=== PATIENT | female | born 1940 | race Caucasian/White ===

== ENCOUNTER 2017-04-24 15:45 | Observation (INO) | payer MEDICARE, OTHER ==
[2017-04-24 16:45] LABS: ABSOLUTE BASOPHILS # (AUTO) 0.1 10^3/uL (0.0-0.2); ABSOLUTE EOSINOPHILS # (AUTO) 0.2 10^3/uL (0.0-0.6); ABSOLUTE LYMPHOCYTES (AUTO) 2.8 10^3/uL (0.5-4.7); ABSOLUTE MONOCYTES (AUTO) 0.7 10^3/uL (0.1-1.4); HEMATOCRIT 41.6 % (36.0-47.0); HEMOGLOBIN 13.9 g/dL (12.0-15.5); HGB HCT DIFFERENCE 0.1; LYMPHOCYTES % (AUTO) 35.8 % (13-45); MEAN CORPUSCULAR HEMOGLOBIN 26.2 pg (27.0-33.4); MEAN CORPUSCULAR HGB CONC 33.4 g/dL (32.0-36.0); MEAN CORPUSCULAR VOLUME 78 fl (80-97); MONOCYTES % (AUTO) 9.5 % (3-13); RED BLOOD COUNT 5.31 10^6/uL (3.72-5.28); RED CELL DISTRIBUTION WIDTH 16.3 % (11.5-14.0); SEGMENTED NEUTROPHILS % (AUTO) 51.7 % (42-78); WHITE BLOOD COUNT 7.8 10^3/uL (4.0-10.5)
[2017-04-24 17:00] LABS: APPEARANCE,URINE CLEAR; BILIRUBIN,URINE NEGATIVE (NEGATIVE); GLUCOSE, URINE NEGATIVE (NEGATIVE); KETONES,URINE NEGATIVE (NEGATIVE); LEUKOCYTE ESTERASE,URINE NEGATIVE (NEGATIVE); NITRITE,URINE NEGATIVE (NEGATIVE); PROTEIN,URINE 100 mg/dL (NEGATIVE); URINE SPECIFIC GRAVITY 1.004; UROBILINOGEN,URINE NEGATIVE mg/dL (<2.0)
[2017-04-24 17:01] LABS: ALANINE AMINOTRANSFERASE 35 U/L (9-52); ALBUMIN 4.3 g/dL (3.5-5.0); ALKALINE PHOSPHATASE 117 U/L (38-126); ANION GAP 12 (5-19); ASPARTATE AMINO TRANSFERASE 31 U/L (14-36); BILIRUBIN,DIRECT 0.4 mg/dL (0.0-0.4); BILIRUBIN,TOTAL 0.4 mg/dL (0.2-1.3); BLOOD UREA NITROGEN 19 mg/dL (7-20); CALCIUM 10.1 mg/dL (8.4-10.2); CARBON DIOXIDE 24 mmol/L (22-30); CHLORIDE 104 mmol/L (98-107); CREATINE KINASE 69 U/L (30-135); CREATININE RESULT 1.13 mg/dL (0.52-1.25); GLUCOSE 104 mg/dL (75-110); LIPASE 240.5 U/L (23-300); POTASSIUM 4.4 mmol/L (3.6-5.0); SODIUM 140.2 mmol/L (137-145); TOTAL PROTEIN 7.6 g/dL (6.3-8.2)
--- NOTE | 2017-04-24 17:04 | ER Document Report ---
ED Medical Screen (RME) - General Chief Complaint: Weakness Stated Complaint: POSSIBLE STROKE Time Seen by Provider: 04/24/17 16:07 TRAVEL OUTSIDE OF THE [place] IN LAST 30 DAYS: No - HPI Notes: 04/24/17 17:03 Intermittent right-sided weakness slurred speech does not resolve initially started around 130 2:00 patient states has a history of irregular heartbeat. - Related Data Allergies/Adverse Reactions: levofloxacin [From Levaquin] Allergy (Verified 08/13/11 11:43) rash morphine [Morphine] Allergy (Verified 08/13/11 11:43) Hallucinations nitrofurantoin [From Macrobid] Allergy (Verified 08/13/11 11:43) rash nitrofurantoin macrocrystalline [From Macrobid] Allergy (Verified 08/13/11 11:43 ) rash sulfamethoxazole [From Septra] Allergy (Verified 08/13/11 11:43) kidney pain trimethoprim [From Septra] Allergy (Verified 08/13/11 11:43) kidney pain Past Medical History - Social History Chew tobacco use (# tins/day): No - 1 ppd Frequency of alcohol use: None Drug Abuse: None - Past Medical History Cardiac Medical History: Reports: Hx Hypercholesterolemia, Hx Hypertension Endocrine Medical History: Reports: Hx Diabetes Mellitus Type 2 Renal/ Medical History: Denies: Hx Peritoneal Dialysis Past Surgical History: Reports: Hx Section, Hx Tonsillectomy - Immunizations Hx Diphtheria, Pertussis, Tetanus Vaccination: Yes - 2011 Review of Systems - Review of Systems Constitutional: Other - Unilateral weakness and slurred speech Physical Exam - Vital signs Vitals: Temp Pulse Resp BP Pulse Ox 97.5 F 54 L 16 187/50 H 97 04/24/17 15:53 04/24/17 15:53 04/24/17 15:53 04/24/17 15:53 04/24/17 15:53 - Respiratory Respiratory status: No respiratory distress Chest status: Nontender Breath sounds: Normal Chest palpation: Normal Course - Vital Signs Vital signs: Temp Pulse Resp BP Pulse Ox 97.5 F 54 L 16 187/50 H 97 04/24/17 15:53 04/24/17 15:53 04/24/17 15:53 04/24/17 15:53 04/24/17 15:53 - Laboratory Result Diagrams: 04/24/17 16:30 04/24/17 16:30 Laboratory results interpreted by me: 04/24/17 16:30 RBC 5.31 H MCV 78 L MCH 26.2 L RDW 16.3 H
--- NOTE | 2017-04-24 17:04 | RADIOLOGY REPORT (SQ) ---
EXAM DESCRIPTION: CT HEAD WITHOUT COMPLETED DATE/TIME: 04/24/2017 4:56 pm REASON FOR STUDY: weakness COMPARISON: None. TECHNIQUE: Axial images acquired through the brain without intravenous contrast. Images reviewed wi th bone, brain and subdural windows. Images stored on PACS. All CT scanners at this facility use dose modulation, iterative reconstruction, and/or weight based d osing when appropriate to reduce radiation dose to as low as reasonably achievable (ALARA). [facility]: Dose Right [facility]: CareDose [facility]: Dose Right [facility]: Teradose 4D [facility]: Conjecta RADIATION DOSE: Up-to-date CT equipment and radiation dose reduction techniques were employed. CTDIv ol: 64.6 mGy. DLP: 1034 mGy-cm. mGy. LIMITATIONS: None. FINDINGS: VENTRICLES: Prominent. CEREBRUM: No masses. No hemorrhage. No midline shift. Areas of low density in the white matter mos t likely due to chronic micro-vascular ischemic change. No evidence for acute infarction. CEREBELLUM: No masses. No hemorrhage. No alteration of density. No evidence for acute infarction. EXTRAAXIAL SPACES: Mild age-related involutional change. No fluid collections. No masses. ORBITS AND GLOBE: No intra- or extraconal masses. Normal contour of globe without masses. CALVARIUM: No fracture. PARANASAL SINUSES: No fluid or mucosal thickening. SOFT TISSUES: No mass or hematoma. OTHER: No other significant finding. IMPRESSION: MILD CHRONIC CHANGES OF ATROPHY AND MICROVASCULAR ISCHEMIA. NO ACUTE PROCESS. TECHNICAL DOCUMENTATION: JOB ID: [id number] Quality ID # [id number]: Final reports with documentation of one or more dose reduction techniques (e.g., Au tomated exposure control, adjustment of the mA and/or kV according to patient size, use of iterative reconstruction technique) 2010 [employer]- All Rights Reserved
--- NOTE | 2017-04-24 17:05 | RADIOLOGY REPORT (SQ) ---
EXAM DESCRIPTION: CHEST SINGLE VIEW COMPLETED DATE/TIME: 04/24/2017 4:57 pm REASON FOR STUDY: tia symtpoms COMPARISON: None. EXAM PARAMETERS: NUMBER OF VIEWS: One view. TECHNIQUE: Single frontal radiographic view of the chest acquired. RADIATION DOSE: NA LIMITATIONS: None. FINDINGS: LUNGS AND PLEURA: No opacities, masses or pneumothorax. No pleural effusion. MEDIASTINUM AND HILAR STRUCTURES: No masses. Contour normal. HEART AND VASCULAR STRUCTURES: Heart normal in size. Normal vasculature. BONES: No acute findings. HARDWARE: None in the chest. OTHER: No other significant finding. IMPRESSION: NO ACUTE RADIOGRAPHIC FINDING IN THE CHEST. TECHNICAL DOCUMENTATION: JOB ID: [id number]
[2017-04-24 17:13] LABS: CREATINE KINASE MB 0.64 ng/mL (<4.55)
[2017-04-24 17:25] LABS: TROPONIN I < 0.012 ng/mL
--- NOTE | 2017-04-24 18:09 | ER Document Report ---
ED Neuro Symptoms/Deficit <SUSANNAHMAURO - Last Filed: 04/24/17 19:35> - General Mode of Arrival: Ambulatory Information source: Patient Notes: Patient is a 77 year old female presenting to the emergency department for stroke like symptoms. Patient's symptoms were onset around 13:30-13:45 while she was at the store. Patient states she started having some right upper extremity weakness and was having difficulty raising her arm to grab the steering wheel. Patient states she was able to get home however she continued to have some weakness in her right side as well as some difficulty moving her right lower extremity. Patient states she took half a 325 mg Aspirin when she got home from the store. Patient contacted her son at 14:30 and she continued to have symptoms when he arrived including right upper and lower extremities, right facial weakness, and some slurred speech. Patient had to be lifted into the vehicle by her son because she wasn't able to ambulate or brain picker her right lower extremity. Patient was dragging her foot earlier when walking. Patient states that once she arrived at the emergency department she started getting a little better and after being brought to her room she states she has full strength and mobility in her upper and lower extremities. Patient's son states that her speech is back to normal and she is doing much better than she was when he arrived to her house. Patient states she has a history of diabetes mellitus, hypertension, hypercholesterolemia, anemia, and a heart murmur. Patient states she takes iron supplements and started taking 325 mg Aspirin daily. Patient also states she had a carotid Doppler completed 6 months ago and her PCP also found her heart murmur about 3 months ago. Patient's PCP is Dr. Vu. TRAVEL OUTSIDE OF THE [place] IN LAST 30 DAYS: No - HPI Altered sensation: RUE, R facial Associated symptoms: Other - slurred speech Similar symptoms previously: No Recently seen / treated by doctor: No <ALINE GENTILE - Last Filed: 04/24/17 22:37> - General Chief Complaint: Weakness Stated Complaint: POSSIBLE STROKE Time Seen by Provider: 04/24/17 16:07 - Related Data Allergies/Adverse Reactions: levofloxacin [From Levaquin] Allergy (Verified 08/13/11 11:43) rash morphine [Morphine] Allergy (Verified 08/13/11 11:43) Hallucinations nitrofurantoin [From Macrobid] Allergy (Verified 08/13/11 11:43) rash nitrofurantoin macrocrystalline [From Macrobid] Allergy (Verified 08/13/11 11:43 ) rash sulfamethoxazole [From Septra] Allergy (Verified 08/13/11 11:43) kidney pain trimethoprim [From Septra] Allergy (Verified 08/13/11 11:43) kidney pain Past Medical History - General Information source: Patient - Social History Smoking Status: Current Every Day Smoker Cigarette use (# per day): Yes - 1 ppd Frequency of alcohol use: None Drug Abuse: None Family History: None Patient has suicidal ideation: No Patient has homicidal ideation: No - Medical History Medical History: Other - anemia - Past Medical History Cardiac Medical History: Reports: Hx Hypercholesterolemia, Hx Hypertension Endocrine Medical History: Reports: Hx Diabetes Mellitus Type 2 Past Surgical History: Reports: Hx Section, Hx Tonsillectomy - Immunizations Hx Diphtheria, Pertussis, Tetanus Vaccination: Yes - 2011 Hx Pneumococcal Vaccination: 08/09/11 <ALINE GENTILE - Last Filed: 04/24/17 22:37> Review of Systems - Review of Systems Constitutional: No symptoms reported EENT: No symptoms reported Cardiovascular: No symptoms reported Respiratory: No symptoms reported Gastrointestinal: No symptoms reported Genitourinary: No symptoms reported Female Genitourinary: No symptoms reported Musculoskeletal: See HPI Skin: No symptoms reported Hematologic/Lymphatic: No symptoms reported Neurological/Psychological: See HPI, Weakness, Gait changes, Speech impairment -: Yes All other systems reviewed and negative <ALINE GENTILE - Last Filed: 04/24/17 22:37> Physical Exam - Vital signs Vitals: Temp Pulse Resp BP Pulse Ox 97.5 F 54 L 16 187/50 H 97 04/24/17 15:53 04/24/17 15:53 04/24/17 15:53 04/24/17 15:53 04/24/17 15:53 <MAURO DAVALOS - Last Filed: 04/24/17 19:35> - Vital signs Vitals: Temp Pulse Resp BP Pulse Ox 97.5 F 54 L 16 187/50 H 97 04/24/17 15:53 04/24/17 15:53 04/24/17 15:53 04/24/17 15:53 04/24/17 15:53 Interpretation: Hypertensive - Notes Notes: GENERAL: Alert, interacts well. No acute distress. HEAD: Normocephalic, atraumatic. EYES: Appear normal. Pupils equal, round, and reactive to light. ENT: Moist mucus membranes, tongue midline. NECK: Full range of motion. Supple. Trachea midline. Systolic murmur heard in the carotids bilaterally. LUNGS: Clear to auscultation bilaterally, no wheezes, rales, or rhonchi. No respiratory distress. HEART: Regular rate and rhythm. Systolic murmur that transmits into her carotids bilaterally. ABDOMEN: Soft, non-tender. Non-distended. Normal bowel sounds. EXTREMITIES: Moves all 4 extremities spontaneously. Normal strength. No edema. Equal microbiological laboratory technician strength. Able to touch each index finger to nose with eyes closed. Able to lift lower extremities off the bed and hold position. NEUROLOGICAL: Alert and oriented x3. Normal speech. No focal neurological deficits. GCS 15. PSYCH: Normal affect, normal mood. SKIN: Warm, dry, normal turgor. No rashes or lesions noted. <ALINE GENTILE - Last Filed: 04/24/17 22:37> Course - Re-evaluation Re-evalutation: 04/24/17 19:27 The patient is symptom-free at this time with a normal neurological exam. She is not a TPA candidate at this time. - Vital Signs Vital signs: Temp Pulse Resp BP Pulse Ox 97.5 F 50 L 17 184/61 H 96 04/24/17 15:53 04/24/17 18:00 04/24/17 19:02 04/24/17 19:02 04/24/17 19:02 - Laboratory Result Diagrams: 04/24/17 16:30 04/24/17 16:30 Laboratory results interpreted by me: 04/24/17 04/24/17 04/24/17 16:30 16:30 16:40 RBC 5.31 H MCV 78 L MCH 26.2 L RDW 16.3 H Est GFR ( Amer) 56 L Est GFR (Non-Af Amer) 47 L Urine Protein 100 H - Diagnostic Test Radiology reviewed: Image reviewed, Reports reviewed - Chest x-ray is unremarkable, CT scan shows mild chronic atrophy and microvascular ischemic white matter changes - EKG Interpretation by [place] EKG shows normal: Sinus rhythm, [place], Intervals, QRS Complexes. abnormal: ST-T Waves - Abnormal lateral T's Rate: Bradycardia - 47 When compared to previous EKG there are: Previous EKG unavailable - Consults Dr. Soliz Time consulted: 19:25 Consulted provider: will come to ER - IMCU admission, add on ESR <MAURO DAVALOS - Last Filed: 04/24/17 19:35> - Vital Signs Vital signs: Temp Pulse Resp BP Pulse Ox 97.5 F 54 L 16 187/50 H 97 04/24/17 15:53 04/24/17 15:53 04/24/17 15:53 04/24/17 15:53 04/24/17 15:53 - Laboratory Result Diagrams: 04/24/17 16:30 04/24/17 16:30 Laboratory results interpreted by me: 04/24/17 04/24/17 04/24/17 16:30 16:30 16:40 RBC 5.31 H MCV 78 L MCH 26.2 L RDW 16.3 H Est GFR ( Amer) 56 L Est GFR (Non-Af Amer) 47 L Urine Protein 100 H <ALINE GENTILE - Last Filed: 04/24/17 22:37> ED [employer]/Exc Criteria ED NIH Stroke Scale Discharge - Discharge Admitting Provider: Hospitalist Unit Admitted: [facility] Scribe Attestation: 04/24/17 19:35 I personally performed the services described in the documentation, reviewed and edited the documentation which was dictated to the scribe in my presence, and it accurately records my words and actions. <MAURO DAVALOS - Last Filed: 04/24/17 19:35> <ALINE GENTILE - Last Filed: 04/24/17 22:37> - Discharge Clinical Impression: Transient ischemic attack (TIA) Qualifiers: Transient cerebral ischemia type: unspecified Qualified Code(s): G45.9 - Transient cerebral ischemic attack, unspecified High blood pressure Qualifiers: Hypertension type: essential hypertension Qualified Code(s): I10 - Essential ( primary) hypertension Condition: Stable Disposition: ADMITTED INPATIENT Scribe Documentation - Scribe Written by Scribe:: Cisco Velez 04/24/2017 18:20 acting as scribe for :: Susannah <ALINE GENTILE - Last Filed: 04/24/17 22:37>
[2017-04-24 19:29] LABS: ADD ON TESTING BLD IN LAB ACKNOWLEDGE
[2017-04-24] MEDS ORDERED: INSULIN LISPRO 100 UNIT/ML 3 ML VIAL SUBCUT PRN (19:30)
[2017-04-24] MEDS ORDERED: MAGNESIUM HYDROXIDE SUSP 30 ML UDCUP PO PRN (19:30)
[2017-04-24] MEDS ORDERED: DEXTROSE 40% GEL 15 GM TUBE PO PRN ×2 (19:30)
[2017-04-24] MEDS ORDERED: ACETAMINOPHEN 325 MG TABLET PO PRN (19:30)
[2017-04-24] MEDS ORDERED: GLUCAGON,HUMAN RECOMB 1 MG INJ IM PRN (19:30)
[2017-04-24] MEDS ORDERED: DEXTROSE 50%-WATER 25 GM/50 ML DISP.SYRIN IV PRN ×2 (19:30)
[2017-04-24] MEDS ORDERED: ATORVASTATIN CALCIUM 80 MG TABLET PO ONE (19:32)
[2017-04-24 19:48] LABS: C-REACTIVE PROTEIN < 5.0 mg/L (<10.0)
[2017-04-24] MEDS ORDERED: ASPIRIN/DIPYRIDAMOLE 25-200 MG 1 CAP.SR CPMP.12HR PO ONE (20:00)
[2017-04-24] MEDS: HEPARIN SOD (PORCINE) 5,000 UNIT/ML 1 ML SYRINGE SUBCUT SCH (21:07)
[2017-04-24] MEDS: ENALAPRILAT DIHYDRATE INJ/PF 1.25 MG/1 ML SDV IV PRN (22:34)
--- NOTE | 2017-04-24 23:35 | EKG REPORT ---
SEVERITY:- ABNORMAL ECG - SINUS BRADYCARDIA ABNORMAL T, CONSIDER ISCHEMIA, LATERAL LEADS : Confirmed by: Patricia Caballero 24-Apr-2017 23:34:31
--- NOTE | 2017-04-25 05:38 | PDOC H&P ---
History of Present Illness Admission Date/PCP: 04/24/17 19:30 MARGIE GARNETT MD Patient complains of: Right arm weakness and slurred speech History of Present Illness: ALYSON GARCIA is a 77 year old female with a past medical history of hypertension , diabetes, dyslipidemia, systolic murmur and tobacco who would been her usual state of health until approximately 6 hours prior to presentation. While attempting to start her car she was unable to raise her right arm to the steering wheel. The weakness resolved spontaneously and and she took 325 mg of aspirin followed by right facial weakness and some slurred speech. These symptoms prompted her evaluation emergency room where she is found to have a blood pressure of 187/50 and sinus bradycardia but symptoms of weakness and slurred speech have resolved completely. Patient denies hypoglycemia, previous episode, any recent change in medications, she is referred to the hospitalist for admission. Past Medical History Cardiac Medical History: Reports: Hyperlipidema, Hypertension Endocrine Medical History: Reports: Diabetes Mellitus Type 2 Psychiatric Medical History: Reports: Depression Past Surgical History Past Surgical History: Reports: Section, Tonsillectomy Social History Smoking Status: Current Every Day Smoker Cigarettes Packs Per Day: 1 Number of Years Smokin Last Time Smoked: 04/24/2017 Frequency of Alcohol Use: None Hx Recreational Drug Use: No Drugs: None - Advance Directive Resuscitation Status: Full Code Family History Family History: None, CVA Parental Family History Reviewed: Yes Children Family History Reviewed: Yes Sibling(s) Family History Reviewed.: Yes Medication/Allergy Home Medications: Amlodipine Besylate [Norvasc 10 mg Tablet] 10 mg PO DAILY 08/13/11 Ascorbic Acid [Vitamin C 500 Mg Tablet] 500 mg PO DAILY 08/13/11 Aspirin [Aspirin 81 mg Chewable Tablet] 81 mg PO DAILY 08/13/11 Atorvastatin Calcium [Lipitor 80 Mg Tablet] 80 mg PO QHS 08/13/11 Calcium/Magnesium/Vit D3 [Calcium 500 Mg Tablet] 1 each PO DAILY 08/13/11 Ezetimibe [Zetia 10 Mg Tablet] 10 mg PO DAILY 08/13/11 Hydrochlorothiazide [Hydrodiuril 25 mg Tablet] 25 mg PO QAM 08/13/11 Lisinopril [Prinivil 40 mg Tablet] 40 mg PO DAILY 08/13/11 Metformin HCl [Glucophage Xr] 500 mg PO QPM 08/13/11 [place]-3 Fatty Acids/Fish Oil [Fish Oil 1,000 Mg Capsule] 1 each PO DAILY Allergies/Adverse Reactions: levofloxacin [From Levaquin] Allergy (Verified 08/13/11 11:43) rash morphine [Morphine] Allergy (Verified 08/13/11 11:43) Hallucinations nitrofurantoin [From Macrobid] Allergy (Verified 08/13/11 11:43) rash nitrofurantoin macrocrystalline [From Macrobid] Allergy (Verified 08/13/11 11:43 ) rash sulfamethoxazole [From Septra] Allergy (Verified 08/13/11 11:43) kidney pain trimethoprim [From Septra] Allergy (Verified 08/13/11 11:43) kidney pain Review of Systems Constitutional: ABSENT: chills, fever(s), headache(s), weight gain, weight loss Eyes: ABSENT: visual disturbances Ears: ABSENT: hearing changes Cardiovascular: ABSENT: chest pain, dyspnea on exertion, edema, orthropnea, palpitations Respiratory: ABSENT: cough, hemoptysis Gastrointestinal: ABSENT: abdominal pain, constipation, diarrhea, hematemesis, hematochezia, nausea, vomiting Genitourinary: ABSENT: dysuria, hematuria Musculoskeletal: ABSENT: joint swelling Integumentary: ABSENT: rash, wounds Neurological: ABSENT: abnormal gait, abnormal speech, confusion, dizziness, focal weakness, syncope Psychiatric: ABSENT: anxiety, depression, homidical ideation, suicidal ideation Endocrine: ABSENT: cold intolerance, heat intolerance, polydipsia, polyuria Hematologic/Lymphatic: ABSENT: easy bleeding, easy bruising Physical Exam Vital Signs: Temp Pulse Resp BP Pulse Ox 98.0 F 46 L 20 161/47 H 95 04/25/17 03:42 04/25/17 03:42 04/25/17 03:42 04/25/17 03:42 04/25/17 03:42 Intake & Output 04/23/17 04/24/17 04/25/17 11:59 11:59 11:59 Weight 74.6 kg General appearance: PRESENT: no acute distress, well-developed, well-nourished Head exam: PRESENT: atraumatic, normocephalic Eye exam: PRESENT: conjunctiva pink, EOMI, PERRLA. ABSENT: scleral icterus Ear exam: PRESENT: normal external ear exam Mouth exam: PRESENT: moist, tongue midline Neck exam: PRESENT: other - Systolic murmur radiating to the carotid artery bilaterally. ABSENT: carotid bruit, JVD, lymphadenopathy, thyromegaly Respiratory exam: PRESENT: clear to auscultation tenisha. ABSENT: rales, rhonchi, wheezes Cardiovascular exam: PRESENT: bradycardia, RRR, +S1, +S2, systolic murmur. ABSENT: diastolic murmur, gallop, rubs Pulses: PRESENT: normal dorsalis pedis pul Vascular exam: PRESENT: normal capillary refill GI/Abdominal exam: PRESENT: normal bowel sounds, soft. ABSENT: distended, guarding, mass, organolmegaly, rebound, tenderness Rectal exam: PRESENT: deferred Extremities exam: PRESENT: full ROM. ABSENT: calf tenderness, clubbing, pedal edema Neurological exam: PRESENT: alert, awake, oriented to person, oriented to place , oriented to time, oriented to situation, CN II-XII grossly intact. ABSENT: motor sensory deficit Psychiatric exam: PRESENT: appropriate affect, normal mood. ABSENT: homicidal ideation, suicidal ideation Skin exam: PRESENT: dry, intact, warm. ABSENT: cyanosis, rash Results Laboratory Results: 04/24/17 19:50 Troponin I < 0.012 Impressions: Chest X-Ray 04/24/17 16:07 IMPRESSION: NO ACUTE RADIOGRAPHIC FINDING IN THE CHEST. Head CT 04/24/17 16:07 IMPRESSION: MILD CHRONIC CHANGES OF ATROPHY AND MICROVASCULAR ISCHEMIA. NO ACUTE PROCESS. Assessment & Plan - Diagnosis (1) Transient ischemic attack (TIA) Qualifiers: Transient cerebral ischemia type: unspecified Qualified Code(s): G45.9 - Transient cerebral ischemic attack, unspecified Is this a current diagnosis for this admission?: Yes Plan: CVA care set, aspirin, Lipitor, permissive hypertension, follow-up carotid Doppler, MRI and echocardiogram. (2) Systolic murmur Is this a current diagnosis for this admission?: Yes Plan: Suspected aortic stenosis, follow-up 2D echo (3) High blood pressure Qualifiers: Hypertension type: essential hypertension Qualified Code(s): I10 - Essential (primary) hypertension Is this a current diagnosis for this admission?: Yes Plan: Permissive hypertension as needed Vasotec (4) Dyslipidemia Is this a current diagnosis for this admission?: Yes Plan: Lipid profile (5) Diabetes Is this a current diagnosis for this admission?: Yes Plan: Metformin held, sliding scale insulin and A1c ordered - Time Time Spent: 50 to 70 Minutes
[2017-04-25 05:41] LABS: ABSOLUTE BASOPHILS # (AUTO) 0.1 10^3/uL (0.0-0.2); ABSOLUTE EOSINOPHILS # (AUTO) 0.1 10^3/uL (0.0-0.6); ABSOLUTE LYMPHOCYTES (AUTO) 2.6 10^3/uL (0.5-4.7); ABSOLUTE MONOCYTES (AUTO) 0.9 10^3/uL (0.1-1.4); ABSOLUTE NEUT (AUTO) 4.2 10^3/uL (1.7-8.2); BASOPHILS % (AUTO) 1.3 % (0-2); EOSINOPHILS % (AUTO) 1.5 % (0-6); HEMATOCRIT 36.7 % (36.0-47.0); HEMOGLOBIN 12.5 g/dL (12.0-15.5); HGB HCT DIFFERENCE 0.8; LYMPHOCYTES % (AUTO) 33.3 % (13-45); MEAN CORPUSCULAR HEMOGLOBIN 26.3 pg (27.0-33.4); MEAN CORPUSCULAR VOLUME 77 fl (80-97); MONOCYTES % (AUTO) 10.9 % (3-13); RED BLOOD COUNT 4.75 10^6/uL (3.72-5.28); RED CELL DISTRIBUTION WIDTH 16.2 % (11.5-14.0); WHITE BLOOD COUNT 7.9 10^3/uL (4.0-10.5)
[2017-04-25] MEDS: HEPARIN SOD (PORCINE) 5,000 UNIT/ML 1 ML SYRINGE SUBCUT SCH ×3 (05:47→21:26)
[2017-04-25 05:58] LABS: ANION GAP 8 (5-19); BLOOD UREA NITROGEN 19 mg/dL (7-20); CALCIUM 9.7 mg/dL (8.4-10.2); CARBON DIOXIDE 26 mmol/L (22-30); CHLORIDE 108 mmol/L (98-107); CHOLESTEROL 147.95 mg/dL (0-200); CREATININE RESULT 1.05 mg/dL (0.52-1.25); Direct HDL 25 mg/dL (>40); GLUCOSE 114 mg/dL (75-110); POTASSIUM 3.8 mmol/L (3.6-5.0); SODIUM 141.5 mmol/L (137-145); TRIGLYCERIDES 174 mg/dL (<150)
[2017-04-25 06:08] LABS: DIRECT LDL 99 mg/dL (<100)
[2017-04-25 06:15] LABS: VLDL CHOLESTEROL 34.8 mg/dL (10-31)
[2017-04-25] MEDS: ENALAPRILAT DIHYDRATE INJ/PF 1.25 MG/1 ML SDV IV PRN ×2 (08:23→23:45)
[2017-04-25] MEDS ORDERED: ASPIRIN/DIPYRIDAMOLE 25-200 MG 1 CAP.SR CPMP.12HR PO SCH (10:00)
--- NOTE | 2017-04-25 15:42 | RADIOLOGY REPORT (SQ) ---
EXAM DESCRIPTION: MRI HEAD WITHOUT COMPLETED DATE/TIME: 04/25/2017 3:25 pm REASON FOR STUDY: tia COMPARISON: CT dated 04/24/2017. TECHNIQUE: Multiplanar imaging includes non-contrasted T1, T2, FLAIR, and Diffusion with ADC map seq uences. Images stored on PACS. LIMITATIONS: None. FINDINGS: ANATOMY: No anomalies. Normal vascular flow voids. Pituitary fossa normal. CSF SPACES: Normal in size and contour. No hemorrhage. CEREBRUM: A few high-signal intensity lesions scattered throughout the white matter on FLAIR imaging with distribution suggesting chronic micro-vascular ischemic change. Sulci and gyri normal in size a nd contour. No evidence of hemorrhage, mass or extraaxial fluid collection. POSTERIOR FOSSA: No signal alteration. No hemorrhage. No edema, masses or mass effect. Internal bill tory canals, cerebello-pontine angles, mastoids normal. DIFFUSION: Small 2 mm focal area of mild restricted diffusion in the posterior left lentiform nucleus . ORBITS: No masses. Globes normal. PARANASAL SINUSES: No fluid levels. Mucosa normal. OTHER: No other significant finding. IMPRESSION: MINIMAL MICROVASCULAR ISCHEMIC CHANGE. POSSIBLE TINY ACUTE LACUNAR INFARCT IN THE LEFT BASAL GANGLIA. OTHERWISE NORMAL STUDY. EVIDENCE OF ACUTE STROKE: POSSIBLE TINY ACUTE LACUNAR INFARCT IN THE LEFT BASAL GANGLIA. LEFT MCA TECHNICAL DOCUMENTATION: JOB ID: [id number] [employer]- All Rights Reserved
[2017-04-25] MEDS ORDERED: METFORMIN HCL 500 MG TABLET PO SCH ×2 (16:00)
[2017-04-25] MEDS ORDERED: SITAGLIPTIN PHOSPHATE 50 MG TABLET PO SCH (17:00)
[2017-04-25] MEDS ORDERED: METFORMIN HCL 500 MG TABLET PO ONE (17:00)
--- NOTE | 2017-04-25 17:20 | PDOC PROGRESS REPORT ---
Subjective Progress Note for:: 04/25/17 Subjective:: Patient seen on morning rounds. She is resting comfortably in bed. She is awake alert and oriented 3. Right arm weakness and slurred speech have resolved. She denies any chest pain, shortness of breath or dyspnea. Denies any nausea, vomiting or abdominal pain. She denies any significant arthralgias or myalgias. Her son is at bedside. Patient does live independently alone. Her is at primary after having CVA in November. Remaining review of systems is negative. Physical Exam Vital Signs: Temp Pulse Resp BP Pulse Ox 98.0 F 57 L 16 193/55 H 97 04/25/17 11:45 04/25/17 14:00 04/25/17 11:45 04/25/17 11:45 04/25/17 11:45 Intake & Output 04/24/17 04/25/17 04/26/17 06:59 06:59 06:59 Intake Total 3 Balance 3 Weight 74.6 kg General appearance: PRESENT: no acute distress, well-developed, well-nourished Head exam: PRESENT: atraumatic, normocephalic Eye exam: PRESENT: conjunctiva pink, EOMI, PERRLA. ABSENT: scleral icterus Ear exam: PRESENT: normal external ear exam Mouth exam: PRESENT: moist, tongue midline Neck exam: ABSENT: carotid bruit, JVD, lymphadenopathy, thyromegaly Respiratory exam: PRESENT: clear to auscultation tenisha. ABSENT: rales, rhonchi, wheezes Cardiovascular exam: PRESENT: RRR. ABSENT: diastolic murmur, rubs, systolic murmur Pulses: PRESENT: normal dorsalis pedis pul Vascular exam: PRESENT: normal capillary refill GI/Abdominal exam: PRESENT: normal bowel sounds, soft. ABSENT: distended, guarding, mass, organolmegaly, rebound, tenderness Rectal exam: PRESENT: deferred Extremities exam: PRESENT: full ROM. ABSENT: calf tenderness, clubbing, pedal edema Musculoskeletal exam: PRESENT: ambulatory, full ROM, normal inspection, tenderness Neurological exam: PRESENT: alert, awake, oriented to person, oriented to place , oriented to time, oriented to situation, CN II-XII grossly intact. ABSENT: motor sensory deficit Psychiatric exam: PRESENT: appropriate affect, normal mood. ABSENT: homicidal ideation, suicidal ideation Skin exam: PRESENT: dry, intact, warm. ABSENT: cyanosis, rash Results Laboratory Results: 04/25/17 04:43 04/25/17 04:43 04/25/17 04/25/17 04:43 04:43 WBC 7.9 RBC 4.75 Hgb 12.5 Hct 36.7 MCV 77 L MCH 26.3 L MCHC 34.0 RDW 16.2 H Plt Count 224 Seg Neutrophils % 53.0 Lymphocytes % 33.3 Monocytes % 10.9 Eosinophils % 1.5 Basophils % 1.3 Absolute Neutrophils 4.2 Absolute Lymphocytes 2.6 Absolute Monocytes 0.9 Absolute Eosinophils 0.1 Absolute Basophils 0.1 Sodium 141.5 Potassium 3.8 Chloride 108 H Carbon Dioxide 26 Anion Gap 8 BUN 19 Creatinine 1.05 Est GFR ( Amer) > 60 Est GFR (Non-Af Amer) 51 L Glucose 114 H Calcium 9.7 Triglycerides 174 H Cholesterol 147.95 LDL Cholesterol Direct 99 VLDL Cholesterol 34.8 H HDL Cholesterol 25 L 04/24/17 19:50 Troponin I < 0.012 Impressions: Chest X-Ray 04/24/17 16:07 IMPRESSION: NO ACUTE RADIOGRAPHIC FINDING IN THE CHEST. Head CT 04/24/17 16:07 IMPRESSION: MILD CHRONIC CHANGES OF ATROPHY AND MICROVASCULAR ISCHEMIA. NO ACUTE PROCESS. Head MRI 04/25/17 05:28 IMPRESSION: MINIMAL MICROVASCULAR ISCHEMIC CHANGE. POSSIBLE TINY ACUTE LACUNAR INFARCT IN THE LEFT BASAL GANGLIA. OTHERWISE NORMAL STUDY. EVIDENCE OF ACUTE STROKE: POSSIBLE TINY ACUTE LACUNAR INFARCT IN THE LEFT BASAL GANGLIA. LEFT MCA Assessment & Plan - Diagnosis (1) CVA (cerebral vascular accident) Qualifiers: CVA mechanism: embolism Laterality of affected vessel: left Is this a current diagnosis for this admission?: Yes Plan: MRIs demonstrates an acute small left lacunar infarct. Her symptoms of right arm weakness and slurred speech have resolved she was on full aspirin and lipitor. Aggrenox twice daily. Improved blood pressure management. PT, OT and speech to evaluate patient she needs no further follow-up per (2) Diabetes Qualifiers: Diabetes mellitus type: type 2 Is this a current diagnosis for this admission?: Yes Plan: Continue patient's home medication with sliding scale coverage. (3) Dyslipidemia Is this a current diagnosis for this admission?: Yes Plan: Continue statin at full dose. (4) High blood pressure Qualifiers: Hypertension type: essential hypertension Qualified Code(s): I10 - Essential (primary) hypertension Is this a current diagnosis for this admission?: Yes Plan: Continues to be extremely hypertensive. She is on max dose of Norvasc and lisinopril. Will DC lisinopril start losartan 50 mg twice daily continue metoprolol 100 mg daily she has HR in the high 40s to low 50s therefore will not increase this at the present (5) Systolic murmur Is this a current diagnosis for this admission?: Yes - Time Time Spent with patient: 25-34 minutes Critical Time spent with patient: 15-24 minutes Medications reviewed and adjusted accordingly: Yes
[2017-04-25] MEDS: FERROUS SULFATE 325 MG TABLET PO SCH (18:19)
--- NOTE | 2017-04-25 20:30 | XCELERA REPORT ---
[address] [address] Transthoracic Echocardiogram Report Name: ALYSON GARCIA Age: 77 yrs Gender: Female : 1940 Patient Status: Inpatient Patient Location: [address] [place], [place] [address] Study Date: 04/25/2017 08:23 AM Height: 67 in Weight: 164 lb BSA: 1.9 m2 Reason For Study: tia Ordering Physician: DASH BROWN Performed By: Emilia Mae Interpretation Summary AV sclerosis kai with Non cor cusps., no vegetations. no no AR. No LA clot/myxoma, no LV apical thrombus, no MV vegetations. no ASD Normal LVEF, some LVH concentric, LV diastolic dysfunction, no LV dilation. MMode/2D Measurements & Calculations RVDd: 3.7 cm LVIDd: 4.8 cm FS: 34.1 % Ao root diam: IVSd: 0.85 cm LVIDs: 3.2 cm EDV(Teich): 2.5 cm LVPWd: 0.80 cm 106.5 ml Ao root area: ESV(Teich): 39.4 ml 5.1 cm2 EF(Teich): 63.0 % LVOT diam: EDV(MOD-sp4): SV(MOD-sp4): 2.0 cm 93.4 ml 52.3 ml LVOT area: ESV(MOD-sp4): 3.1 cm2 41.1 ml EF(MOD-sp4): 56.0 % Doppler Measurements & Calculations MV E max jose: MV dec slope: Ao V2 max: LV V1 max P.7 cm/sec 138.0 cm/sec 3.9 mmHg MV A max jose: 287.2 cm/sec2 Ao max PG: LV V1 max: 101.0 cm/sec MV dec time: 7.6 mmHg 98.5 cm/sec MV E/A: 0.73 0.26 sec GIOVANNA(V,D): 2.2 cm2 PA V2 max: PI end-d jose: 84.8 cm/sec 87.1 cm/sec PA max P.9 mmHg Left Ventricle The left ventricle is grossly normal size. The left ventricular ejection fraction is normal. LV EF is 60-65%. Doppler measurements suggest impaired left ventricular relaxation, which is associated with grade I/IV or mild diastolic dysfunction. There is anterior wall mild hypokinesis. There is no thrombus. Right Ventricle The right ventricle is normal in size, thickness and function. Atria The right atrium is normal. The left atrium is mildly dilated. No left atrial mass or thrombus visualized. The interatrial septum is intact with no evidence for an atrial septal defect. Mitral Valve The mitral valve is normal in structure and function. There is no evidence of mitral valve prolapse. There is no mitral valve stenosis. There is a trace amount of mitral regurgitation. Aortic Valve The aortic valve is trileaflet. The aortic valve opens well. There is no aortic valvular vegetation. There is no aortic valve stenosis. No aortic regurgitation is present. Tricuspid Valve The tricuspid is normal in structure and function. There is no tricuspid valve prolapse. There is no tricuspid stenosis. No tricuspid regurgitation. Pulmonic Valve There is a mild amount of pulmonic regurgitation. Great Vessels There is aortic root sclerosis/calcification. Effusions Minimal pericardial effusion. I WMSI = 1.19 % Normal = 81 Segments Size X - Cannot 2 - 4 - 1-2 small Interpret 1 - Normal Hypokinetic 3 - AkineticDyskinetic 3-5 moderate 5 - 6-14 large Aneurysmal 15-16 diffuse : DASH BROWN > Abiel Bond
[2017-04-25] MEDS: ASPIRIN/DIPYRIDAMOLE 25-200 MG 1 CAP.SR CPMP.12HR PO SCH (21:26)
[2017-04-25] MEDS: LOSARTAN POTASSIUM 50 MG TABLET PO SCH (21:26)
[2017-04-25] MEDS ORDERED: ATORVASTATIN CALCIUM 80 MG TABLET PO SCH (22:00)
[2017-04-26] MEDS: HEPARIN SOD (PORCINE) 5,000 UNIT/ML 1 ML SYRINGE SUBCUT SCH (05:55)
[2017-04-26] MEDS ORDERED: LANSOPRAZOLE 30 MG TAB.RAP.DR PO SCH (06:00)
[2017-04-26] MEDS ORDERED: AMLODIPINE BESYLATE 10 MG TABLET PO SCH (08:00)
[2017-04-26] MEDS ORDERED: FUROSEMIDE 40 MG TABLET PO SCH (08:00)
[2017-04-26] MEDS ORDERED: ASPIRIN 325 MG TABLET, ENT COATED PO SCH (08:00)
[2017-04-26] MEDS ORDERED: METFORMIN HCL 500 MG TABLET PO SCH (08:00)
--- NOTE | 2017-04-26 09:17 | Physician Advisory Note ---
Physician Advisor ProgressNote .: Pursuant to the plan for [facility], I have reviewed the medical record for this patient. Physician Advisor Statement: Please consider documenting, if you agree: 1. "Acute Lt-sided thrombotic [or embolic, ...] MCA stroke with cerebral infarction, with Rt dominant arm weakness & aphasia, resolved [or improved ]" 2. Status - see below STatus: 77yo Medicare pt found to have acute infarction by MRI. Still w/BPs extremely elevated on 04/25, concerning attending who felt they needed to be improved before she could safely be d/c'd home, and acutely changed her meds, therefore needing 2nd night of hospital care/monitoring. Appropriate for change to Inpatient status. (Even if she can then go home today.) Thanks! CK
[2017-04-26] MEDS: LOSARTAN POTASSIUM 50 MG TABLET PO SCH (09:39)
[2017-04-26] MEDS: ASPIRIN/DIPYRIDAMOLE 25-200 MG 1 CAP.SR CPMP.12HR PO SCH (09:39)
[2017-04-26] MEDS: FERROUS SULFATE 325 MG TABLET PO SCH (09:40)
[2017-04-26] MEDS ORDERED: METOPROLOL SUCCINATE 50 MG TAB.SR.24H PO SCH ×2 (10:00)
[2017-04-26] MEDS ORDERED: LISINOPRIL 10 MG TABLET PO SCH (10:00)
[2017-04-26] MEDS ORDERED: (PENDING PHARMACY ID) (Cholecalciferol (Vitamin D3) [Vitamin D3] 1,000 UNIT) PO SCH (10:00)
[2017-04-26] MEDS ORDERED: EZETIMIBE 10 MG TABLET PO SCH (10:00)
[2017-04-26 11:16] VITALS: BP 153/51
--- NOTE | 2017-04-26 15:27 | PDOC DISCHARGE SUMMARY ---
General - Admit/Disc Date/PCP Admission Date/Primary Care Provider: 04/24/17 19:30 MARGIE GARNETT MD Discharge Date: 04/26/17 - Discharge Diagnosis (1) CVA (cerebral vascular accident) Is this a current diagnosis for this admission?: Yes Summary: Patient initially presented for sudden onset right sided weakness with slurred speech. MRI of the head demonstrated a possible tiny acute lenicular infarction of the left basal ganglia. She was on full dose aspirin and Lipitor. Her right arm weakness and slurred speech resolved completely. She was started on Aggrenox twice daily. Blood pressure medications were adjusted. PT, OT, ST evaluated the patient and determined that she required no additional follow-up. (2) Diabetes Is this a current diagnosis for this admission?: Yes Summary: Patient was continued on her home medications. She had no hypoglycemic events. (3) Dyslipidemia Is this a current diagnosis for this admission?: Yes Summary: Continues on full dose statin (4) High blood pressure Is this a current diagnosis for this admission?: Yes Summary: Patient was admitted on max dose Norvasc and lisinopril and remained extremely hypertensive. The lisinopril was discontinued and she was started on losartan 50 mg twice daily with improvement in her BP. She was continued on metoprolol 100 mg daily; this medication was not adjusted related to her heart rate trending in the 40s and 50s. (5) Systolic murmur Is this a current diagnosis for this admission?: Yes - Additional Information Resuscitation Status: Full Code Discharge Diet: Cardiac, Diabetic Discharge Activity: Activity As Tolerated, Balance Activity w/Rest Home Medications: Amlodipine Besylate [Norvasc 10 mg Tablet] 10 mg PO QAM 04/25/17 Aspirin [Ecotrin 325 mg EC Tablet] 325 mg PO [id number] 04/25/17 Atorvastatin Calcium [Lipitor 80 mg Tablet] 80 mg PO QHS 04/25/17 Cholecalciferol (Vitamin D3) [Vitamin D3] 1,000 unit PO DAILY 04/25/17 Ezetimibe [Zetia] 10 mg PO DAILY 04/25/17 Ferrous Sulfate [Feosol 325 mg Tablet] 325 mg PO BID 04/25/17 Furosemide [Lasix 40 mg Tablet] 40 mg PO QAM 04/25/17 Metformin HCl [Glucophage 500 mg Tablet] 500 mg PO BIDACBS 04/25/17 Metoprolol Succinate [Toprol XL 100 mg Tablet] 100 mg PO DAILY 04/25/17 Pantoprazole Sodium [Protonix] 40 mg PO ACBRKFST 04/25/17 Sitagliptin Phosphate [Januvia] 100 mg PO WSUPPER 04/25/17 Losartan Potassium [Cozaar 50 mg Tablet] 50 mg PO BID #60 tablet 04/26/17 History of Present Illness Patient complains of: Right-sided arm weakness and slurred speech now resolved. History of Present Illness: ALYSON GARCIA is a 77 year old female presented with right-sided arm weakness and slurred speech. She states that she took 325 ASA and after approximately 6 hours reported to the ED for evaluation. Physical Exam Vital Signs: Temp Pulse Resp BP Pulse Ox 97.4 F 53 L 16 153/51 H 99 04/26/17 11:14 04/26/17 11:14 04/26/17 11:14 04/26/17 11:14 04/26/17 11:14 Intake & Output 04/25/17 04/26/17 04/27/17 06:59 06:59 06:59 Intake Total 3 2164 355 Balance 3 2164 355 Weight 74.6 kg 74.5 kg General appearance: PRESENT: no acute distress, cooperative, well-developed, well-nourished Head exam: PRESENT: atraumatic, normocephalic Eye exam: PRESENT: EOMI, PERRLA. ABSENT: nystagmus, scleral icterus Ear exam: PRESENT: normal external ear exam Mouth exam: PRESENT: moist, tongue midline Neck exam: PRESENT: full ROM. ABSENT: carotid bruit, JVD, lymphadenopathy, thyromegaly Respiratory exam: PRESENT: clear to auscultation tenisha, symmetrical, unlabored. ABSENT: crackles, rales, rhonchi, wheezes Cardiovascular exam: PRESENT: bradycardia, RRR, systolic murmur - II/IV Pulses: PRESENT: normal radial pulses, +2 pedal pulses bilateral Vascular exam: PRESENT: normal capillary refill GI/Abdominal exam: PRESENT: normal bowel sounds, soft. ABSENT: guarding, hernia , mass, organolmegaly, tenderness Rectal exam: PRESENT: deferred Extremities exam: PRESENT: full ROM. ABSENT: calf tenderness, pedal edema Musculoskeletal exam: PRESENT: ambulatory, full ROM, normal inspection. ABSENT : tenderness Neurological exam: PRESENT: alert, awake, oriented to person, oriented to place , oriented to time, oriented to situation, CN II-XII grossly intact, normal gait. ABSENT: motor sensory deficit, aphasic Psychiatric exam: PRESENT: normal mood Skin exam: PRESENT: dry, intact, warm. ABSENT: cyanosis, jaundice, rash Results Laboratory Results: 04/25/17 04:43 04/25/17 04:43 04/24/17 19:50 Troponin I < 0.012 Impressions: Chest X-Ray 04/24/17 16:07 IMPRESSION: NO ACUTE RADIOGRAPHIC FINDING IN THE CHEST. Head CT 04/24/17 16:07 IMPRESSION: MILD CHRONIC CHANGES OF ATROPHY AND MICROVASCULAR ISCHEMIA. NO ACUTE PROCESS. Head MRI 04/25/17 05:28 IMPRESSION: MINIMAL MICROVASCULAR ISCHEMIC CHANGE. POSSIBLE TINY ACUTE LACUNAR INFARCT IN THE LEFT BASAL GANGLIA. OTHERWISE NORMAL STUDY. EVIDENCE OF ACUTE STROKE: POSSIBLE TINY ACUTE LACUNAR INFARCT IN THE LEFT BASAL GANGLIA. LEFT MCA Qualifiers PATEINT BEING DISCHARGED WITH ANY OF THE FOLLOWING DIAGNOSIS?: Stroke Stroke Pt being discharged on Anti-thrombolytic therapy?: Yes Stroke Pt being discharged on Anti-coagulation therapy?: Yes Stroke Pt being discharged on Statins?: Yes
== END 2017-04-26 13:55 | disposition home or self-care (01) ==
LOC: ER 15:45 → EH 19:30 → INTOOBSV 20:47 → UNDOADMOB 20:47 → EH 20:47 → 3W 22:00
PROVIDERS: ADMIT Internal Medicine; ATTEND Internal Medicine
DX: I63.19 Cerebral infarction due to embolism of other precerebral artery (principal); E11.9 Type 2 diabetes mellitus without complications; E78.5 Hyperlipidemia, unspecified; I10 Essential (primary) hypertension; R01.1 Cardiac murmur, unspecified; R00.1 Bradycardia, unspecified; F17.210 Nicotine dependence, cigarettes, uncomplicated; Z79.899 Other long term (current) drug therapy; Z79.84 Long term (current) use of oral hypoglycemic drugs; Z82.3 Family history of stroke; Z79.82 Long term (current) use of aspirin
CPT/HCPCS: 93005; 99285; 36415 ×2; 82553; 82962 ×2; 82550; 83690; 85025 ×2; 85652; 85610; 86140; 80048; 80053; 81001; 84484; 83036; 80061; 93306; 70551; 71010; 70450; 93010; 97163; 97167; G0378 ×4; A9270 ×15; J1644 ×3; J3490 ×5; G8978; G8979; G8980; G8987; G8988; G8989

== ENCOUNTER 2017-04-29 09:17 | Emergency (ER) | payer MEDICARE, OTHER ==
[2017-04-29] MEDS ORDERED: CLONIDINE HCL 0.1 MG TABLET PO ONE (09:32)
--- NOTE | 2017-04-29 09:35 | ER Document Report ---
ED Medical Screen (RME) - General Chief Complaint: Blood Pressure Problem Stated Complaint: BLOOD PRESSURE PROBLEM Time Seen by Provider: 04/29/17 09:25 Notes: This 77-year-old female patient was seen here on 04/24/2017 with TIA type symptoms and elevated blood pressure. Eventually was found to have a possible new left basal ganglia infarct. She returns today due to blood pressure being quite high at home this morning despite taking her medication. She also reports she has had a creamy white sputum with congested cough for the past 2 days. I have greeted and performed a rapid initial assessment of this patient. A comprehensive ED assessment and evaluation of the patient, analysis of test results and completion of the medical decision making process will be conducted by additional ED providers. TRAVEL OUTSIDE OF THE [place] IN LAST 30 DAYS: No - Related Data Allergies/Adverse Reactions: levofloxacin [From Levaquin] Allergy (Verified 04/29/17 09:23) rash morphine [Morphine] Allergy (Verified 04/29/17 09:23) Hallucinations nitrofurantoin [From Macrobid] Allergy (Verified 04/29/17 09:23) rash sulfamethoxazole [From Septra] Allergy (Verified 04/29/17 09:23) kidney pain trimethoprim [From Septra] Allergy (Verified 04/29/17 09:23) kidney pain Past Medical History - Social History Chew tobacco use (# tins/day): No Frequency of alcohol use: None Drug Abuse: None - Past Medical History Cardiac Medical History: Reports: Hx Hypercholesterolemia, Hx Hypertension Endocrine Medical History: Reports: Hx Diabetes Mellitus Type 2 Renal/ Medical History: Denies: Hx Peritoneal Dialysis Psychiatric Medical History: Reports: Hx Depression Past Surgical History: Reports: Hx Section, Hx Tonsillectomy - Immunizations Hx Diphtheria, Pertussis, Tetanus Vaccination: Yes - 2011 Physical Exam - Vital signs Vitals: Temp Pulse Resp BP Pulse Ox 97.7 F 51 L 18 188/52 H 96 04/29/17 09:19 04/29/17 09:19 04/29/17 09:19 04/29/17 09:04/29/17 09:19 Course - Vital Signs Vital signs: Temp Pulse Resp BP Pulse Ox 97.7 F 51 L 18 188/52 H 96 04/29/17 09:19 04/29/17 09:19 04/29/17 09:19 04/29/17 09:19 04/29/17 09:19
[2017-04-29 10:22] LABS: ABSOLUTE BASOPHILS # (AUTO) 0.1 10^3/uL (0.0-0.2); ABSOLUTE EOSINOPHILS # (AUTO) 0.2 10^3/uL (0.0-0.6); ABSOLUTE LYMPHOCYTES (AUTO) 1.9 10^3/uL (0.5-4.7); ABSOLUTE MONOCYTES (AUTO) 0.7 10^3/uL (0.1-1.4); ABSOLUTE NEUT (AUTO) 4.9 10^3/uL (1.7-8.2); BASOPHILS % (AUTO) 1.3 % (0-2); EOSINOPHILS % (AUTO) 2.7 % (0-6); HEMATOCRIT 39.3 % (36.0-47.0); HEMOGLOBIN 13.2 g/dL (12.0-15.5); HGB HCT DIFFERENCE 0.3; MEAN CORPUSCULAR HGB CONC 33.5 g/dL (32.0-36.0); MEAN CORPUSCULAR VOLUME 78 fl (80-97); MONOCYTES % (AUTO) 8.7 % (3-13); RED BLOOD COUNT 5.07 10^6/uL (3.72-5.28); RED CELL DISTRIBUTION WIDTH 15.6 % (11.5-14.0); SEGMENTED NEUTROPHILS % (AUTO) 63.3 % (42-78); WHITE BLOOD COUNT 7.8 10^3/uL (4.0-10.5)
--- NOTE | 2017-04-29 10:34 | RADIOLOGY REPORT (SQ) ---
EXAM DESCRIPTION: CHEST PA/LAT COMPLETED DATE/TIME: 04/29/2017 10:14 am REASON FOR STUDY: productive cough COMPARISON: AP chest 04/24/2017 EXAM PARAMETERS: NUMBER OF VIEWS: two views TECHNIQUE: Digital Frontal and Lateral radiographic views of the chest acquired. RADIATION DOSE: NA LIMITATIONS: none FINDINGS: LUNGS AND PLEURA: No opacities, masses or pneumothorax. No pleural effusion. MEDIASTINUM AND HILAR STRUCTURES: No masses or contour abnormalities. HEART AND VASCULAR STRUCTURES: Heart normal size. No evidence for failure. BONES: No acute findings. HARDWARE: None in the chest. OTHER: No other significant finding. IMPRESSION: NO SIGNIFICANT RADIOGRAPHIC FINDING IN THE CHEST. TECHNICAL DOCUMENTATION: JOB ID: [id number] [employer]- All Rights Reserved
[2017-04-29 10:44] LABS: APPEARANCE,URINE CLEAR; BILIRUBIN,URINE NEGATIVE (NEGATIVE); GLUCOSE, URINE NEGATIVE (NEGATIVE); KETONES,URINE NEGATIVE (NEGATIVE); LEUKOCYTE ESTERASE,URINE NEGATIVE (NEGATIVE); NITRITE,URINE NEGATIVE (NEGATIVE); PROTEIN,URINE 30 mg/dL (NEGATIVE); URINE SPECIFIC GRAVITY 1.005; UROBILINOGEN,URINE NEGATIVE mg/dL (<2.0)
[2017-04-29 10:45] LABS: ALANINE AMINOTRANSFERASE 39 U/L (9-52); ALBUMIN 4.3 g/dL (3.5-5.0); ALKALINE PHOSPHATASE 113 U/L (38-126); ANION GAP 13 (5-19); ASPARTATE AMINO TRANSFERASE 33 U/L (14-36); BILIRUBIN,DIRECT 0.3 mg/dL (0.0-0.4); BILIRUBIN,TOTAL 0.5 mg/dL (0.2-1.3); BLOOD UREA NITROGEN 24 mg/dL (7-20); CALCIUM 10.5 mg/dL (8.4-10.2); CARBON DIOXIDE 27 mmol/L (22-30); CHLORIDE 101 mmol/L (98-107); CREATINE KINASE 50 U/L (30-135); CREATININE RESULT 1.33 mg/dL (0.52-1.25); GLUCOSE 139 mg/dL (75-110); SODIUM 141.4 mmol/L (137-145); TOTAL PROTEIN 7.7 g/dL (6.3-8.2)
--- NOTE | 2017-04-29 11:41 | ER Document Report ---
ED General - General Chief Complaint: Blood Pressure Problem Stated Complaint: BLOOD PRESSURE PROBLEM Time Seen by Provider: 04/29/17 09:25 TRAVEL OUTSIDE OF THE [place] IN LAST 30 DAYS: No - HPI Patient complains to provider of: Elevated blood pressure Notes: Patient is coming in for evaluation of elevated blood pressure. Patient was recently admitted to the hospital after having TIA symptoms and found to actually have a linear infarcts acute on chronic. Patient was discharged home on new blood pressure medication after obtaining adequate blood pressure control. Patient states took her blood pressure medication this morning and took her blood pressure states that her systolic was greater than 200 was concerned the patient came in for further evaluation. Patient denies any fevers chills nausea vomiting chest pain abdominal pain. Patient denies any nausea or vomiting. Patient was given a dose of clonidine in triage. Upon my evaluation patient is resting comfortably. Patient states continues to have some right leg pain since she has been diagnosed with a stroke otherwise patient moving all 4 extremities no other complaints other than the blood pressure. - Related Data Allergies/Adverse Reactions: levofloxacin [From Levaquin] Allergy (Verified 04/29/17 09:23) rash morphine [Morphine] Allergy (Verified 04/29/17 09:23) Hallucinations nitrofurantoin [From Macrobid] Allergy (Verified 04/29/17 09:23) rash sulfamethoxazole [From Septra] Allergy (Verified 04/29/17 09:23) kidney pain trimethoprim [From Septra] Allergy (Verified 04/29/17 09:23) kidney pain Past Medical History - Social History Smoking Status: Former Smoker Chew tobacco use (# tins/day): No Frequency of alcohol use: None Drug Abuse: None Family History: None, CVA - Past Medical History Cardiac Medical History: Reports: Hx Hypercholesterolemia, Hx Hypertension Endocrine Medical History: Reports: Hx Diabetes Mellitus Type 2 Renal/ Medical History: Denies: Hx Peritoneal Dialysis Psychiatric Medical History: Reports: Hx Depression Past Surgical History: Reports: Hx Section, Hx Tonsillectomy - Immunizations Hx Diphtheria, Pertussis, Tetanus Vaccination: Yes - 2011 Hx Pneumococcal Vaccination: 08/09/11 Review of Systems - Review of Systems Constitutional: Other - Hypertension EENT: No symptoms reported Cardiovascular: No symptoms reported Respiratory: No symptoms reported Gastrointestinal: No symptoms reported Genitourinary: No symptoms reported Female Genitourinary: No symptoms reported Musculoskeletal: No symptoms reported Skin: No symptoms reported Hematologic/Lymphatic: No symptoms reported Neurological/Psychological: No symptoms reported -: Yes All other systems reviewed and negative Physical Exam - Vital signs Vitals: Temp Pulse Resp BP Pulse Ox 97.7 F 51 L 18 188/52 H 96 04/29/17 09:19 04/29/17 09:19 04/29/17 09:19 04/29/17 09:19 04/29/17 09:19 Interpretation: Normal - General General appearance: Appears well, Alert - HEENT Head: Normocephalic, Atraumatic Eyes: Normal Pupils: PERRL - Respiratory Respiratory status: No respiratory distress Chest status: Nontender Breath sounds: Normal Chest palpation: Normal - Cardiovascular Rhythm: Regular, Bradycardia Heart sounds: Normal auscultation Murmur: No - Abdominal Inspection: Normal Distension: No distension Bowel sounds: Normal Tenderness: Nontender Organomegaly: No organomegaly - Back Back: Normal, Nontender - Extremities General upper extremity: Normal inspection, Nontender, Normal color, Normal ROM , Normal temperature General lower extremity: Normal inspection, Nontender, Normal color, Normal ROM , Normal temperature, Normal weight bearing. No: Mar's sign - Neurological Neuro grossly intact: Yes Cognition: Normal Orientation: AAOx4 [place] Coma Scale Eye Opening: Spontaneous [place] Coma Scale Verbal: Oriented Baljit Coma Scale Motor: Obeys Commands [place] Coma Scale Total: 15 Speech: Normal Motor strength normal: LUE, RUE, LLE, RLE Sensory: Normal - Psychological Associated symptoms: Normal affect, Normal mood - Skin Skin Temperature: Warm Skin Moisture: Dry Skin Color: Normal Course - Re-evaluation Re-evalutation: 04/29/17 14:40 Patient lab work does show a slight increase in the patient's creatinine patient does states she has not drink enough water since she been discharged from the hospital. Upon my last evaluation patient is eating sonic without difficulty. Patient does complain of some right upper extremity pain reexamination still shows good inspector welded parts strength equal equal push and pull. Unclear if this new complaint at time of discharge. Reviewed patient's blood pressure medication shows she takes most of her medications in the a.m. I instructed the patient to change her amlodipine to nighttime to continue the other medications as prescribed patient stated understanding patient also stated understanding that her blood pressure will be elevated tomorrow morning until she actually changes to medications for approximately 48 hours - Vital Signs Vital signs: Temp Pulse Resp BP Pulse Ox 97.7 F 51 L 14 149/49 H 97 04/29/17 09:19 04/29/17 09:19 04/29/17 11:44 04/29/17 11:44 04/29/17 11:44 - Laboratory Result Diagrams: 04/29/17 09:40 04/29/17 09:40 Laboratory results interpreted by me: 04/29/17 04/29/17 04/29/17 09:40 09:40 10:18 MCV 78 L MCH 26.0 L RDW 15.6 H BUN 24 H Creatinine 1.33 H Est GFR ( Amer) 47 L Est GFR (Non-Af Amer) 39 L Glucose 139 H Calcium 10.5 H Urine Protein 30 H Discharge - Discharge Clinical Impression: High blood pressure Qualifiers: Hypertension type: unspecified Qualified Code(s): I10 - Essential (primary) hypertension Condition: Good Disposition: HOME, SELF-CARE Instructions: High Blood Pressure ([facility]) Additional Instructions: Tomorrow morning take all your medications as prescribed except for your Norvasc Start taking your Norvasc at night. This will hopefully give you better control of your blood pressure throughout the entire day. Please continue to record your blood pressures at the same time each morning and take your medications at the same time each morning and at night. Return to the ER symptoms worsen Referrals: MARGIE GARNETT MD [Primary Care Provider] - Follow up as needed
[2017-04-29 11:54] VITALS: BP 149/49
--- NOTE | 2017-04-29 19:37 | EKG REPORT ---
SEVERITY:- ABNORMAL ECG - SINUS RHYTHM PROBABLE LEFT ATRIAL ABNORMALITY NONSPECIFIC ANTEROLAT ST-T CHANGES : Confirmed by: Abiel Bond MD 29-Apr-2017 19:36:27
== END 2017-04-29 11:54 | disposition home or self-care (01) ==
LOC: ER 09:17
DX: I10 Essential (primary) hypertension (principal); M79.603 Pain in arm, unspecified; R00.1 Bradycardia, unspecified; M79.604 Pain in right leg; E11.9 Type 2 diabetes mellitus without complications; Z86.73 Personal history of transient ischemic attack (TIA), and cerebral infarction without residual deficits; Z88.1 Allergy status to other antibiotic agents; Z88.5 Allergy status to narcotic agent; Z87.891 Personal history of nicotine dependence
CPT/HCPCS: 93005; 99284; 36415; 87040; 82550; 85025; 80053; 81001; 84484; 71020; 93010; A9270

== ENCOUNTER 2017-05-01 21:45 | Emergency (ER) | payer MEDICARE, OTHER ==
[2017-05-01] MEDS ORDERED: HYDRALAZINE HCL 25 MG TABLET PO ONE (22:47)
--- NOTE | 2017-05-01 22:50 | ER Document Report ---
ED Medical Screen (RME) - General Chief Complaint: Blood Pressure Problem Stated Complaint: BLOOD PRESSURE ISSUE Time Seen by Provider: 05/01/17 22:46 Mode of Arrival: Wheelchair Information source: Patient Notes: Patient has been admitted recently for blood pressure issues. Patient cannot seem to get her blood pressure under control with losartan, Norvasc and metoprolol. Patient denies any headache, blurred vision, chest pain or other symptoms. Patient took all of her blood pressure medication today and still had a blood pressure of 200/100 at home before coming in today. She states that her blood pressure just keeps rising instead of falling. TRAVEL OUTSIDE OF THE [place] IN LAST 30 DAYS: No - Related Data Allergies/Adverse Reactions: levofloxacin [From Levaquin] Allergy (Verified 05/01/17 22:39) rash morphine [Morphine] Allergy (Verified 05/01/17 22:39) Hallucinations nitrofurantoin [From Macrobid] Allergy (Verified 05/01/17 22:39) rash sulfamethoxazole [From Septra] Allergy (Verified 05/01/17 22:39) kidney pain trimethoprim [From Septra] Allergy (Verified 05/01/17 22:39) kidney pain Past Medical History - General Information source: Patient - Past Medical History Cardiac Medical History: Reports: Hx Hypercholesterolemia, Hx Hypertension Endocrine Medical History: Reports: Hx Diabetes Mellitus Type 2 Renal/ Medical History: Denies: Hx Peritoneal Dialysis Psychiatric Medical History: Reports: Hx Depression Past Surgical History: Reports: Hx Section, Hx Tonsillectomy - Immunizations Hx Diphtheria, Pertussis, Tetanus Vaccination: Yes - 2011 Review of Systems - Review of Systems Cardiovascular: See HPI Physical Exam - Vital signs Vitals: Pulse Resp BP Pulse Ox 49 L 20 206/102 H 95 05/01/17 22:22 05/01/17 22:22 05/01/17 22:22 05/01/17 22:22 - Notes Notes: PHYSICAL EXAMINATION: GENERAL: Well-appearing and in no acute distress. HEART: Regular rate and rhythm without murmurs Course - Vital Signs Vital signs: Temp Pulse Resp BP Pulse Ox 49 L 20 206/102 H 95 05/01/17 22:22 05/01/17 22:22 05/01/17 22:22 05/01/17 22:22
--- NOTE | 2017-05-01 23:23 | ER Document Report ---
ED Blood Pressure Problem - General Mode of Arrival: Wheelchair Information source: Patient, Relative - son TRAVEL OUTSIDE OF THE [place] IN LAST 30 DAYS: No - HPI Patient complains to provider of: High blood pressure Similar symptoms previously: Yes Recently seen / treated by doctor: Yes - 04/29/2017 [facility] ED, 04/24/2017 Admit [facility] <ALINE GENTILE - Last Filed: 05/01/17 23:55> <MAURO DAVALOS - Last Filed: 05/02/17 06:30> <GUTIERREZ ALAS - Last Filed: 05/02/17 07:42> - General Chief Complaint: Blood Pressure Problem Stated Complaint: BLOOD PRESSURE ISSUE Time Seen by Provider: 05/01/17 22:46 Notes: Patient is a 77 year old female presenting to the emergency department for hypertension. Patient states that when she took her blood pressure tonight it was 173/69 at 19:45 and she took Losartan 50 mg and Norvasc 10 mg at 19:45. At 20:45 the patient's blood pressure was 207/75 and it kept rising so she came to the ED. Patient was seen on 04/29/2017 for the same and was told to take her Norvasc 10 mg at night instead of in the morning to possibly help control her hypertension. 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 During this admission the patient was taken off her Lisinopril and was started on Losartan 50 x2 per day. Patient daily takes Lasix 40 mg, Toprol XL 100 mg, and Losartan 50 mg in the morning around 08:00. Patient takes Losartan 50 mg and Norvasc 10 mg around 20:00 at night daily. PCP is Dr. Vu in [place]. Patient states she did have an ultrasound of her kidneys about 6 months ago because she was having frequent UTIs; patient does not know if Dr. Vu was looking at her blood vessels to search for a possible reason for her hypertension. Patient has not seen Dr. Vu since being admitted for her TIA or since she has started having difficulty controlling her blood pressure. ( ALINE GENTILE) - Related Data Allergies/Adverse Reactions: levofloxacin [From Levaquin] Allergy (Verified 05/01/17 22:39) rash morphine [Morphine] Allergy (Verified 05/01/17 22:39) Hallucinations nitrofurantoin [From Macrobid] Allergy (Verified 05/01/17 22:39) rash sulfamethoxazole [From Septra] Allergy (Verified 05/01/17 22:39) kidney pain trimethoprim [From Septra] Allergy (Verified 05/01/17 22:39) kidney pain Past Medical History - General Information source: Patient - Social History Smoking Status: Current Every Day Smoker Cigarette use (# per day): Yes - 1 ppd Chew tobacco use (# tins/day): No Smoking Education Provided: No Frequency of alcohol use: None Drug Abuse: None Family History: None, CVA Patient has suicidal ideation: No Patient has homicidal ideation: No - Past Medical History Cardiac Medical History: Reports: Hx Hypercholesterolemia, Hx Hypertension Neurological Medical History: Reports: Other - small ganglial infarct found after admission for TIA Endocrine Medical History: Reports: Hx Diabetes Mellitus Type 2 Psychiatric Medical History: Reports: Hx Depression Past Surgical History: Reports: Hx Section, Hx Tonsillectomy - Immunizations Hx Diphtheria, Pertussis, Tetanus Vaccination: Yes - 2011 Hx Pneumococcal Vaccination: 08/09/11 <ALINE GENTILE - Last Filed: 05/01/17 23:55> Review of Systems - Review of Systems Constitutional: See HPI, Other - hypertension EENT: No symptoms reported. denies: Blurred vision Cardiovascular: No symptoms reported. denies: Dizziness Respiratory: No symptoms reported Gastrointestinal: No symptoms reported. denies: Nausea Genitourinary: No symptoms reported Female Genitourinary: No symptoms reported Musculoskeletal: No symptoms reported Skin: No symptoms reported Hematologic/Lymphatic: No symptoms reported Neurological/Psychological: No symptoms reported. denies: Headaches -: Yes All other systems reviewed and negative <ALINE GENTILE - Last Filed: 05/01/17 23:55> Physical Exam - Vital signs Interpretation: Hypertensive <ALINE GENTILE - Last Filed: 05/01/17 23:55> <MAURO DAVALOS - Last Filed: 05/02/17 06:30> <GUTIERREZ ALAS - Last Filed: 05/02/17 07:42> - Vital signs Vitals: Pulse Resp BP Pulse Ox 49 L 20 206/102 H 95 05/01/17 22:22 05/01/17 22:22 05/01/17 22:22 05/01/17 22:22 Notes: During exam blood pressure was 248/79 (05/01/2017 23:35) (ALINE GENTILE) - Notes Notes: GENERAL: Alert, friendly, pleasant, interacts well. Mild distress. HEAD: Normocephalic, atraumatic. EYES: Appear normal. Pupils equal, round, and reactive to light. ENT: Moist mucus membranes, tongue midline. NECK: Full range of motion. Supple. Trachea midline. LUNGS: Clear to auscultation bilaterally, no wheezes, rales, or rhonchi. No respiratory distress. HEART: Regular rate and rhythm. No murmurs, gallops, or rubs. ABDOMEN: Soft, non-tender. Non-distended. Normal bowel sounds. EXTREMITIES: Moves all 4 extremities spontaneously. Normal strength. No edema. NEUROLOGICAL: Alert and oriented x3. Normal speech. No focal neurological deficits. GCS 15. PSYCH: Normal affect, normal mood. SKIN: Warm, dry, normal turgor. No rashes or lesions noted. (ALINE GENTILE) Course <ALINE GENTILE - Last Filed: 05/01/17 23:55> - Transfer of Care Care transferred to following provider: Dr. Alas <MAURO DAVALOS - Last Filed: 05/02/17 06:30> <GUTIERREZ ALAS - Last Filed: 05/02/17 07:42> - Re-evaluation Re-evalutation: 05/02/17 04:47 The patient's blood pressure has fluctuated between about 185 and 205 all night long despite receiving medications. At this time her pressure is now down to 130/50 with a heart rate of 47. I am concerned about overshooting and we will watch her for some time and possibly not take the morning blood pressure medication dose. Heart rate of 47 is the range she has been in all night, including prior to giving her any medication. The patient is sound asleep and snoring at this time, she is usually quite awake and hyper-animated. Having finally fallen asleep is probably contributing to the drop in the pressure also. 05/02/17 05:18 Patient is patent pressure dropped to 118 systolic, so I woke her up to speak with her a while, and then recheck the pressure and it came up to 141/51. I confirmed this pressure by palpating her pulse while the cuff was reading the pressure. We will watch her for another 30 minutes, and if the pressure continues to stay at that level her trend up and she will be discharged home to follow-up with her primary care provider today. 05/02/17 05:49 The patient's blood pressure has begun to trend back down again, it was recently 117 systolic, now it is down to 89 systolic. She does feel fine. Due to the pressure trending downward again, I will have the nurse give her a liter of normal saline and reevaluate. (MAURO DAVALOS) 05/02/17 07:39 Patient's blood pressure continues to be quite labile, at present is 162/53, over the past hour and a half it has been as high as 175 and as low as 143 SBP. She is asymptomatic, she is not having any only any ill effects from this labile hypertension. Recommend the patient follow-up with her plant tech today. Patient states she lives 18 miles from his office so she will drive to his office today. As the patient is asymptomatic despite a wide range of blood pressures patient will be discharged home without any further intervention. ( GUTIERREZ ALAS) - Vital Signs Vital signs: Temp Pulse Resp BP Pulse Ox 49 L 11 L 148/47 H 95 05/01/17 22:22 05/02/17 06:31 05/02/17 06:31 05/02/17 06:31 - Transfer of Care Notes: 05/02/17 06:31 The patient will be observed for the next hour or so to ensure that the blood pressure stays in the 140 range where it is presently. If there are no further issues, she can be discharged home to follow-up with her primary care provider today. (MAURO DAVALOS) Discharge <ALINE GENTILE - Last Filed: 05/01/17 23:55> <MAURO DAVALOS - Last Filed: 05/02/17 06:30> <GUTIERREZ ALAS - Last Filed: 05/02/17 07:42> - Discharge Clinical Impression: Poorly-controlled hypertension Condition: Stable Additional Instructions: I would like you to see your primary care physician today or tomorrow. Please take your regular morning blood pressure medications as prescribed. Your blood pressure is quite labile, this means that it goes rather high and rather low with minimal intervention. It is very important that your primary care physician be the one who adjusts your medication and adjust it slowly. Referrals: MARGIE GARNETT MD [Primary Care Provider] - Follow up tomorrow Scribe Attestation: 05/02/17 00:21 I personally performed the services described in the documentation, reviewed and edited the documentation which was dictated to the scribe in my presence, and it accurately records my words and actions. (MAURO DAVALOS) Scribe Documentation - Scribe Written by Cisco:: Cisco Velez 05/02/2017 12:15 acting as scribe for :: Moises <ALINE GENTILE - Last Filed: 05/01/17 23:55>
[2017-05-02] MEDS ORDERED: CLONIDINE HCL 0.2 MG TABLET PO ONE (00:54)
[2017-05-02] MEDS ORDERED: CLONIDINE HCL 0.1 MG TABLET PO ONE ×2 (01:13→03:06)
[2017-05-02] MEDS ORDERED: HYDRALAZINE HCL 25 MG TABLET PO ONE (03:06)
[2017-05-02] MEDS ORDERED: NORMAL SALINE 1000 ML 1,000 ML IV ONE ×2 (05:49→06:16)
[2017-05-02 07:55] VITALS: BP 147/47
== END 2017-05-02 08:04 | disposition home or self-care (01) ==
LOC: ER 21:45
DX: I10 Essential (primary) hypertension (principal); F17.210 Nicotine dependence, cigarettes, uncomplicated; E78.00 Pure hypercholesterolemia, unspecified; E11.9 Type 2 diabetes mellitus without complications; Z86.73 Personal history of transient ischemic attack (TIA), and cerebral infarction without residual deficits; Z88.6 Allergy status to analgesic agent
CPT/HCPCS: 99283; 96360; A9270 ×3; J7030

== ENCOUNTER 2017-07-03 18:59 | Emergency (ER) | payer MEDICARE, OTHER ==
--- NOTE | 2017-07-03 19:28 | ER Document Report ---
ED Medical Screen (RME) - General Chief Complaint: Neck Problem Stated Complaint: NECK PAIN Time Seen by Provider: 07/03/17 19:26 Notes: Right carotid artery endarterectomy done on the , 5 days ago. She noticed in the past day that the surgery site seems to be swollen and large and there is a lump in the suture site. Family says there has been no bleeding from the site and no drainage of any fluid or pus. The surgical site appears to be clean and there is no erythema. I cannot actually palpate a pulse but I can hear a bruit both above and below the incision site. Her surgery was performed at [facility] in [place]. Patient says that she did not call her surgeon for advice because she knew he was not in the office at this time. TRAVEL OUTSIDE OF THE [place] IN LAST 30 DAYS: No - Related Data Allergies/Adverse Reactions: levofloxacin [From Levaquin] Allergy (Verified 07/03/17 19:05) rash morphine [Morphine] Allergy (Verified 07/03/17 19:05) Hallucinations nitrofurantoin [From Macrobid] Allergy (Verified 07/03/17 19:05) rash sulfamethoxazole [From Septra] Allergy (Verified 07/03/17 19:05) kidney pain trimethoprim [From Septra] Allergy (Verified 07/03/17 19:05) kidney pain Past Medical History - Social History Frequency of alcohol use: None Drug Abuse: None - Past Medical History Cardiac Medical History: Reports: Hx Hypercholesterolemia, Hx Hypertension Endocrine Medical History: Reports: Hx Diabetes Mellitus Type 2 Renal/ Medical History: Denies: Hx Peritoneal Dialysis Psychiatric Medical History: Reports: Hx Depression Past Surgical History: Reports: Hx Section, Hx Tonsillectomy - Immunizations Hx Diphtheria, Pertussis, Tetanus Vaccination: Yes - 2011 Physical Exam - Vital signs Vitals: Temp Pulse Resp BP Pulse Ox 98.8 F 61 16 169/69 H 97 07/03/17 19:05 07/03/17 19:05 07/03/17 19:05 07/03/17 19:05 07/03/17 19:05 Course - Vital Signs Vital signs: Temp Pulse Resp BP Pulse Ox 98.8 F 61 16 169/69 H 97 07/03/17 19:05 07/03/17 19:05 07/03/17 19:05 07/03/17 19:05 07/03/17 19:05
--- NOTE | 2017-07-03 21:03 | ER Document Report ---
ED General - General Chief Complaint: Neck Problem Stated Complaint: NECK PAIN Time Seen by Provider: 07/03/17 19:26 Mode of Arrival: Ambulatory Information source: Patient, Relative Notes: 77 yr old female with recent R side endarterectomy on 06/29 presents with complaints of swelling on the right side. pt denies any pain unless she turns her neck TRAVEL OUTSIDE OF THE [place] IN LAST 30 DAYS: No - HPI Onset: Last week Onset/Duration: Persistent, Worse Quality of pain: Achy Severity: Mild Pain Level: 1 Associated symptoms: None Exacerbated by: Denies Relieved by: Denies Similar symptoms previously: No Recently seen / treated by doctor: No - Related Data Allergies/Adverse Reactions: levofloxacin [From Levaquin] Allergy (Verified 07/03/17 19:05) rash morphine [Morphine] Allergy (Verified 07/03/17 19:05) Hallucinations nitrofurantoin [From Macrobid] Allergy (Verified 07/03/17 19:05) rash sulfamethoxazole [From Septra] Allergy (Verified 07/03/17 19:05) kidney pain trimethoprim [From Septra] Allergy (Verified 07/03/17 19:05) kidney pain Past Medical History - Social History Smoking Status: Current Some Day Smoker Cigarette use (# per day): Yes Chew tobacco use (# tins/day): No Smoking Education Provided: No Frequency of alcohol use: None Drug Abuse: None Family History: None, CVA Patient has suicidal ideation: No Patient has homicidal ideation: No - Past Medical History Cardiac Medical History: Reports: Hx Hypercholesterolemia, Hx Hypertension Endocrine Medical History: Reports: Hx Diabetes Mellitus Type 2 Renal/ Medical History: Denies: Hx Peritoneal Dialysis Psychiatric Medical History: Reports: Hx Depression Past Surgical History: Reports: Hx Section, Hx Tonsillectomy - Immunizations Hx Diphtheria, Pertussis, Tetanus Vaccination: Yes - 2011 Hx Pneumococcal Vaccination: 08/09/11 Review of Systems - Review of Systems Notes: REVIEW OF SYSTEMS: CONSTITUTIONAL : Denies fever, chills, or sweats. Denies recent illness. EENT: right sided neck swelling CARDIOVASCULAR: Denies chest pain. Denies palpitations or racing or irregular heart beat. Denies ankle edema. RESPIRATORY: Denies cough, cold, or chest congestion. Denies shortness of breath, difficulty breathing, or wheezing. GASTROINTESTINAL: Denies abdominal pain or distention. Denies nausea, vomiting , or diarrhea. Denies blood in vomitus, stools, or per rectum. Denies black, tarry stools. Denies constipation. GENITOURINARY: Denies difficulty urinating, painful urination, burning, frequency, blood in urine, or discharge. FEMALE GENITOURINARY: Denies vaginal bleeding, heavy or abnormal periods, irregular periods. Denies vaginal discharge or odor. MUSCULOSKELETAL: Denies back or neck pain or stiffness. Denies joint pain or swelling. SKIN: Denies rash, lesions or sores. HEMATOLOGIC : Denies easy bruising or bleeding. LYMPHATIC: Denies swollen, enlarged glands. NEUROLOGICAL: Denies confusion or altered mental status. Denies passing out or loss of consciousness. Denies dizziness or lightheadedness. Denies headache. Denies weakness or paralysis or loss of use of either side. Denies problems with gait or speech. Denies sensory loss, numbness, or tingling. Denies seizures. PSYCHIATRIC: Denies anxiety or stress. Denies depression, suicidal ideation, or homicidal ideation. ALL OTHER SYSTEMS REVIEWED AND NEGATIVE. PHYSICAL EXAMINATION: GENERAL: Well-appearing, well-nourished and in no acute distress. HEAD: Atraumatic, normocephalic. EYES: Pupils equal round and reactive to light, extraocular movements intact, conjunctiva are normal. ENT: Nares patent, oropharynx clear without exudates. Moist mucous membranes. NECK:swelling of the right neck concerning for pseudoaneurysm LUNGS: Breath sounds clear to auscultation bilaterally and equal. No wheezes rales or rhonchi. HEART: Regular rate and rhythm without murmurs ABDOMEN: Soft, nontender, nondistended abdomen. No guarding, no rebound. No masses appreciated. Female : deferred Musculoskeletal: Normal range of motion, no pitting or edema. No cyanosis. NEUROLOGICAL: Cranial nerves grossly intact. Normal speech, normal gait. Normal sensory, motor exams PSYCH: Normal mood, normal affect. SKIN: Warm, Dry, normal turgor, no rashes or lesions noted. Dictation was performed using [employer] recognition software Physical Exam - Vital signs Vitals: Temp Pulse Resp BP Pulse Ox 98.8 F 61 16 169/69 H 97 07/03/17 19:05 07/03/17 19:05 07/03/17 19:05 07/03/17 19:05 07/03/17 19:05 Course - Re-evaluation Re-evalutation: 07/03/17 21:03 Ultrasound called in to evaluate this for possible pseudoaneurysm 07/03/17 22:44 Dr Rangel was contacted regarding results which note a hematoma otherwise no pseudoaneurysm is noted. Patient is stable for discharge. Very strict return precautions have been provided to the family and they are very happy with this plan 07/04/17 01:39 After performing a Medical Screening Examination, I estimate there is LOW risk for CENTRAL CORD SYNDROME, EPIDURAL MASS LESION, PSEUDOANEURYSM, SEVERE SPINAL STENOSIS, ARTERIAL DISSECTION, MENINGITIS, or ACUTE CORONARY SYNDROME, thus I consider the discharge disposition reasonable. I have reevaluated this patient multiple times and no significant life threatening changes are noted. The patient and I have discussed the diagnosis and risks, and we agree with discharging home to follow-up on an outpatient basis with the understanding that symptoms and presentations can change. We also discussed returning to the Emergency Department immediately if new or worsening symptoms occur. We have discussed the symptoms which are most concerning (e.g., saddle anesthesia, urinary or bowel incontinence or retention, changing or worsening pain) that necessitate immediate return. - Vital Signs Vital signs: Temp Pulse Resp BP Pulse Ox 98.9 F 61 17 175/75 H 98 07/03/17 23:09 07/03/17 19:05 07/03/17 23:09 07/03/17 23:09 07/03/17 23:09 - Laboratory Result Diagrams: 07/03/17 21:34 07/03/17 21:34 Laboratory results interpreted by me: 07/03/17 07/03/17 21:34 21:34 Hgb 11.4 L Hct 33.8 L RDW 20.3 H Est GFR (Non-Af Amer) 53 L Glucose 167 H - Diagnostic Test Radiology reviewed: Image reviewed, Reports reviewed Discharge - Discharge Clinical Impression: Hematoma of neck Qualifiers: Encounter type: initial encounter Qualified Code(s): S10.93XA - Contusion of unspecified part of neck, initial encounter Condition: Stable Disposition: HOME, SELF-CARE Additional Instructions: Please follow-up with your surgeon for further evaluation care or return immediately if there are any other concerns
[2017-07-03 21:45] LABS: ABSOLUTE BASOPHILS # (AUTO) 0.1 10^3/uL (0.0-0.2); ABSOLUTE EOSINOPHILS # (AUTO) 0.1 10^3/uL (0.0-0.6); ABSOLUTE LYMPHOCYTES (AUTO) 1.6 10^3/uL (0.5-4.7); ABSOLUTE MONOCYTES (AUTO) 0.7 10^3/uL (0.1-1.4); ABSOLUTE NEUT (AUTO) 4.5 10^3/uL (1.7-8.2); BASOPHILS % (AUTO) 1.3 % (0-2); EOSINOPHILS % (AUTO) 1.4 % (0-6); HEMATOCRIT 33.8 % (36.0-47.0); HEMOGLOBIN 11.4 g/dL (12.0-15.5); HGB HCT DIFFERENCE 0.4; LYMPHOCYTES % (AUTO) 22.8 % (13-45); MEAN CORPUSCULAR HEMOGLOBIN 29.7 pg (27.0-33.4); MEAN CORPUSCULAR HGB CONC 33.6 g/dL (32.0-36.0); MEAN CORPUSCULAR VOLUME 89 fl (80-97); MONOCYTES % (AUTO) 9.7 % (3-13); RED BLOOD COUNT 3.82 10^6/uL (3.72-5.28); RED CELL DISTRIBUTION WIDTH 20.3 % (11.5-14.0); SEGMENTED NEUTROPHILS % (AUTO) 64.8 % (42-78)
--- NOTE | 2017-07-03 22:05 | RADIOLOGY REPORT (SQ) ---
EXAM DESCRIPTION: CAROTID DOPPLER COMPLETED DATE/TIME: 07/03/2017 9:48 pm REASON FOR STUDY: right sided post carotid endarterectomy COMPARISON: None. TECHNIQUE: Grayscale ultrasound, Doppler velocity and spectra, and color Doppler images acquired of the extra-cranial carotid and vertebral arteries. Images stored on PACS. LIMITATIONS: None. FINDINGS: RIGHT CAROTID CCA Velocities: Within normal limits. ICA Velocities Peak systolic 1.2 m/s. End diastolic 0.2 6 m/s. Proximal ICA/CCA peak systolic ratio 1.9. Hypoechoic tissue along the distal common carotid, partially circumferential. This measures up to 2. 5 cm maximally. No luminal compromise. Nonvascular appearance. Probable hematoma. No evidence of overt pseudoaneurysm. LEFT CAROTID CCA Velocities: Within normal limits. ICA Velocities Peak systolic 2.5 m/s. End diastolic 0.2 2 m/s. Proximal ICA/CCA peak systolic ratio 2.5. Mild heterogeneous bulb and proximal ICA plaque. 50- 69% stenosis. VERTEBRAL ARTERIES: Antegrade flow. Normal waveforms. SUBCLAVIAN ARTERIES: No finding. OTHER: No other significant finding. IMPRESSION: 1. Recently status post right endarterectomy. There is hypoechoic nonvascular tissue al alirio the common carotid which appears to be postoperative hematoma. No evidence of pseudoaneurysm or right stenosis. 2. 50- 69% left internal carotid stenosis. COMMENT: Quality ID #[id number]: Velocity criteria are extrapolated from the diameter data as defined by t he Society of Radiologists in Ultrasound Consensus Conference. Radiology 2003: 229; 340-346. TECHNICAL DOCUMENTATION: JOB ID: [id number] [employer]- All Rights Reserved
[2017-07-03 22:07] LABS: ALANINE AMINOTRANSFERASE 32 U/L (9-52); ALBUMIN 3.8 g/dL (3.5-5.0); ALKALINE PHOSPHATASE 114 U/L (38-126); ANION GAP 11 (5-19); ASPARTATE AMINO TRANSFERASE 21 U/L (14-36); BILIRUBIN,DIRECT 0.4 mg/dL (0.0-0.4); BILIRUBIN,TOTAL 0.4 mg/dL (0.2-1.3); BLOOD UREA NITROGEN 12 mg/dL (7-20); CALCIUM 9.4 mg/dL (8.4-10.2); CARBON DIOXIDE 26 mmol/L (22-30); CHLORIDE 102 mmol/L (98-107); CREATININE RESULT 1.01 mg/dL (0.52-1.25); GLUCOSE 167 mg/dL (75-110); TOTAL PROTEIN 6.7 g/dL (6.3-8.2)
[2017-07-03 23:13] VITALS: BP 175/75
== END 2017-07-03 23:13 | disposition home or self-care (01) ==
LOC: ER 18:59
DX: S10.93XA Contusion of unspecified part of neck, initial encounter (principal); X58.XXXA Exposure to other specified factors, initial encounter; F17.210 Nicotine dependence, cigarettes, uncomplicated; E78.00 Pure hypercholesterolemia, unspecified; I10 Essential (primary) hypertension; E11.9 Type 2 diabetes mellitus without complications; Z88.6 Allergy status to analgesic agent; Z98.890 Other specified postprocedural states
CPT/HCPCS: 36415; 80053; 85025; 93880; 99284

== ENCOUNTER 2018-08-10 07:48 | Day surgery (SDC) | payer MEDICARE, OTHER ==
[~2018-08-10 07:48] MED LIST: KETOROLAC TROMETHAMINE 0.45% 4 DROP/0.4 ML DROPERETTE OD PRN; LIDOCAINE 1% INJ-PF (10 MG/ML) 30 ML SDV ONE
[2018-08-10] MEDS: TROPICAMIDE 1% OPH SOLN 3 ML OD PRN ×3 (08:30→08:50)
[2018-08-10] MEDS: TETRACAINE HCL 0.5% OPH SOLN 4 ML OD PRN ×3 (08:30→08:54)
[2018-08-10] MEDS: CYCLOPENTOLATE 0.2%/PHENYLEPHRINE 1% OPH SOLN 2 ML OD PRN ×3 (08:30→08:50)
[2018-08-10] MEDS: BESIFLOXACIN HCL 0.6% OPH SUSP 5 ML BOTTLE OD PRN ×4 (08:33→09:17)
[2018-08-10] MEDS ORDERED: MIDAZOLAM 2 MG/2 ML INJ ONE (08:41)
[2018-08-10] MEDS: CHONDR SU A NA/HYALUR INTRAOC KIT (SURGICARE) ONE ×2 (09:06)
[2018-08-10] MEDS: EPINEPHRINE INJ/PF 1 MG/1 ML AMPULE ONE ×2 (09:06)
[2018-08-10] MEDS: LIDOCAINE 1%/PHENYLEPHRINE 1.5% 1 ML VIAL ONE ×2 (09:06)
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
--- NOTE | 2018-08-11 12:17 | [facility] OPERATIVE REPORT E ---
[facility] Operative Report NAME: ALYSON GARCIA AGE: 78Y DATE OF SURGERY: 08/10/2018 ROOM: PREOPERATIVE DIAGNOSIS: CATARACT, RIGHT EYE. POSTOPERATIVE DIAGNOSIS: CATARACT, RIGHT EYE. OPERATION: Cataract extraction with insertion of an IOL of the right eye. SURGEON: PETEY GAO M.D. ANESTHESIA: Topical. PROCEDURE: After obtaining appropriate consent, the patient's right eye was prepped and draped in sterile fashion as well as the surgeon in a sterile manner and cataract surgery was started. First a paracentesis blade was used to make a side-port incision. Viscoelastic was used to inflate the anterior chamber. Next a 2.4 mm incision was made with a 2.4 mm blade, clear corneal temporally. A continuous capsulorrhexis was made using a cystotome and Utrata forceps. Following this hydrodissection was carried out to make the lens fully loose and mobile and it was rotated 90 degrees. Following this, a [id number] technique was used to phacoemulsify the lens with a CDE of 17.39. The remaining cortex was removed with irrigation/aspiration. Provisc was instilled into the capsular bag to inflate the bag. A SN60WF, 21.5 diopter lens was placed. The remaining viscoelastic material was removed with irrigation/aspiration. Following this, the incision was found to be watertight. Besivance was instilled into the eye and a protective shield was placed over the eye. The patient returned to the postoperative recovery in stable condition. DICTATING PHYSICIAN: PETEY GAO M.D. [id number] PHY#: [id number] 2014 ID: [id number] JOB#: [id number] ACCT: [id number] cc:PETEY GAO M.D. >
== END 2018-08-10 10:00 | disposition home or self-care (01) ==
LOC: SC 07:48
PROVIDERS: ATTEND Internal Medicine
DX: H25.813 Combined forms of age-related cataract, bilateral (principal); H40.013 Open angle with borderline findings, low risk, bilateral; H04.123 Dry eye syndrome of bilateral lacrimal glands; E11.3293 Type 2 diabetes mellitus with mild nonproliferative diabetic retinopathy without macular edema, bilateral; H57.03 Miosis; I10 Essential (primary) hypertension; E78.00 Pure hypercholesterolemia, unspecified; J44.9 Chronic obstructive pulmonary disease, unspecified; M19.90 Unspecified osteoarthritis, unspecified site; E64.9 Sequelae of unspecified nutritional deficiency; F17.210 Nicotine dependence, cigarettes, uncomplicated; Z86.73 Personal history of transient ischemic attack (TIA), and cerebral infarction without residual deficits; M81.0 Age-related osteoporosis without current pathological fracture; Z88.1 Allergy status to other antibiotic agents; Z88.5 Allergy status to narcotic agent; Z79.899 Other long term (current) drug therapy; Z79.84 Long term (current) use of oral hypoglycemic drugs
CPT/HCPCS: 66984; 82962; V2632; J2250; J3490 ×2; A9270; J0171; J2370; 142

== ENCOUNTER 2018-09-07 07:12 | Day surgery (SDC) | payer MEDICARE, OTHER ==
[~2018-09-07 07:12] MED LIST changes: -KETOROLAC TROMETHAMINE 0.45% 4 DROP/0.4 ML DROPERETTE OD PRN; +KETOROLAC TROMETHAMINE 0.45% 4 DROP/0.4 ML DROPERETTE OS PRN; -LIDOCAINE 1% INJ-PF (10 MG/ML) 30 ML SDV ONE
[2018-09-07] MEDS ORDERED: EPINEPHRINE INJ/PF 1 MG/1 ML AMPULE ONE (07:20)
[2018-09-07] MEDS ORDERED: CHONDR SU A NA/HYALUR INTRAOC KIT (SURGICARE) ONE (07:20)
[2018-09-07] MEDS ORDERED: LIDOCAINE 1% INJ-PF (10 MG/ML) 30 ML SDV ONE (07:20)
[2018-09-07] MEDS: TROPICAMIDE 1% OPH SOLN 3 ML OS PRN ×3 (07:46→08:06)
[2018-09-07] MEDS: CYCLOPENTOLATE 0.2%/PHENYLEPHRINE 1% OPH SOLN 2 ML OS PRN ×3 (07:46→08:06)
[2018-09-07] MEDS: BESIFLOXACIN HCL 0.6% OPH SUSP 5 ML BOTTLE OS PRN ×4 (07:47→08:42)
[2018-09-07] MEDS: TETRACAINE HCL 0.5% OPH SOLN 4 ML OS PRN ×3 (07:48→08:14)
[2018-09-07] MEDS ORDERED: LIDOCAINE 1%/PHENYLEPHRINE 1.5% 1 ML VIAL ONE (07:51)
[2018-09-07] MEDS ORDERED: MIDAZOLAM 2 MG/2 ML INJ ONE (08:00)
--- NOTE | 2018-09-07 21:37 | [facility] DISCHARGE SUMMARY E ---
[facility] Discharge Summary NAME: ALYSON GARCIA AGE: 78Y ADMITTED: 09/07/2018 DISCHARGED: FINAL DIAGNOSIS: Cataract, left eye. HOSPITAL COURSE: This is a 78-year-old patient who underwent cataract extraction of the left eye. Patient underwent surgery because she was having difficulty reading small print and driving at night. DISCHARGE INSTRUCTIONS: She should be on a regular diet. No bending at her waist, no heavy lifting. She should use Besivance, Prolensa and Durezol at 3:00 p.m. and 8:00 p.m. Sleep with a rigid shield. I will see her for a 1-day postoperative tomorrow. DICTATING PHYSICIAN: PETEY GAO M.D. [id number] PHY#: [id number] ID: [id number] JOB#: [id number] ACCT: [id number] cc:PETEY GAO M.D. >
--- NOTE | 2018-09-07 21:38 | [facility] OPERATIVE REPORT E ---
[facility] Operative Report NAME: ALYSON GARCIA AGE: 78Y DATE OF SURGERY: 09/07/2018 ROOM: PREOPERATIVE DIAGNOSIS: CATARACT, LEFT EYE. POSTOPERATIVE DIAGNOSIS: CATARACT, LEFT EYE. OPERATION: Cataract extraction with insertion of an IOL of the left eye. SURGEON: PETEY GAO M.D. ANESTHESIA: Topical. PROCEDURE: After obtaining appropriate consent, the patient's left eye was prepped and draped in sterile fashion as well as the surgeon in a sterile manner and cataract surgery was started. First a paracentesis blade was used to make a side-port incision. Viscoelastic was used to inflate the anterior chamber. Next a 2.4 mm incision was made with a 2.4 mm blade, clear corneal temporally. A continuous capsulorrhexis was made using a cystotome and Utrata forceps. Following this hydrodissection was carried out to make the lens fully loose and mobile and it was rotated 90 degrees. Following this, a mclfpl-fic-eypvuwn technique was used to phacoemulsify the lens with a CDE of 13.02. The remaining cortex was removed with irrigation/aspiration. Provisc was instilled into the capsular bag to inflate the bag. A SN60WF, 20.5 diopter lens was placed. The remaining viscoelastic material was removed with irrigation/aspiration. Following this, the incision was found to be watertight. Besivance was instilled into the eye and a protective shield was placed over the eye. The patient returned to the postoperative recovery in stable condition. DICTATING PHYSICIAN: PETEY GAO M.D. 1953M [id number] PHY#: [id number] ID: [id number] JOB#: [id number] ACCT: [id number] cc:PETEY GAO M.D. >
== END 2018-09-07 09:21 | disposition home or self-care (01) ==
LOC: SC 07:12
PROVIDERS: ATTEND Internal Medicine
DX: H25.812 Combined forms of age-related cataract, left eye (principal); H57.03 Miosis; Z96.1 Presence of intraocular lens; I10 Essential (primary) hypertension; K21.9 Gastro-esophageal reflux disease without esophagitis; E11.9 Type 2 diabetes mellitus without complications; D64.9 Anemia, unspecified; Z86.73 Personal history of transient ischemic attack (TIA), and cerebral infarction without residual deficits; Z79.899 Other long term (current) drug therapy; Z79.84 Long term (current) use of oral hypoglycemic drugs; Z79.82 Long term (current) use of aspirin; Z87.891 Personal history of nicotine dependence
CPT/HCPCS: 66984; 82962; V2632; J2250; J3490 ×2; A9270; J0171; J2370; 142

== ENCOUNTER 2019-12-22 22:43 | Inpatient (IN) | payer MEDICARE, OTHER ==
--- NOTE | 2019-12-22 23:11 | ER Document Report ---
ED Cardiac - General Chief Complaint: Chest Pain Stated Complaint: CHEST PAIN Time Seen by Provider: 12/22/19 22:58 Notes: Patient is a an 79-year-old female that comes to the emergency department for chief complaint of sharp pains across her chest. She states this is been going on and off for the past 2 weeks. She states that when it happens she has to breathe through it and then it resolves. She states this happens almost every day, sometimes multiple times a day, each time it lasts for short duration. She states she also has some generalized weakness. She denies fever, chills, cough, shortness of breath, nausea, vomiting, abdominal pain. She states it did happen once after eating fried food but other times happens randomly. She denies history of [place] or cardiac cath, however she has a history of TIA and is on Brilinta, she just stopped Plavix. She also has a history of hypertension, type 2 diabetes, hyperlipidemia. She denies any current symptoms. She comes by EMS and was given 324 mg of aspirin. TRAVEL OUTSIDE OF THE [place] IN LAST 30 DAYS: No - Related Data Allergies/Adverse Reactions: levofloxacin [From Levaquin] Allergy (Verified 12/22/19 22:49) rash morphine [Morphine] Allergy (Verified 12/22/19 22:49) Hallucinations nitrofurantoin [From Macrobid] Allergy (Verified 12/22/19 22:49) rash sulfamethoxazole [From Septra] Allergy (Verified 12/22/19 22:49) kidney pain trimethoprim [From Septra] Allergy (Verified 12/22/19 22:49) kidney pain Past Medical History - General Information source: Patient - Social History Smoking Status: Never Smoker Frequency of alcohol use: None Drug Abuse: None Lives with: Family Family History: None, CVA - Past Medical History Cardiac Medical History: Reports: Hx Hypercholesterolemia, Hx Hypertension Denies: Hx Heart Attack Pulmonary Medical History: Denies: Hx Asthma Neurological Medical History: Denies: Hx Cerebrovascular Accident, Hx Seizures Endocrine Medical History: Reports: Hx Diabetes Mellitus Type 2 Renal/ Medical History: Denies: Hx Peritoneal Dialysis GI Medical History: Reports: Hx Hiatal Hernia. Denies: Hx Hepatitis, Hx Ulcer Psychiatric Medical History: Reports: Hx Depression Infectious Medical History: Denies: Hx Hepatitis Past Surgical History: Reports: Hx Section, Hx Tonsillectomy. Denies: Hx Hysterectomy, Hx Mastectomy, Hx Open Heart Surgery, Hx Pacemaker - Immunizations Hx Diphtheria, Pertussis, Tetanus Vaccination: Yes - 2011 Hx Pneumococcal Vaccination: 08/09/11 Review of Systems - Review of Systems Constitutional: See HPI EENT: No symptoms reported Cardiovascular: See HPI Respiratory: No symptoms reported Gastrointestinal: No symptoms reported Genitourinary: No symptoms reported Female Genitourinary: No symptoms reported Musculoskeletal: No symptoms reported Skin: No symptoms reported Hematologic/Lymphatic: No symptoms reported Neurological/Psychological: No symptoms reported Physical Exam - Vital signs Vitals: Pulse Ox 100 12/22/19 22:43 - Notes Notes: GENERAL: Alert, interacts well. No acute distress. HEAD: Normocephalic, atraumatic. EYES: Pupils equal, round, and reactive to light. Extraocular movements intact. ENT: Oral mucosa moist, tongue midline. Oropharynx unremarkable. Airway patent. NECK: Full range of motion. Supple. Trachea midline. No lymphadenopathy. LUNGS: Clear to auscultation bilaterally, no wheezes, rales, or rhonchi. No respiratory distress. Non-tender chest wall. HEART: Regular rate and rhythm. 2/6 murmur heard throughout ABDOMEN: Soft, non-tender. Non-distended. EXTREMITIES: Moves all 4 extremities spontaneously. No edema, normal radial and dorsalis pedis pulses bilaterally. No cyanosis. BACK: no cervical, thoracic, lumbar midline tenderness. No saddle anesthesia, normal distal neurovascular exam. Moves all extremities in full range of motion. NEUROLOGICAL: Alert and oriented x3. Normal speech. Cranial nerves II through XII grossly intact. Strength 5/5 in all extremities. PSYCH: Normal affect, normal mood. SKIN: Warm, dry, normal turgor. No rashes or lesions noted. Course - Re-evaluation Re-evalutation: Patient is well-appearing on my exam. Vital signs unremarkable. Clear lungs, soft abdomen, unremarkable exam generally. EKG with no acute findings, chest x-ray unremarkable, CBC significantly lower at 8.4 hemoglobin compared to prior in 2017. Normocytic. Patient does report having intermittent blood in the stools although she has had endoscopy/colonoscopy over a year ago and they never found anything. She did stop taking Plavix within 5 days and is on Brilinta. I did perform a rectal exam and this was positive for blood in the stool although there was no black or obvious bloody stool on my exam, patient has not had any bloody bowel movements. Chemistry does show acute renal insufficiency which is also new from previous records here. Patient is unsure if this is new for her. Troponin is negative. Patient with multiple risk factors for cardiac disease with her chest pain, has not had a stress test in several years. In addition to this patient has symptom atic anemia, blood in the stool, and is on a blood thinner. Patient was discussed with Dr. Segura. Discussed with patient at length, we will discuss with hospitalist for admission. Patient states appreciation and agreement. Discussed with Dr. Malagon, patient admitted to medical floor full admission. - Vital Signs Vital signs: Temp Pulse Resp BP Pulse Ox 98.0 F 66 18 181/45 H 100 12/23/19 04:35 12/23/19 04:35 12/23/19 04:35 12/23/19 04:35 12/23/19 04:35 - Laboratory Result Diagrams: 12/22/19 22:54 12/22/19 22:54 Laboratory results interpreted by me: 12/22/19 12/22/19 22:54 22:54 RBC 2.53 L Hgb 8.4 L Hct 23.6 L RDW 18.3 H Chloride 109 H Carbon Dioxide 21 L BUN 45 H Creatinine 2.28 H Est GFR ( Amer) 25 L Est GFR (MDRD) Non-Af 21 L Glucose 270 H Lipase 382.8 H - EKG Interpretation by Me Additional EKG results interpreted by me: EKG shows sinus rhythm at a rate of 72, QTc 447, no T wave inversions or ST segment changes in consecutive leads, normal axis Discharge - Discharge Clinical Impression: Symptomatic anemia, Acute renal insufficiency Chest pain Qualifiers: Chest pain type: other chest pain Qualified Code(s): R07.89 - Other chest pain Condition: Stable Disposition: ADMITTED INPATIENT Admitting Provider: Manas (Hospitalist) Unit Admitted: Medical Floor
[2019-12-22 23:16] LABS: ABSOLUTE BASOPHILS # (AUTO) 0.1 10^3/uL (0.0-0.2); ABSOLUTE EOSINOPHILS # (AUTO) 0.1 10^3/uL (0.0-0.6); ABSOLUTE LYMPHOCYTES (AUTO) 1.3 10^3/uL (0.5-4.7); ABSOLUTE MONOCYTES (AUTO) 0.5 10^3/uL (0.1-1.4); ABSOLUTE NEUT (AUTO) 3.4 10^3/uL (1.7-8.2); BASOPHILS % (AUTO) 1.9 % (0-2); EOSINOPHILS % (AUTO) 1.5 % (0-6); HEMATOCRIT 23.6 % (36.0-47.0); HEMOGLOBIN 8.4 g/dL (12.0-15.5); LYMPHOCYTES % (AUTO) 24.7 % (13-45); MEAN CORPUSCULAR HEMOGLOBIN 33.1 pg (27.0-33.4); MEAN CORPUSCULAR HGB CONC 35.5 g/dL (32.0-36.0); MEAN CORPUSCULAR VOLUME 93 fl (80-97); MONOCYTES % (AUTO) 8.9 % (3-13); PLATELET COUNT 225 10^3/uL (150-450); RED BLOOD COUNT 2.53 10^6/uL (3.72-5.28); RED CELL DISTRIBUTION WIDTH 18.3 % (11.5-14.0); TOTAL CELLS COUNTED % (AUTO) 100 %; WHITE BLOOD COUNT 5.4 10^3/uL (4.0-10.5)
[2019-12-22 23:38] LABS: ALKALINE PHOSPHATASE 115 U/L (38-126); ANION GAP 8 (5-19); ASPARTATE AMINO TRANSFERASE 26 U/L (14-36); BILIRUBIN,TOTAL 0.2 mg/dL (0.2-1.3); BLOOD UREA NITROGEN 45 mg/dL (7-20); CALCIUM 8.9 mg/dL (8.4-10.2); CARBON DIOXIDE 21 mmol/L (22-30); CHLORIDE 109 mmol/L (98-107); GLUCOSE 270 mg/dL (75-110); POTASSIUM 4.3 mmol/L (3.6-5.0)
[2019-12-23] MEDS ORDERED: NORMAL SALINE 500 ML IV ONE (00:31)
--- NOTE | 2019-12-23 00:41 | RADIOLOGY REPORT (SQ) ---
AP Portable chest: 12/22/2019 11:39 PM CDT History: 79-year old patient with chest pain. Comparison: Chest radiograph performed 04/29/2017. Findings: The cardiomediastinal silhouette is normal in size. No pneumothorax is seen. No acute airspace opacities are seen. No discrete pleural effusion is apparent. Atherosclerotic calcifications are seen at the aortic arch. Impression: No acute airspace opacities are seen.
[2019-12-23 01:13] LABS: INTERNATIONAL RATION (INR) 0.91; PROTHROMBIN TIME 12.2 SEC (11.4-15.4)
[2019-12-23 01:14] LABS: PARTIAL THROMBOPLASTIN TIME 27.9 SEC (23.5-35.8)
[2019-12-23] MEDS ORDERED: RINGERS SOLUTION,LACTATED 1,000 ML IV PRN (02:13)
[2019-12-23] MEDS ORDERED: MAGNESIUM HYDROXIDE SUSP 30 ML UDCUP PO PRN (02:13)
[2019-12-23] MEDS ORDERED: ONDANSETRON HCL INJ/PF 4 MG/2 ML SDV IV PRN (02:13)
[2019-12-23] MEDS ORDERED: LEVALBUTEROL HCL NEB 0.63 MG/3 ML AMPUL NEB PRN (02:13)
[2019-12-23] MEDS ORDERED: MAG HYDROX/AL HYDROX/SIMETH SUSP 30 ML UDCUP PO PRN (02:13)
[2019-12-23] MEDS ORDERED: LORAZEPAM INJ 2 MG/1 ML VIAL IV PRN (02:19)
[2019-12-23] MEDS ORDERED: MORPHINE SULFATE 10 MG/ML INJ IV PRN ×3 (02:19)
[2019-12-23] MEDS ORDERED: INSULIN REG, HUMAN 100 UNIT/ML 3 ML VIAL (PYX) SUBCUT PRN (02:19)
[2019-12-23] MEDS ORDERED: NICOTINE 21 MG/24 HR PATCH.TD24 TD PRN (02:19)
[2019-12-23] MEDS ORDERED: ACETAMINOPHEN 325 MG TABLET PO PRN ×2 (02:19→05:54)
[2019-12-23] MEDS ORDERED: DEXTROSE 50%-WATER 25 GM/50 ML DISP.SYRIN IV PRN ×2 (02:20)
[2019-12-23] MEDS ORDERED: GLUCAGON,HUMAN RECOMB 1 MG INJ IM PRN (02:20)
[2019-12-23] MEDS ORDERED: HYDRALAZINE HCL INJ/PF 20 MG/1 ML SDV IV PRN (02:20)
[2019-12-23] MEDS ORDERED: DEXTROSE 40% GEL 15 GM TUBE PO PRN ×2 (02:20)
[2019-12-23 03:13] LABS: CREATINE KINASE MB 0.87 ng/mL (<4.55)
[2019-12-23 03:17] LABS: TROPONIN I < 0.012 ng/mL
[2019-12-23 04:32] LABS: APPEARANCE,URINE CLEAR; BILIRUBIN,URINE NEGATIVE (NEGATIVE); COLOR,URINE STRAW; GLUCOSE, URINE 150 mg/dL (NEGATIVE); KETONES,URINE NEGATIVE (NEGATIVE); LEUKOCYTE ESTERASE,URINE TRACE (NEGATIVE); NITRITE,URINE NEGATIVE (NEGATIVE); PROTEIN,URINE 100 mg/dL (NEGATIVE); URINE SPECIFIC GRAVITY 1.011; UROBILINOGEN,URINE NEGATIVE mg/dL (<2.0)
[2019-12-23] MEDS: PANTOPRAZOLE SODIUM 20 MG TABLET.DR PO SCH (05:14)
[2019-12-23] MEDS: HEPARIN SOD (PORCINE) 5,000 UNIT/ML 1 ML VIAL SUBCUT SCH ×3 (05:15→23:12)
--- NOTE | 2019-12-23 05:53 | PDOC H&P ---
History of Present Illness Admission Date/PCP: 12/23/2019 01:50 No local PCP Patient complains of: Chest pain History of Present Illness: ALYSON GARCIA is a 79 year old female who presented to the emergency room with a two-week history of chest pain. She admits having frequent (several times per day) random intermittent episodes of sharp pains going across her anterior chest for the last 2 weeks. The pain occurs last for less than a minute before resolving spontaneously as long as she remains calm and takes deep breaths. The pain has been associated with recent generalized weakness. She denies other associated or accompanying signs and symptoms. She admits numerous similar episodes related to her chronic gastrointestinal blood loss anemia. She recently completed the second of 2 intravenous infusions to treat her chronic anemia with her internal control specialist in [place]. She has not identified any additional aggravating or ameliorating factors for her chest pain. In the emergency room she was found to have an EKG and cardiac enzymes which were negative for acute cardiac ischemia or injury. She was noted to have an elevation of her creatinine since her last visit at this hospital, and a drop in her hemoglobin since her recent treatment. A stool occult blood test was positive. Patient was subsequently admitted to the hospital for further evaluation and treatment. Past Medical History Cardiac Medical History: Reports: Coronary Artery Disease, Hyperlipidema, Hypertension Denies: Congestive Heart Failure, Myocardial Infarction Pulmonary Medical History: Denies: Asthma, Chronic Obstructive Pulmonary Disease (COPD) EENT Medical History: Reports: Cataracts, Eyes - Right retinal hemorrhage Denies: Ears - Hearing aids Neurological Medical History: Reports: Other - TIA Denies: Hemorrhagic CVA, Ischemic CVA, Seizures Endocrine Medical History: Reports: Diabetes Mellitus Type 2 Denies: Diabetes Mellitus Type 1, Hyperthyroidism, Hypothyroidism Renal/ Medical History: Denies: Chronic Kidney Disease, Nephrolithiasis Malignancy Medical History: Reports: None GI Medical History: Reports: Hiatal Hernia, Other - Chronic occult GI blood loss with chronic anemia Denies: Cirrhosis, Crohn's Disease, Gastroesophageal Reflux Disease, Hepatitis, Peptic Ulcer Disease, Ulcerative Colitis Musculoskeltal Medical History: Denies: Fibromyalgia, Gout Skin Medical History: Denies: Eczema, Psoriasis Psychiatric Medical History: Reports: Depression Denies: Alcohol Dependency, Substance Abuse, Tobacco Dependency Traumatic Medical History: Reports: None Hematology: Reports: Anemia - Chronic GI blood loss: Treated with iron infusions Denies: Bleeding Tendencies Infectious Medical History: Reports: None Past Surgical History Past Surgical History: Reports: Section, Orthopedic Surgery - Left elbow surgery, Tonsillectomy, Tubal Ligation, Other - Bilateral cataract surgery, right retinal surgery, breast biopsies Social History Information Source: Patient Lives with: Family Smoking Status: Former Smoker Electronic Cigarette use?: No Frequency of Alcohol Use: None Hx Recreational Drug Use: No Drugs: None Hx Prescription Drug Abuse: No - Advance Directive Resuscitation Status: Full Code Surrogate healthcare decision maker:: Jacob Garcia Family History Family History: CVA, Hypertension, Other - Alzheimer's disease. denies: CAD, Malignancy Parental Family History Reviewed: Yes Children Family History Reviewed: No Sibling(s) Family History Reviewed.: Yes Medication/Allergy Home Medications: Atorvastatin Calcium [Lipitor 80 mg Tablet] 80 mg PO QHS 12/23/19 Allergies/Adverse Reactions: levofloxacin [From Levaquin] Allergy (Verified 12/22/19 22:49) rash morphine [Morphine] Allergy (Verified 12/22/19 22:49) Hallucinations nitrofurantoin [From Macrobid] Allergy (Verified 12/22/19 22:49) rash sulfamethoxazole [From Septra] Allergy (Verified 12/22/19 22:49) kidney pain trimethoprim [From Septra] Allergy (Verified 12/22/19 22:49) kidney pain Review of Systems Constitutional: PRESENT: as per HPI, weakness. ABSENT: chills, fever(s) Eyes: ABSENT: visual disturbances, other - Eye pain Ears: ABSENT: hearing changes, other - Ear pain Nose, Mouth, and Throat: ABSENT: headache(s), sore throat Cardiovascular: PRESENT: as per HPI, chest pain. ABSENT: dyspnea on exertion, edema, orthropnea, palpitations Respiratory: ABSENT: cough, dyspnea Gastrointestinal: ABSENT: abdominal pain, constipation, diarrhea, nausea, vomiting Genitourinary: ABSENT: dysuria, hematuria Musculoskeletal: PRESENT: as per HPI, muscle weakness. ABSENT: back pain, joint swelling Integumentary: ABSENT: diaphoresis, pruritus, rash Neurological: ABSENT: confusion, convulsions, focal weakness, memory loss, syncope Psychiatric: ABSENT: anxiety, depression Endocrine: ABSENT: cold intolerance, heat intolerance, polydipsia, polyphagia, polyuria Hematologic/Lymphatic: ABSENT: easy bleeding, easy bruising Allergic/Immunologic: ABSENT: seasonal rhinorrhea Physical Exam Vital Signs: Temp Pulse Resp BP Pulse Ox 98.6 F 17 99 12/23/19 00:00 12/23/19 00:00 12/23/19 00:00 Intake & Output 12/21/19 12/22/19 12/23/19 23:59 23:59 23:59 Weight 76.204 kg General appearance: PRESENT: no acute distress, cooperative Head exam: PRESENT: atraumatic, normocephalic Eye exam: PRESENT: conjunctiva pink. ABSENT: conjunctival injection, scleral icterus Ear exam: PRESENT: normal external ear exam. ABSENT: bleeding, drainage Mouth exam: PRESENT: dry mucosa, neck supple Neck exam: ABSENT: JVD, thyromegaly, tracheal deviation Respiratory exam: PRESENT: clear to auscultation tenisha, symmetrical, unlabored Cardiovascular exam: PRESENT: RRR, systolic murmur - Grade 2/6 crescendo decrescendo murmur heard best at the aortic root with radiation to the neck. ABSENT: clicks, gallop, rubs Pulses: PRESENT: normal radial pulses, normal dorsalis pedis pul Vascular exam: PRESENT: normal capillary refill. ABSENT: pallor GI/Abdominal exam: PRESENT: normal bowel sounds, soft Rectal exam: PRESENT: deferred Extremities exam: ABSENT: joint swelling, pedal edema Musculoskeletal exam: ABSENT: deformity, dislocation Neurological exam: PRESENT: alert, oriented to person, oriented to place, oriented to time, oriented to situation, CN II-XII grossly intact. ABSENT: motor sensory deficit Psychiatric exam: PRESENT: appropriate affect, normal mood Skin exam: PRESENT: dry, intact, warm. ABSENT: jaundice, rash, urticaria Results Laboratory Results: 12/22/19 22:54 12/22/19 22:54 12/22/19 12/22/19 22:54 22:54 WBC 5.4 RBC 2.53 L Hgb 8.4 L Hct 23.6 L MCV 93 MCH 33.1 MCHC 35.5 RDW 18.3 H Plt Count 225 Seg Neutrophils % 63.0 Sodium 137.6 Potassium 4.3 Chloride 109 H Carbon Dioxide 21 L Anion Gap 8 BUN 45 H Creatinine 2.28 H Est GFR ( Amer) 25 L Glucose 270 H Calcium 8.9 Total Bilirubin 0.2 AST 26 Alkaline Phosphatase 115 Total Protein 7.0 Albumin 4.0 Lipase 382.8 H 12/22/19 22:54 Troponin I < 0.012 Assessment and Plan - Diagnosis (1) Symptomatic anemia Is this a current diagnosis for this admission?: Yes (2) Chest pain Qualifiers: Chest pain type: other chest pain Qualified Code(s): R07.89 - Other chest pain; R07.8 - Other chest pain Is this a current diagnosis for this admission?: Yes (3) Positive fecal occult blood test Is this a current diagnosis for this admission?: Yes (4) Elevated serum creatinine Is this a current diagnosis for this admission?: Yes (5) Diabetes mellitus type 2 in nonobese Is this a current diagnosis for this admission?: Yes (6) Hyperlipidemia Qualifiers: Hyperlipidemia type: unspecified Qualified Code(s): E78.5 - Hyperlipidemia, unspecified Is this a current diagnosis for this admission?: Yes (7) Hypertension Qualifiers: Hypertension type: essential hypertension Qualified Code(s): I10 - Essential (primary) hypertension Is this a current diagnosis for this admission?: Yes - Plan Summary Summary: Patient will be admitted to the telemetry floor where she will receive routine supportive and symptomatic cares. Serial cardiac enzymes will be obtained. Patient will receive 2 units of packed red blood cells as treatment of her sym ptomatic anemia despite her hemoglobin being greater than 8. A cardiology consultation with Dr. Orozco will be obtained. A nephrology consult will be obtained as soon as nephrology services are once again available. Patient will use morphine sulfate 2 to 4 mg IV every 2 hours as needed for pain. She will use Ativan 1 mg IV every 4 hours as needed for anxiety or restlessness. She will be continued on her usual home medications, as appropriate, once her medical list has been verified and reconciled. She will be on a cardiac and diabetic restricted diet. Before meals and at bedtime Accu-Cheks will be obtained with sliding scale insulin used to cover hyperglycemia and a hypoglycemic protocol in place. A surgical consultation with Dr. Valerio will be obtained for evaluation of her guaiac positive stool. - Time Time Spent with patient: 15-24 minutes Medications reviewed and adjusted accordingly: Yes Anticipated discharge: Home - Inpatient Certification Based on my medical assessment, after consideration of the patient's comorbidities, presenting symptoms, or acuity I expect that the services needed warrant INPATIENT care.: Yes I certify that my determination is in accordance with my understanding of Medicare's requirements for reasonable and necessary INPATIENT services [42 CFR 412.3e].: Yes Medical Necessity: Significant Comorbidiites Make Outpatient Treatment Too Risky, Need For IV Fluids, Need For Continuous Telemetry Monitoring, Risk of Complication if Not Cared For in Hospital, Risk of Diagnosis Which Will Require Inpatient Eval/Care/Monitoring
[2019-12-23] MEDS ORDERED: FUROSEMIDE INJ/PF 20 MG/2 ML SDV IV PRN (05:54)
[2019-12-23] MEDS ORDERED: NORMAL SALINE 250 ML IV PRN ×2 (05:54)
[2019-12-23] MEDS ORDERED: DIPHENHYDRAMINE HCL 25 MG CAPSULE PO PRN (05:54)
--- NOTE | 2019-12-23 08:05 | PDOC CONSULTATION ---
Consultation Consult Date: 12/23/19 Attending physician:: MOOSE MADRID Provider Consulted: CT PHAN Consult reason:: Chest pain History of Present Illness Admission Date/PCP: 12/23/19 02:36 History of Present Illness: ALYSON GARCIA is a 79 year old female with history of hypertension, type 2 diabetes, hyperlipidemia, melena in the past, anemia, stroke several years ago, peripheral vascular disease status post right CEA on 06/29/[address] Burch at [facility], prior history of anemia who is consulted to our service for further evaluation of chest pain. The patient began with chest pain approximately 1 month ago. She describes it as a pressure as well and is regular pain, across the front of her chest, lasting anywhere from 3 to 5 mi nutes, sometimes so severe that she feels her chest is going to blow open, resolves with rest and deep breathing, recurs mostly at random however it may also be brought on by the use of the upper extremities. She states that she gets this pain when she is anemic and that this has happened several times in the past. Once her hemoglobin goes up all of her chest pain resolves. Of note, her CT surgeon at [facility] started the patient on Plavix due to her peripheral arterial disease however the patient developed dizziness therefore the medication was changed to Brilinta 60 mg twice daily. Upon admission yesterday she was found to be quite hypertensive with an elevated creatinine at 2.8 which is actually close to her baseline which is between 2.1 and 2.2. Of note, her hemoglobin in October 2019 was 12.2 and her LDL was at goal at 67. She feels well from the cardiovascular standpoint this morning and specifically denies chest pain, shortness of breath, SANDY, PND, lower extremity edema, palpitations, syncope and presyncope. Her telemetry today demonstrates normal sinus rhythm. Physical exam on 12/23/2019: GENERAL: Pleasant and conversational. Oriented x3 with normal mood. Not in acute distress. Well groomed and well developed. HEENT: Normocephalic, atraumatic. Pupils equal. Sclerae anicteric. Oropharynx moist. NECK: No JVD. Bruit noted on the left carotid. LUNGS: Clear to auscultation bilaterally. Normal respiratory effort without the use of accessory muscles or intercostal retractions. CARDIOVASCULAR: Regular rate and rhythm, normal S1 and S2 without murmurs, rubs, or gallops. PMI not displaced. ABDOMEN: No masses or tenderness to palpation. No bruit. No splenomegaly or hepatomegaly. No abdominal aorta bruit noted. EXTREMITIES: No edema, no cyanosis, no clubbing. +2 pulses femoral and pedal pulses bilaterally. SKIN: No lesions or rashes. MUSCULOSKELETAL: No chest tenderness to palpation. NEUROLOGIC: Nonfocal. No gross sensory or motor deficits bilateral upper or lower extremities. Cardiac studies: Renal ultrasound on 11/20/2019: -Multiple small cysts in both kidneys. -4.7 cm exophytic cyst arises from the superior pole of the right kidney. -There is thinning of the renal parenchyma in the left kidney. -Increased echogenicity bilaterally which may be due to long history of diabetes and may indicate early findings of chronic renal failure. -Atherosclerotic changes within the abdominal aorta with a small aneurysm noted in the anterior margin of the distal abdominal aorta measuring 10 mm in length. -A few 2 mm gallstones in the dependent portion of the gallbladder. Echocardiogram on 10/09/2018: -LV systolic function is normal. -Mild concentric LVH. -Proximal septal thickening. -Grade 2 diastolic dysfunction. -Markedly elevated left ventricular filling pressures. -Mild MR, moderate PI, trace TR. Lexiscan MPS on 10/10/2019: -No evidence of ischemia or infarct. Past Medical History Cardiac Medical History: Reports: Coronary Artery Disease, Hyperlipidema, Hype rtension Denies: Congestive Heart Failure, Myocardial Infarction Pulmonary Medical History: Denies: Asthma, Chronic Obstructive Pulmonary Disease (COPD) EENT Medical History: Reports: Cataracts, Eyes - Right retinal hemorrhage Denies: Ears - Hearing aids Neurological Medical History: Reports: Other - TIA Denies: Hemorrhagic CVA, Ischemic CVA, Seizures Endocrine Medical History: Reports: Diabetes Mellitus Type 2 Denies: Diabetes Mellitus Type 1, Hyperthyroidism, Hypothyroidism Renal/ Medical History: Denies: Chronic Kidney Disease, Nephrolithiasis Malignancy Medical History: Reports: None GI Medical History: Reports: Hiatal Hernia, Other - Chronic occult GI blood loss with chronic anemia Denies: Cirrhosis, Crohn's Disease, Gastroesophageal Reflux Disease, Hepatitis, Peptic Ulcer Disease, Ulcerative Colitis Musculoskeltal Medical History: Denies: Fibromyalgia, Gout Skin Medical History: Denies: Eczema, Psoriasis Psychiatric Medical History: Reports: Depression Denies: Alcohol Dependency, Substance Abuse, Tobacco Dependency Traumatic Medical History: Reports: None Hematology: Reports: Anemia - Chronic GI blood loss: Treated with iron infusions Denies: Sickle Cell Disease, Bleeding Tendencies Infectious Medical History: Reports: None Past Surgical History Past Surgical History: Reports: Section, Orthopedic Surgery - Left elbow surgery, Tonsillectomy, Tubal Ligation, Other - Bilateral cataract surgery, right retinal surgery, breast biopsies Denies: Amputation, Hysterectomy, Mastectomy, Pacemaker Social History Lives with: Family Smoking Status: Former Smoker Cigarettes Packs Per Day: 0.2 Electronic Cigarette use?: No Number of Years Smokin Frequency of Alcohol Use: None Hx Recreational Drug Use: No Drugs: None Hx Prescription Drug Abuse: No - Advance Directive Resuscitation Status: Full Code Family History Family History: CVA, Hypertension, Other - Alzheimer's disease. denies: CAD, Malignancy Parental Family History Reviewed: Yes Children Family History Reviewed: Yes Sibling(s) Family History Reviewed.: Yes Medication/Allergy Home Medications: Amlodipine Besylate [Norvasc 10 mg Tablet] 10 mg PO DAILY 12/23/19 Aspirin [Aspirin 81 mg Chewable Tablet] 81 mg PO DAILY 12/23/19 Atorvastatin Calcium [Lipitor 80 mg Tablet] 80 mg PO QHS 12/23/19 Ezetimibe 10 mg PO 12/23/19 Furosemide [Lasix 20 mg Tablet] 20 mg PO DAILY 12/23/19 Glipizide [Glucotrol Xl 5 mg Tab.er] 10 mg PO BID 12/23/19 Hydralazine HCl 100 mg PO BID 12/23/19 Insulin Glargine,Hum.rec.anlog [Lantus Insulin 100 Unit/mL Insulin Pen] 10 units SUBCUT QHS 12/23/19 Losartan Potassium 50 mg PO BID 12/23/19 Metoprolol Succinate [Toprol Xl 25 mg Tab.sr] 25 mg PO DAILY 12/23/19 Minoxidil [Loniten 2.5 mg Tablet] 2.5 mg PO BID 12/23/19 Ticagrelor [Brilinta] 60 mg PO BID 12/23/19 Allergies/Adverse Reactions: levofloxacin [From Levaquin] Allergy (Verified 12/22/19 22:49) rash morphine [Morphine] Allergy (Verified 12/22/19 22:49) Hallucinations nitrofurantoin [From Macrobid] Allergy (Verified 12/22/19 22:49) rash sulfamethoxazole [From ] Allergy (Verified 12/22/19 22:49) kidney pain trimethoprim [From ] Allergy (Verified 12/22/19 22:49) kidney pain Physical Exam Vital Signs: Temp Pulse Resp BP Pulse Ox 98.0 F 66 18 181/45 H 100 12/23/19 04:35 12/23/19 04:35 12/23/19 04:35 12/23/19 04:35 12/23/19 04:35 Intake & Output 12/21/19 12/22/19 12/23/19 06:59 06:59 06:59 Intake Total 500 Balance 500 Weight 76.6 kg Results Laboratory Results: 12/22/19 22:54 12/22/19 22:54 12/22/19 12/22/19 12/23/19 22:54 22:54 01:17 WBC 5.4 RBC 2.53 L Hgb 8.4 L Hct 23.6 L MCV 93 MCH 33.1 MCHC 35.5 RDW 18.3 H Plt Count 225 Seg Neutrophils % 63.0 Sodium 137.6 Potassium 4.3 Chloride 109 H Carbon Dioxide 21 L Anion Gap 8 BUN 45 H Creatinine 2.28 H Est GFR ( Amer) 25 L Glucose 270 H Calcium 8.9 Total Bilirubin 0.2 AST 26 Alkaline Phosphatase 115 Total Protein 7.0 Albumin 4.0 Lipase 382.8 H Urine Color Urine Appearance Urine pH Ur Specific [place] Urine Protein Urine Glucose (UA) Urine Ketones Urine Blood Urine Nitrite Ur Leukocyte Esterase Urine WBC (Auto) Urine RBC (Auto) Blood Type O POSITIVE Antibody Screen NEGATIVE 12/23/19 03:28 WBC RBC Hgb Hct MCV MCH MCHC RDW Plt Count Seg Neutrophils % Sodium Potassium Chloride Carbon Dioxide Anion Gap BUN Creatinine Est GFR ( Amer) Glucose Calcium Total Bilirubin AST Alkaline Phosphatase Total Protein Albumin Lipase Urine Color STRAW Urine Appearance CLEAR Urine pH 6.0 Ur Specific [place] 1.011 Urine Protein 100 H Urine Glucose (UA) 150 H Urine Ketones NEGATIVE Urine Blood NEGATIVE Urine Nitrite NEGATIVE Ur Leukocyte Esterase TRACE H Urine WBC (Auto) 1 Urine RBC (Auto) 0 Blood Type Antibody Screen 12/22/19 12/23/19 12/23/19 22:54 01:59 01:59 Creatine Kinase 59 CK-MB (CK-2) Troponin I < 0.012 Cancelled 12/23/19 01:59 Creatine Kinase CK-MB (CK-2) 0.87 Troponin I < 0.012 Impressions: 12/22/19 22:54 12/22/19 22:54 MCV 93 fl (80-97) 12/22/19 22:54 MCH 33.1 pg (27.0-33.4) 12/22/19 22:54 MCHC 35.5 g/dL (32.0-36.0) 12/22/19 22:54 RDW 18.3 % (11.5-14.0) H 12/22/19 22:54 Seg Neutrophils % 63.0 % (42-78) 12/22/19 22:54 Chloride 109 mmol/L (98-107) H 12/22/19 22:54 Carbon Dioxide 21 mmol/L (22-30) L 12/22/19 22:54 Anion Gap 8 (5-19) 12/22/19 22:54 Est GFR ( Amer) 25 (>60) L 12/22/19 22:54 Glucose 270 mg/dL (75-110) H 12/22/19 22:54 Calcium 8.9 mg/dL (8.4-10.2) 12/22/19 22:54 Total Bilirubin 0.2 mg/dL (0.2-1.3) 12/22/19 22:54 AST 26 U/L (14-36) 12/22/19 22:54 Alkaline Phosphatase 115 U/L (38-126) 12/22/19 22:54 Total Protein 7.0 g/dL (6.3-8.2) 12/22/19 22:54 Albumin 4.0 g/dL (3.5-5.0) 12/22/19 22:54 Lipase 382.8 U/L (23-300) H 12/22/19 22:54 Urine Color STRAW 12/23/19 03:28 Urine Appearance CLEAR 12/23/19 03:28 Urine pH 6.0 (5.0-9.0) 12/23/19 03:28 Ur Specific [place] 1.011 12/23/19 03:28 Urine Protein 100 mg/dL (NEGATIVE) H 12/23/19 03:28 Urine Glucose (UA) 150 mg/dL (NEGATIVE) H 12/23/19 03:28 Urine Ketones NEGATIVE mg/dL (NEGATIVE) 12/23/19 03:28 Urine Blood NEGATIVE (NEGATIVE) 12/23/19 03:28 Urine Nitrite NEGATIVE (NEGATIVE) 12/23/19 03:28 Ur Leukocyte Esterase TRACE (NEGATIVE) H 12/23/19 03:28 Urine WBC (Auto) 1 /HPF 12/23/19 03:28 Urine RBC (Auto) 0 /HPF 12/23/19 03:28 Blood Type O POSITIVE 12/23/19 01:17 Antibody Screen NEGATIVE 12/23/19 01:17 12/22/19 12/23/19 12/23/19 22:54 01:59 01:59 Creatine Kinase 59 CK-MB (CK-2) Troponin I < 0.012 Cancelled 12/23/19 01:59 Creatine Kinase CK-MB (CK-2) 0.87 Troponin I < 0.012 Current Medication List Generic Name Dose Route Start Last Admin Trade Name Freq PRN Reason Stop Dose Admin Acetaminophen 650 mg 12/23/19 02:19 Tylenol 325 Mg Tablet PO 01/22/20 02:18 Q4HP PRN For headache, pain or fever Acetaminophen 650 mg 12/23/19 05:54 Tylenol 325 Mg Tablet PO 12/24/19 05:53 .BEFORE TRANSFUSION PRN THIS MED IS NOT "PRN" Al Hydrox/Mg Hydrox/Simethicone 30 ml 12/23/19 02:13 Maalox Plus Susp 30 Udcup PO 01/22/20 02:12 Q6HP PRN HEARTBURN Dextrose 12.5 gm 12/23/19 02:20 Dextrose Inj 50% Syringe (25 Gm/50 Ml) IV 01/22/20 02:19 PRN PRN FOR BG 50-69 IN ALERT PATIENT Protocol Dextrose 25 gm 12/23/19 02:20 Dextrose Inj 50% Syringe (25 Gm/50 Ml) IV 01/22/20 02:19 PRN PRN PER PROTOCOL Protocol Diphenhydramine HCl 25 mg 12/23/19 05:54 Benadryl 25 Mg Capsule PO 12/24/19 05:53 .BEFORE TRANSFUSION PRN THIS MED IS NOT "PRN" Docusate Sodium 100 mg 12/23/19 10:00 Colace 100 Mg Capsule PO 01/22/20 09:59 BID DOUGIE Furosemide 10 mg 12/23/19 05:54 Lasix Inj/Pf 20 Mg/2 Ml Sdv IV 12/24/19 05:53 .AFTER FIRST UNIT PRN THIS MED IS NOT "PRN" Glucagon 1 mg 12/23/19 02:20 Glucagen Inj 1 Mg Vial IM 01/22/20 02:19 PRN PRN Evaluate for BG < 70 Protocol Glucose 15 gm 12/23/19 02:20 Glutose 40% Gel 15 Gm Tube PO 01/22/20 02:19 PRN PRN FOR BG 50-69 IN ALERT PATIENT Protocol Glucose 30 gm 12/23/19 02:20 Glutose 40% Gel 15 Gm Tube PO 01/22/20 02:19 PRN PRN FOR BG < 50 IN ALERT PATIENT Protocol Heparin Sodium (Porcine) 5,000 unit 12/23/19 06:00 12/23/19 05:15 Heparin Inj 5,000 Units/Ml 1 Ml Vial SUBCUT 01/22/20 05:59 Not Given Q8 DOUGIE Hydralazine HCl 20 mg 12/23/19 02:20 Apresoline Inj/Pf 20 Mg/1 Ml Sdv IV 01/22/20 02:19 Q4HP PRN Give For Sbp > 160 / Dbp > 100 Lactated Ringer's 1,000 mls @ 167 mls/hr 12/23/19 02:13 Lactated Ringers 1000 Ml Iv Soln IV CONTINUOUS PRN THIS MED IS NOT "PRN" Sodium Chloride 250 mls @ 30 mls/hr 12/23/19 05:54 Nacl 0.9% 250 Ml Iv Soln IV 12/24/19 05:53 .DURING TRANSFUSION PRN THIS MED IS NOT "PRN" Sodium Chloride 250 mls @ 0 mls/hr 12/23/19 05:54 Nacl 0.9% 250 Ml Iv Soln IV 12/24/19 05:53 CONTINUOUS PRN AFTER EACH UNIT As Directed Insulin Human Regular 0 - 15 unit 12/23/19 02:19 Humulin R (Pyxis) Insulin 100 Unit/Ml 3ml SUBCUT 01/22/20 02:18 ACHSP PRN PER PROTOCOL Protocol Levalbuterol HCl 0.63 mg 12/23/19 02:13 Xopenex Neb 0.63 Mg/3 Ml Ampul NEB 01/22/20 02:12 RTQ2HP PRN SHORTNESS OF BREATH Lorazepam 1 mg 12/23/19 02:19 Ativan Inj 2 Mg/1 Ml Vial IV 12/30/19 02:18 Q4HP PRN ANXIETY/AGITATION Magnesium Hydroxide 30 ml 12/23/19 02:13 Milk Of Magnesia 30 Ml Udcup PO 01/22/20 02:12 HSP PRN FOR CONSTIPATION Morphine Sulfate 2 mg 12/23/19 02:19 Morphine 10 Mg/Ml Inj IV 12/30/19 02:18 Q2HP PRN FOR PAIN SCALE 1-2 Morphine Sulfate 3 mg 12/23/19 02:19 Morphine 10 Mg/Ml Inj IV 12/30/19 02:18 Q2HP PRN FOR PAIN SCALE 3-4 Morphine Sulfate 4 mg 12/23/19 02:19 Morphine 10 Mg/Ml Inj IV 12/30/19 02:18 Q2HP PRN PAIN SCALE OF 5 Nicotine 1 each 12/23/19 02:19 Nicoderm 21 Mg/24 Hr Transderm Patch TD 01/22/20 02:18 DAILYP PRN WITHDRAWAL SYMPTOMS Ondansetron HCl 4 mg 12/23/19 02:13 Zofran Inj/Pf 4 Mg/2 Ml Sdv IV 01/22/20 02:12 Q4HP PRN FOR NAUSEA/VOMITING Pantoprazole Sodium 20 mg 12/23/19 06:00 12/23/19 05:[address] Tablet PO 01/22/20 05:59 20 mg Q6AM DOUGIE Administration Sodium Chloride 2.5 ml 12/23/19 06:00 12/23/19 05:15 Saline Flush 2.5 Ml Monoject Prefil Syrin IV 01/22/20 05:59 2.5 ml Q8 DOUGIE Administration Discontinued Medications Generic Name Dose Route Start Last Admin Trade Name Freq PRN Reason Stop Dose Admin Sodium Chloride 500 mls @ 0 mls/hr 12/23/19 00:31 12/23/19 02:54 Nacl 0.9% 500 Ml Iv Soln IV 12/23/19 00:32 Infused NOW ONE Infusion Wide Open Assessment & Plan - Diagnosis (1) Chest pain Qualifiers: Chest pain type: other chest pain Qualified Code(s): R07.89 - Other chest pain; R07.8 - Other chest pain Plan: The patient remains asymptomatic since admission. She states that she has been getting this chest pain on a regular basis when she is anemic which currently she is after having melena. Her cardiac troponins are negative x2 and she had a normal Lexiscan nuclear stress test in October 2018. It is likely that her chest pain is secondary to demand related ischemia secondary to her low hemoglobin. She endorses melena recently. Her echocardiogram in October 2018 was most significant for a normal ejection fraction and grade 2 diastolic dysfunction. Recommendations: -Continue with cardiac telemetry. -Given her significant anemia and history of recent melena I would recommend temporarily stopping her aspirin and Brilinta until GI work-up is completed. -Sublingual nitroglycerin if chest pain recurs. -No further ischemic work-up yet. -Would consider left heart catheterization if the patient has exertional angina after her hemoglobin is back to her normal. (2) Acute renal insufficiency Plan: Her renal function is essentially at her baseline. Will defer further management to her primary team. (3) Symptomatic anemia Is this a current diagnosis for this admission?: Yes Plan: Appears to be secondary to a GI etiology. GI consult is in place and the patient is scheduled to be transfused. I will defer further management to primary team. (4) Hypertension Qualifiers: Hypertension type: essential hypertension Qualified Code(s): I10 - Essential (primary) hypertension Is this a current diagnosis for this admission?: Yes Plan: Her blood pressure is above goal. Recommendations: -Optimize outpatient medical regimen. -Further management per primary team. (5) Peripheral arterial disease Plan: The patient has a left carotid bruit and she is status post right CEA on 06/29/2017. She denies new neurological complaints. Her most recent carotid ultrasound in September 2019 demonstrated a 70 to 99% narrowing of the proximal left internal carotid artery which appears unchanged from a prior study on 07/20/2018. Recommendations: -Continue with current medical management. -Continue to follow-up with CT surgery at [facility].
[2019-12-23 08:57] LABS: TROPONIN I < 0.012 ng/mL
[2019-12-23] MEDS ORDERED: LOSARTAN POTASSIUM 50 MG TABLET PO SCH ×2 (10:00→18:00)
[2019-12-23] MEDS ORDERED: MINOXIDIL 2.5 MG TABLET PO SCH (10:00)
[2019-12-23] MEDS ORDERED: HYDRALAZINE HCL 50 MG TABLET PO SCH (10:00)
[2019-12-23] MEDS ORDERED: FUROSEMIDE 20 MG TABLET PO SCH (10:00)
[2019-12-23] MEDS ORDERED: METOPROLOL SUCCINATE 25 MG TAB.SR.24H PO SCH (10:00)
--- NOTE | 2019-12-23 10:50 | PDOC CONSULTATION ---
Consultation Consult Date: 12/23/19 Provider Consulted: SURGICAL SURGICALIST Consult reason:: anemia, melena History of Present Illness Admission Date/PCP: 12/23/19 02:36 Patient complains of: weakness, chest pain, melena, anemia History of Present Illness: ALYSON GARCIA is a 79 year old female seen in consultation at the request of the hospitalist service. The patient has a longstanding history of melena (1 year). She has required transfusion in the past. She reports that when her hemoglobin becomes low, she begins to have chest pain. Her last EGD and colonoscopy were approximately 3 years ago, and were normal. She has not had diagnostic endoscopy since her melena started. She reports that her melena is constant. Nothing makes it better or worse. Currently she takes aspirin and Brilinta. She denies shortness of breath, headache, dizziness, fevers, chills, nausea, vomiting, hematemesis, hematochezia. She does report orthostasis, melena, and fatigue. Past Medical History Cardiac Medical History: Reports: Coronary Artery Disease, Hyperlipidema, Hypertension Denies: Congestive Heart Failure, Myocardial Infarction Pulmonary Medical History: Denies: Asthma, Chronic Obstructive Pulmonary Disease (COPD) EENT Medical History: Reports: Cataracts, Eyes - Right retinal hemorrhage Denies: Ears - Hearing aids Neurological Medical History: Reports: Other - TIA Denies: Hemorrhagic CVA, Ischemic CVA, Seizures Endocrine Medical History: Reports: Diabetes Mellitus Type 2 Denies: Diabetes Mellitus Type 1, Hyperthyroidism, Hypothyroidism Renal/ Medical History: Denies: Chronic Kidney Disease, Nephrolithiasis Malignancy Medical History: Reports: None GI Medical History: Reports: Hiatal Hernia, Other - Chronic occult GI blood loss with chronic anemia Denies: Cirrhosis, Crohn's Disease, Gastroesophageal Reflux Disease, Hepati tis, Peptic Ulcer Disease, Ulcerative Colitis Musculoskeltal Medical History: Denies: Fibromyalgia, Gout Skin Medical History: Denies: Eczema, Psoriasis Psychiatric Medical History: Reports: Depression Denies: Alcohol Dependency, Substance Abuse, Tobacco Dependency Traumatic Medical History: Reports: None Hematology: Reports: Anemia - Chronic GI blood loss: Treated with iron infusions Denies: Sickle Cell Disease, Bleeding Tendencies Infectious Medical History: Reports: None Past Surgical History Past Surgical History: Reports: Section, Orthopedic Surgery - Left elbow surgery, Tonsillectomy, Tubal Ligation, Other - Bilateral cataract surgery, right retinal surgery, breast biopsies Denies: Amputation, Hysterectomy, Mastectomy, Pacemaker Social History Lives with: Family Smoking Status: Former Smoker Cigarettes Packs Per Day: 0.2 Electronic Cigarette use?: No Number of Years Smokin Frequency of Alcohol Use: None Hx Recreational Drug Use: No Drugs: None Hx Prescription Drug Abuse: No - Advance Directive Resuscitation Status: Full Code Family History Family History: CVA, Hypertension, Other - Alzheimer's disease. denies: CAD, Malignancy Parental Family History Reviewed: Yes Children Family History Reviewed: Yes Sibling(s) Family History Reviewed.: Yes Medication/Allergy Home Medications: Amlodipine Besylate [Norvasc 10 mg Tablet] 10 mg PO DAILY 12/23/19 Aspirin [Ecotrin 81 mg EC Tablet] 81 mg PO DAILY 12/23/19 Atorvastatin Calcium [Lipitor 80 mg Tablet] 80 mg PO QHS 12/23/19 Ezetimibe 10 mg PO 12/23/19 Furosemide [Lasix 20 mg Tablet] 20 mg PO DAILY 12/23/19 Glipizide [Glucotrol Xl 5 mg Tab.er] 10 mg PO BID 12/23/19 Hydralazine HCl 100 mg PO BID 12/23/19 Insulin Glargine,Hum.rec.anlog [Lantus Insulin 100 Unit/mL Insulin Pen] 10 units SUBCUT QHS 12/23/19 Losartan Potassium 50 mg PO BID 12/23/19 Metoprolol Succinate [Toprol Xl 25 mg Tab.sr] 25 mg PO DAILY 12/23/19 Minoxidil [Loniten 2.5 mg Tablet] 2.5 mg PO BID 12/23/19 Ticagrelor [Brilinta] 60 mg PO BID 12/23/19 Allergies/Adverse Reactions: levofloxacin [From Levaquin] Allergy (Verified 12/22/19 22:49) rash morphine [Morphine] Allergy (Verified 12/22/19 22:49) Hallucinations nitrofurantoin [From Macrobid] Allergy (Verified 12/22/19 22:49) rash sulfamethoxazole [From Septra] Allergy (Verified 12/22/19 22:49) kidney pain trimethoprim [From Septra] Allergy (Verified 12/22/19 22:49) kidney pain Review of Systems Constitutional: PRESENT: weakness. ABSENT: anorexia, chills, fatigue, fever(s) Eyes: ABSENT: visual disturbances Ears: ABSENT: hearing changes Nose, Mouth, and Throat: ABSENT: sore throat Cardiovascular: PRESENT: chest pain Respiratory: ABSENT: cough, dyspnea Gastrointestinal: PRESENT: melena. ABSENT: abdominal pain, hematemesis, hematochezia, nausea, vomiting Genitourinary: ABSENT: dysuria Musculoskeletal: ABSENT: back pain Integumentary: ABSENT: pruritus, rash Neurological: PRESENT: weakness. ABSENT: confusion, convulsions, dizziness Psychiatric: ABSENT: anxiety, depression Endocrine: ABSENT: cold intolerance, heat intolerance Physical Exam Vital Signs: Temp Pulse Resp BP Pulse Ox 97.9 F 63 16 109/47 L 92 12/23/19 09:51 12/23/19 09:51 12/23/19 09:51 12/23/19 09:51 12/23/19 09:51 Intake & Output 12/22/19 12/23/19 12/24/19 06:59 06:59 06:59 Intake Total 500 0 Balance 500 0 Weight 76.6 kg General appearance: PRESENT: no acute distress, cooperative Head exam: PRESENT: atraumatic, normocephalic Eye exam: PRESENT: EOMI, PERRLA. ABSENT: scleral icterus Mouth exam: PRESENT: moist, neck supple Neck exam: ABSENT: meningismus, tenderness, thyromegaly, tracheal deviation Respiratory exam: PRESENT: unlabored. ABSENT: chest wall tenderness, tachypnea, wheezes Cardiovascular exam: ABSENT: tachycardia Pulses: PRESENT: normal radial pulses Vascular exam: PRESENT: pallor GI/Abdominal exam: PRESENT: soft. ABSENT: distended, firm, guarding, rebound, rigid, tenderness Rectal exam: PRESENT: deferred Extremities exam: ABSENT: clubbing Musculoskeletal exam: ABSENT: deformity Neurological exam: PRESENT: alert, awake, oriented to person, oriented to place, oriented to time, oriented to situation, CN II-XII grossly intact Psychiatric exam: ABSENT: agitated, anxious, depressed Focused psych exam: ABSENT: delusional Skin exam: ABSENT: cyanosis, erythema, jaundice Results Laboratory Results: 12/22/19 22:54 12/22/19 22:54 12/22/19 12/22/19 12/23/19 22:54 22:54 01:17 WBC 5.4 RBC 2.53 L Hgb 8.4 L Hct 23.6 L MCV 93 MCH 33.1 MCHC 35.5 RDW 18.3 H Plt Count 225 Seg Neutrophils % 63.0 Sodium 137.6 Potassium 4.3 Chloride 109 H Carbon Dioxide 21 L Anion Gap 8 BUN 45 H Creatinine 2.28 H Est GFR ( Amer) 25 L Glucose 270 H Calcium 8.9 Total Bilirubin 0.2 AST 26 Alkaline Phosphatase 115 Total Protein 7.0 Albumin 4.0 Lipase 382.8 H Urine Color Urine Appearance Urine pH Ur Specific Novelty Urine Protein Urine Glucose (UA) Urine Ketones Urine Blood Urine Nitrite Ur Leukocyte Esterase Urine WBC (Auto) Urine RBC (Auto) Blood Type O POSITIVE Antibody Screen NEGATIVE 12/23/19 03:28 WBC RBC Hgb Hct MCV MCH MCHC RDW Plt Count Seg Neutrophils % Sodium Potassium Chloride Carbon Dioxide Anion Gap BUN Creatinine Est GFR ( Amer) Glucose Calcium Total Bilirubin AST Alkaline Phosphatase Total Protein Albumin Lipase Urine Color STRAW Urine Appearance CLEAR Urine pH 6.0 Ur Specific Novelty 1.011 Urine Protein 100 H Urine Glucose (UA) 150 H Urine Ketones NEGATIVE Urine Blood NEGATIVE Urine Nitrite NEGATIVE Ur Leukocyte Esterase TRACE H Urine WBC (Auto) 1 Urine RBC (Auto) 0 Blood Type Antibody Screen 12/22/19 12/23/19 12/23/19 22:54 01:59 01:59 Creatine Kinase 59 CK-MB (CK-2) Troponin I < 0.012 Cancelled 12/23/19 12/23/19 12/23/19 01:59 08:10 08:10 Creatine Kinase 51 CK-MB (CK-2) 0.87 1.10 Troponin I < 0.012 < 0.012 Assessment & Plan - Diagnosis (1) Anemia Qualifiers: Anemia type: unspecified type Qualified Code(s): D64.9 - Anemia, unspecified Is this a current diagnosis for this admission?: Yes (2) Melena Is this a current diagnosis for this admission?: Yes - Plan Summary Plan Summary: This is an 79-year-old female with anemia and melena. She has a history of ongoing anemia for the last 1 year. She takes aspirin and Brilinta. I have recommended the cessation of these medications for now. The patient presented with chest pain, which she has had before. She reports that the chest pain subsides after transfusion. Per cardiology, no intervention is planned at this time. Her last EGD and colonoscopy were approximately 3 years ago. She reports that they were normal. I have discussed inpatient versus outpatient endoscopy. The patient is requesting that upper and lower endoscopy be performed while here under the supervision of medicine and cardiology. This is reasonable. I will plan a bowel prep today. EGD and colonoscopy is planned for tomorrow. Risks/benefits discussed, informed consent obtained, and all questions answered.
--- NOTE | 2019-12-23 10:56 | EKG REPORT ---
SEVERITY:- NORMAL ECG - SINUS RHYTHM : Confirmed by: Patricia Caballero 23-Dec-2019 10:56:29
[2019-12-23] MEDS ORDERED: BISACODYL 5 MG TABEC PO ONE (11:30)
[2019-12-23] MEDS ORDERED: POLYETHYLENE GLYCOL 3350 POWDER 17 GM/1 PACKET PO ONE (12:00)
[2019-12-23] MEDS: DOCUSATE SODIUM 100 MG CAPSULE PO SCH ×2 (12:14→17:38)
[2019-12-23] MEDS: AMLODIPINE BESYLATE 10 MG TABLET PO SCH (12:14)
[2019-12-23] MEDS: GLIPIZIDE XL 5 MG TAB.ER.24 PO SCH ×2 (12:15→17:36)
--- NOTE | 2019-12-23 13:24 | Progress Note ---
Provider Note Provider Note: 12/23/2019 Brief hospitalist note. Patient was admitted to the hospital through the emergency room for a 2-week history of chest pain as well as 1 year history of melena and anemia. She states when her hemoglobin gets below 10 she becomes symptomatic with chest pain. She states that she received an iron transfusion December 06 on December 13 at [facility] She has been seen by cardiology who is recommended currently no further work-up is patient's cardiac symptoms increase She has also been seen by surgery who has recommended colonoscopy and EGD tomorrow as last studies were over 3 years ago. Patient is to receive 2 units of packed red cells today as well as bowel prep. Patient is currently medically stable
[2019-12-23 14:24] LABS: CREATINE KINASE MB 1.26 ng/mL (<4.55)
[2019-12-23 14:25] LABS: TROPONIN I < 0.012 ng/mL
[2019-12-23] MEDS ORDERED: INSULIN GLARGINE,HUM.REC.ANLOG 1,000 UNIT/10 ML VIAL (PYX) SUBCUT PRN (17:30)
[2019-12-23] MEDS ORDERED: GLIPIZIDE XL 5 MG TAB.ER.24 PO SCH (18:00)
[2019-12-23] MEDS: METOPROLOL SUCCINATE 25 MG TAB.SR.24H PO SCH (18:21)
[2019-12-23] MEDS: HYDRALAZINE HCL 50 MG TABLET PO SCH (18:23)
[2019-12-23] MEDS: MINOXIDIL 2.5 MG TABLET PO SCH (18:24)
[2019-12-23 20:10] LABS: HEMATOCRIT 31.3 % (36.0-47.0); MEAN CORPUSCULAR HEMOGLOBIN 31.4 pg (27.0-33.4); MEAN CORPUSCULAR HGB CONC 34.7 g/dL (32.0-36.0); MEAN CORPUSCULAR VOLUME 90 fl (80-97); PLATELET COUNT 178 10^3/uL (150-450); RED BLOOD COUNT 3.46 10^6/uL (3.72-5.28); RED CELL DISTRIBUTION WIDTH 16.4 % (11.5-14.0); WHITE BLOOD COUNT 5.7 10^3/uL (4.0-10.5)
[2019-12-23 20:11] LABS: HEMOGLOBIN 10.9 g/dL (12.0-15.5)
[2019-12-23] MEDS ORDERED: INSULIN GLARGINE,HUM.REC.ANLOG 1,000 UNIT/10 ML VIAL SUBCUT SCH (22:00)
[2019-12-23] MEDS: ATORVASTATIN CALCIUM 80 MG TABLET PO SCH (22:36)
[2019-12-23] MEDS: INSULIN GLARGINE,HUM.REC.ANLOG 1,000 UNIT/10 ML VIAL SUBCUT SCH (22:37)
[2019-12-23] MEDS ORDERED: INSULIN GLARGINE,HUM.REC.ANLOG 1,000 UNIT/10 ML VIAL (PYX) SUBCUT ONE (23:02)
[2019-12-23] MEDS: INSULIN REG, HUMAN 100 UNIT/ML 3 ML VIAL (PYX) SUBCUT SCH (23:13)
[2019-12-24 06:07] LABS: HEMATOCRIT 28.6 % (36.0-47.0); HEMOGLOBIN 10.2 g/dL (12.0-15.5); MEAN CORPUSCULAR HGB CONC 35.5 g/dL (32.0-36.0); MEAN CORPUSCULAR VOLUME 90 fl (80-97); PLATELET COUNT 163 10^3/uL (150-450); RED BLOOD COUNT 3.17 10^6/uL (3.72-5.28); RED CELL DISTRIBUTION WIDTH 16.1 % (11.5-14.0); WHITE BLOOD COUNT 6.7 10^3/uL (4.0-10.5)
[2019-12-24] MEDS: HEPARIN SOD (PORCINE) 5,000 UNIT/ML 1 ML VIAL SUBCUT SCH ×3 (06:11→22:45)
[2019-12-24] MEDS: PANTOPRAZOLE SODIUM 20 MG TABLET.DR PO SCH (06:12)
[2019-12-24 06:31] LABS: CHOLESTEROL 88.73 mg/dL (0-200); TRIGLYCERIDES 98 mg/dL (<150)
[2019-12-24 06:33] LABS: ANION GAP 6 (5-19); BLOOD UREA NITROGEN 36 mg/dL (7-20); CALCIUM 8.8 mg/dL (8.4-10.2); CARBON DIOXIDE 21 mmol/L (22-30); CHLORIDE 111 mmol/L (98-107); GLUCOSE 101 mg/dL (75-110); POTASSIUM 4.2 mmol/L (3.6-5.0)
[2019-12-24 06:41] LABS: DIRECT LDL 47 mg/dL (<100)
[2019-12-24 06:48] LABS: FREE T3 3.15 pg/mL (2.77-5.27)
[2019-12-24 07:01] LABS: THYROID STIMULATING HORMONE 4.77 uIU/mL (0.47-4.68)
[2019-12-24] MEDS: INSULIN REG, HUMAN 100 UNIT/ML 3 ML VIAL (PYX) SUBCUT SCH ×4 (08:23→22:45)
--- NOTE | 2019-12-24 08:27 | PDOC PROGRESS REPORT ---
Subjective Progress Note for:: 12/24/19 Subjective:: ALYSON GARCIA is a 79 year old female with history of hypertension, type 2 diabetes, hyperlipidemia, melena in the past, anemia, stroke several years ago, peripheral vascular disease status post right CEA on 06/29/[address] Burch at [facility], prior history of anemia who is consulted to our service for further evaluation of chest pain. The patient began with chest pain approximately 1 month ago. She describes it as a pressure as well and is regular pain, across the front of her chest, lasting anywhere from 3 to 5 minutes, sometimes so severe that she feels her chest is going to blow open, resolves with rest and deep breathing, recurs mostly at random however it may also be brought on by the use of the upper extremities. She states that she gets this pain when she is anemic and that this has happened several times in the past. Once her hemoglobin goes up all of her chest pain resolves. Of note, her CT surgeon at [facility] started the patient on Plavix due to her peripheral arterial disease however the patient developed dizziness therefore the medication was changed to Brilinta 60 mg twice daily. Upon admission yesterday she was found to be quite hypertensive with an elevated creatinine at 2.8 which is actually close to her baseline which is between 2.1 and 2.2. Of note, her hemoglobin in October 2019 was 12.2 and her LDL was at goal at 67. She feels well from the cardiovascular standpoint this morning and specifically denies chest pain, shortness of breath, SANDY, PND, lower extremity edema, palpitations, syncope and presyncope. Her telemetry today demonstrates normal sinus rhythm. 12/24/2019: The patient had an uneventful night and feels well this morning. She received blood transfusion and her hemoglobin is now much improved. She remains asymptomatic and denies chest pain and anginal equivalents. Of note she had a normal Lexiscan nuclear stress test with [facility] on 10/10/2019. She is n.p.o. and pending colonoscopy and EGD today. Her telemetry demonstrates normal sinus rhythm with episodes of sinus bradycardia. Her creatinine is improved to 2.02 as of this morning. Physical exam on 12/24/2019: GENERAL: Pleasant and conversational. Oriented x3 with normal mood. Not in acute distress. Well groomed and well developed. HEENT: Normocephalic, atraumatic. Pupils equal. Sclerae anicteric. Oropharynx moist. NECK: No JVD. Bruit noted on the left carotid. LUNGS: Clear to auscultation bilaterally. Normal respiratory effort without the use of accessory muscles or intercostal retractions. CARDIOVASCULAR: Regular rate and rhythm, normal S1 and S2 without murmurs, rubs, or gallops. PMI not displaced. ABDOMEN: No masses or tenderness to palpation. No bruit. No splenomegaly or hepatomegaly. No abdominal aorta bruit noted. EXTREMITIES: No edema, no cyanosis, no clubbing. +2 pulses femoral and pedal pulses bilaterally. SKIN: No lesions or rashes. MUSCULOSKELETAL: No chest tenderness to palpation. NEUROLOGIC: Nonfocal. No gross sensory or motor deficits bilateral upper or lower extremities. Cardiac studies: Renal ultrasound on 11/20/2019: -Multiple small cysts in both kidneys. -4.7 cm exophytic cyst arises from the superior pole of the right kidney. -There is thinning of the renal parenchyma in the left kidney. -Increased echogenicity bilaterally which may be due to long history of diabetes and may indicate early findings of chronic renal failure. -Atherosclerotic changes within the abdominal aorta with a small aneurysm noted in the anterior margin of the distal abdominal aorta measuring 10 mm in length. -A few 2 mm gallstones in the dependent portion of the gallbladder. Echocardiogram on 10/09/2018: -LV systolic function is normal. -Mild concentric LVH. -Proximal septal thickening. -Grade 2 diastolic dysfunction. -Markedly elevated left ventricular filling pressures. -Mild MR, moderate PI, trace TR. Lexiscan MPS on 10/10/2019: -No evidence of ischemia or infarct. Reason For Visit: CHEST PAIN,POSITIVE FECAL OCCULT BLOOD Physical Exam Vital Signs: Temp Pulse Resp BP Pulse Ox 97.9 F 59 L 16 136/57 H 97 12/23/19 23:45 12/24/19 02:00 12/23/19 23:45 12/23/19 23:45 12/23/19 20:59 Intake & Output 12/23/19 12/24/19 12/25/19 06:59 06:59 06:59 Intake Total 500 1930 Balance 500 1930 Weight 76.6 kg 78.4 kg Results Laboratory Results: 12/24/19 04:51 12/24/19 04:51 12/23/19 12/23/19 12/24/19 01:17 19:56 04:51 WBC 5.7 6.7 RBC 3.46 L 3.17 L Hgb 10.9 L D 10.2 L Hct 31.3 L 28.6 L MCV 90 90 MCH 31.4 32.0 MCHC 34.7 35.5 RDW 16.4 H 16.1 H Plt Count 178 163 Sodium Potassium Chloride Carbon Dioxide Anion Gap BUN Creatinine Est GFR ( Amer) Glucose Calcium Magnesium Triglycerides Cholesterol LDL Cholesterol Direct VLDL Cholesterol HDL Cholesterol TSH Free T3 pg/mL Blood Type O POSITIVE Antibody Screen NEGATIVE 12/24/19 12/24/19 12/24/19 04:51 04:51 04:51 WBC RBC Hgb Hct MCV MCH MCHC RDW Plt Count Sodium 138.4 Potassium 4.2 Chloride 111 H Carbon Dioxide 21 L Anion Gap 6 BUN 36 H Creatinine 2.02 H Est GFR ( Amer) 29 L Glucose 101 Calcium 8.8 Magnesium 2.0 Triglycerides 98 Cholesterol 88.73 LDL Cholesterol Direct 47 VLDL Cholesterol 20.0 HDL Cholesterol 30 L TSH 4.77 H Free T3 pg/mL 3.15 Blood Type Antibody Screen 12/22/19 12/23/19 12/23/19 22:54 01:59 01:59 Creatine Kinase 59 CK-MB (CK-2) Troponin I < 0.012 Cancelled 12/23/19 12/23/19 12/23/19 01:59 08:10 08:10 Creatine Kinase 51 CK-MB (CK-2) 0.87 1.10 Troponin I < 0.012 < 0.012 12/23/19 12/23/19 13:46 13:46 Creatine Kinase 65 CK-MB (CK-2) 1.26 Troponin I < 0.012 Impressions: 12/24/19 04:51 12/24/19 04:51 MCV 90 fl (80-97) 12/24/19 04:51 MCH 32.0 pg (27.0-33.4) 12/24/19 04:51 MCHC 35.5 g/dL (32.0-36.0) 12/24/19 04:51 RDW 16.1 % (11.5-14.0) H 12/24/19 04:51 Seg Neutrophils % 63.0 % (42-78) 12/22/19 22:54 Chloride 111 mmol/L (98-107) H 12/24/19 04:51 Carbon Dioxide 21 mmol/L (22-30) L 12/24/19 04:51 Anion Gap 6 (5-19) 12/24/19 04:51 Est GFR ( Amer) 29 (>60) L 12/24/19 04:51 Glucose 101 mg/dL (75-110) 12/24/19 04:51 Calcium 8.8 mg/dL (8.4-10.2) 12/24/19 04:51 Magnesium 2.0 mg/dL (1.6-2.3) 12/24/19 04:51 Total Bilirubin 0.2 mg/dL (0.2-1.3) 12/22/19 22:54 AST 26 U/L (14-36) 12/22/19 22:54 Alkaline Phosphatase 115 U/L (38-126) 12/22/19 22:54 Total Protein 7.0 g/dL (6.3-8.2) 12/22/19 22:54 Albumin 4.0 g/dL (3.5-5.0) 12/22/19 22:54 Triglycerides 98 mg/dL (<150) 12/24/19 04:51 Cholesterol 88.73 mg/dL (0-200) 12/24/19 04:51 LDL Cholesterol Direct 47 mg/dL (<100) 12/24/19 04:51 VLDL Cholesterol 20.0 mg/dL (10-31) 12/24/19 04:51 HDL Cholesterol 30 mg/dL (>40) L 12/24/19 04:51 Lipase 382.8 U/L (23-300) H 12/22/19 22:54 TSH 4.77 uIU/mL (0.47-4.68) H 12/24/19 04:51 Free T3 pg/mL 3.15 pg/mL (2.77-5.27) 12/24/19 04:51 Urine Color STRAW 12/23/19 03:28 Urine Appearance CLEAR 12/23/19 03:28 Urine pH 6.0 (5.0-9.0) 12/23/19 03:28 Ur Specific [place] 1.011 12/23/19 03:28 Urine Protein 100 mg/dL (NEGATIVE) H 12/23/19 03:28 Urine Glucose (UA) 150 mg/dL (NEGATIVE) H 12/23/19 03:28 Urine Ketones NEGATIVE mg/dL (NEGATIVE) 12/23/19 03:28 Urine Blood NEGATIVE (NEGATIVE) 12/23/19 03:28 Urine Nitrite NEGATIVE (NEGATIVE) 12/23/19 03:28 Ur Leukocyte Esterase TRACE (NEGATIVE) H 12/23/19 03:28 Urine WBC (Auto) 1 /HPF 12/23/19 03:28 Urine RBC (Auto) 0 /HPF 12/23/19 03:28 Blood Type O POSITIVE 12/23/19 01:17 Antibody Screen NEGATIVE 12/23/19 01:17 12/22/19 12/23/19 12/23/19 22:54 01:59 01:59 Creatine Kinase 59 CK-MB (CK-2) Troponin I < 0.012 Cancelled 12/23/19 12/23/19 12/23/19 01:59 08:10 08:10 Creatine Kinase 51 CK-MB (CK-2) 0.87 1.10 Troponin I < 0.012 < 0.012 12/23/19 12/23/19 13:46 13:46 Creatine Kinase 65 CK-MB (CK-2) 1.26 Troponin I < 0.012 Current Medication List Generic Name Dose Route Start Last Admin Trade Name Freelier PRN Reason Stop Dose Admin Acetaminophen 650 mg 12/23/19 02:19 Tylenol 325 Mg Tablet PO 01/22/20 02:18 Q4HP PRN For headache, pain or fever Al Hydrox/Mg Hydrox/Simethicone 30 ml 12/23/19 02:13 Maalox Plus Susp 30 Udcup PO 01/22/20 02:12 Q6HP PRN HEARTBURN Amlodipine Besylate 10 mg 12/23/19 10:00 12/23/19 12:14 Norvasc 10 Mg Tablet PO 01/22/20 09:59 10 mg DAILY DOUGIE Administration Atorvastatin Calcium 80 mg 12/23/19 22:00 12/23/19 22:36 Lipitor 80 Mg Tablet PO 01/22/20 21:59 80 mg QHS DOUGIE Administration Dextrose 12.5 gm 12/23/19 02:20 Dextrose Inj 50% Syringe (25 Gm/50 Ml) IV 01/22/20 02:19 PRN PRN FOR BG 50-69 IN ALERT PATIENT Protocol Dextrose 25 gm 12/23/19 02:20 Dextrose Inj 50% Syringe (25 Gm/50 Ml) IV 01/22/20 02:19 PRN PRN PER PROTOCOL Protocol Docusate Sodium 100 mg 12/23/19 10:00 12/23/19 17:38 Colace 100 Mg Capsule PO 01/22/20 09:59 Not Given BID DOUGIE Ezetimibe 10 mg 12/24/19 10:00 Zetia 10 Mg Tablet PO 01/23/20 09:59 DAILY DOUGIE Furosemide 20 mg 12/24/19 10:00 Lasix 20 Mg Tablet PO 01/23/20 09:59 DAILY [facility] Glipizide 10 mg 12/23/19 18:00 12/23/19 17:36 Glucotrol Xl 5 Mg Tab.Er PO 01/22/20 17:59 Not Given BID DOUGIE Glucagon 1 mg 12/23/19 02:20 Glucagen Inj 1 Mg Vial IM 01/22/20 02:19 PRN PRN Evaluate for BG < 70 Protocol Glucose 15 gm 12/23/19 02:20 Glutose 40% Gel 15 Gm Tube PO 01/22/20 02:19 PRN PRN FOR BG 50-69 IN ALERT PATIENT Protocol Glucose 30 gm 12/23/19 02:20 Glutose 40% Gel 15 Gm Tube PO 01/22/20 02:19 PRN PRN FOR BG < 50 IN ALERT PATIENT Protocol Heparin Sodium (Porcine) 5,000 unit 12/23/19 06:00 12/24/19 06:11 Heparin Inj 5,000 Units/Ml 1 Ml Vial SUBCUT 01/22/20 05:59 Not Given Q8 DOUGIE Hydralazine HCl 20 mg 12/23/19 02:20 Apresoline Inj/Pf 20 Mg/1 Ml Sdv IV 01/22/20 02:19 Q4HP PRN Give For Sbp > 160 / Dbp > 100 Hydralazine HCl 100 mg 12/23/19 18:00 12/23/19 18:23 Apresoline 50 Mg Tablet PO 01/22/20 17:59 100 mg BID DOUGIE Administration Lactated Ringer's 1,000 mls @ 60 mls/hr 12/23/19 02:13 Lactated Ringers 1000 Ml Iv Soln IV CONTINUOUS PRN THIS MED IS NOT "PRN" Insulin Glargine 10 unit 12/23/19 22:00 12/23/19 22:37 Lantus Insulin 100 Unit/1 Ml 10 Ml SUBCUT 01/22/20 21:59 10 unit QHS DOUGIE Administration Insulin Human Regular 0 - 15 unit 12/23/19 22:00 12/23/19 23:13 Humulin R (Pyxis) Insulin 100 Unit/Ml 3ml SUBCUT 01/22/20 02:18 Not Given ACHS [facility] Protocol Levalbuterol HCl 0.63 mg 12/23/19 02:13 Xopenex Neb 0.63 Mg/3 Ml Ampul NEB 01/22/20 02:12 RTQ2HP PRN SHORTNESS OF BREATH Lorazepam 1 mg 12/23/19 02:19 Ativan Inj 2 Mg/1 Ml Vial IV 12/30/19 02:18 Q4HP PRN ANXIETY/AGITATION Losartan Potassium 50 mg 12/23/19 18:00 12/23/19 18:24 Cozaar 50 Mg Tablet PO 01/22/20 17:59 50 mg BID [facility] Administration Magnesium Hydroxide 30 ml 12/23/19 02:13 Milk Of Magnesia 30 Ml Udcup PO 01/22/20 02:12 HSP PRN FOR CONSTIPATION Metoprolol Succinate 25 mg 12/23/19 17:00 12/23/19 18:21 Toprol Xl 25 Mg Tab.Sr PO 01/22/20 16:59 Not Given DAILY DOUGIE Minoxidil 2.5 mg 12/23/19 18:00 12/23/19 18:24 Loniten 2.5 Mg Tablet PO 01/22/20 17:59 2.5 mg BID [facility] Administration Morphine Sulfate 2 mg 12/23/19 02:19 Morphine 10 Mg/Ml Inj IV 12/30/19 02:18 Q2HP PRN FOR PAIN SCALE 1-2 Morphine Sulfate 3 mg 12/23/19 02:19 Morphine 10 Mg/Ml Inj IV 12/30/19 02:18 Q2HP PRN FOR PAIN SCALE 3-4 Morphine Sulfate 4 mg 12/23/19 02:19 Morphine 10 Mg/Ml Inj IV 12/30/19 02:18 Q2HP PRN PAIN SCALE OF 5 Nicotine 1 each 12/23/19 02:19 Nicoderm 21 Mg/24 Hr Transderm Patch TD 01/22/20 02:18 DAILYP PRN WITHDRAWAL SYMPTOMS Ondansetron HCl 4 mg 12/23/19 02:13 Zofran Inj/Pf 4 Mg/2 Ml Sdv IV 01/22/20 02:12 Q4HP PRN FOR NAUSEA/VOMITING Pantoprazole Sodium 20 mg 12/23/19 06:00 12/24/19 06:[address] Tablet PO 01/22/20 05:59 Not Given Q6AM DOUGIE Sodium Chloride 2.5 ml 12/23/19 06:00 12/24/19 06:07 Saline Flush 2.5 Ml Monoject Prefil Syrin IV 01/22/20 05:59 2.5 ml Q8 DOUGIE Administration Discontinued Medications Generic Name Dose Route Start Last Admin Trade Name Freq PRN Reason Stop Dose Admin Acetaminophen 650 mg 12/23/19 05:54 12/23/19 08:46 Tylenol 325 Mg Tablet PO 12/24/19 05:53 650 mg .BEFORE TRANSFUSION PRN Administration THIS MED IS NOT "PRN" Bisacodyl 20 mg 12/23/19 11:30 12/23/19 12:14 Dulcolax 5 Mg Tablet PO 12/23/19 11:31 20 mg NOW ONE Administration Diphenhydramine HCl 25 mg 12/23/19 05:54 12/23/19 08:46 Benadryl 25 Mg Capsule PO 12/24/19 05:53 25 mg .BEFORE TRANSFUSION PRN Administration THIS MED IS NOT "PRN" Furosemide 10 mg 12/23/19 05:54 12/23/19 12:13 Lasix Inj/Pf 20 Mg/2 Ml Sdv IV 12/24/19 05:53 10 mg .AFTER FIRST UNIT PRN Administration THIS MED IS NOT "PRN" Furosemide 20 mg 12/23/19 10:00 12/23/19 12:14 Lasix 20 Mg Tablet PO 01/22/20 09:59 20 mg DAILY DOUGIE Administration Glipizide 10 mg 12/23/19 10:00 12/23/19 17:36 Glucotrol Xl 5 Mg Tab.Er PO 01/22/20 09:59 Not Given BID DOUGIE Hydralazine HCl 100 mg 12/23/19 10:00 12/23/19 12:14 Apresoline 50 Mg Tablet PO 01/22/20 09:59 100 mg BID DOUGIE Administration Sodium Chloride 500 mls @ 0 mls/hr 12/23/19 00:31 12/23/19 02:54 Nacl 0.9% 500 Ml Iv Soln IV 12/23/19 00:32 Infused NOW ONE Infusion Wide Open Sodium Chloride 250 mls @ 30 mls/hr 12/23/19 05:54 Nacl 0.9% 250 Ml Iv Soln IV 12/24/19 05:53 .DURING TRANSFUSION PRN THIS MED IS NOT "PRN" Sodium Chloride 250 mls @ 0 mls/hr 12/23/19 05:54 Nacl 0.9% 250 Ml Iv Soln IV 12/24/19 05:53 CONTINUOUS PRN AFTER EACH UNIT As Directed Insulin Glargine 10 unit 12/23/19 22:00 Lantus Insulin 100 Unit/1 Ml 10 Ml SUBCUT 01/22/20 21:59 QHS ODUGIE Insulin Glargine 10 unit 12/23/19 17:30 Lantus (Pyxis) Insulin 100 Unit/1 Ml 10 Ml SUBCUT 12/24/19 07:00 ASDIR PRN Insulin Glargine Confirm 12/23/19 23:02 12/23/19 21:30 Lantus (Pyxis) Insulin 100 Unit/1 Ml 10 Ml Administered 12/23/19 23:03 Not Given Dose 1 unit SUBCUT .STK-MED ONE Insulin Human Regular 0 - 15 unit 12/23/19 02:19 12/23/19 12:16 Humulin R (Pyxis) Insulin 100 Unit/Ml 3ml SUBCUT 01/22/20 02:18 5 unit ACHSP PRN Administration PER PROTOCOL Protocol Losartan Potassium 50 mg 12/23/19 10:00 12/23/19 12:13 Cozaar 50 Mg Tablet PO 01/22/20 09:59 50 mg BID DOUGIE Administration Metoprolol Succinate 25 mg 12/23/19 10:00 12/23/19 12:14 Toprol Xl 25 Mg Tab.Sr PO 01/22/20 09:59 25 mg DAILY DOUGIE Administration Minoxidil 2.5 mg 12/23/19 10:00 12/23/19 12:17 Loniten 2.5 Mg Tablet PO 01/22/20 09:59 2.5 mg BID DOUGIE Administration Polyethylene Glycol 255 gm 12/23/19 12:00 12/23/19 12:15 Miralax Powder 17 Gm/Packet PO 12/23/19 12:01 255 gm NOW ONE Administration Assessment & Plan - Diagnosis (1) Chest pain Qualifiers: Chest pain type: other chest pain Qualified Code(s): R07.89 - Other chest pain; R07.8 - Other chest pain Plan: The patient remains asymptomatic since admission. She states that she has been getting this chest pain on a regular basis when she is anemic which currently she is after having melena. Her cardiac troponins are negative x2 and she had a normal Lexiscan nuclear stress test in October 2018. It is likely that her chest pain is secondary to demand related ischemia secondary to her low hemoglobin. She endorses melena recently and is scheduled to undergo EGD/colonoscopy today. Her Brilinta and baby aspirin were discontinued secondary to her melena. Her echocardiogram in October 2018 was most significant for a normal ejection fraction and grade 2 diastolic dysfunction. Recommendations: -Continue with cardiac telemetry. -Continue holding aspirin and Brilinta until GI work-up is completed. -Sublingual nitroglycerin if chest pain recurs. -No further ischemic work-up yet. -Would consider left heart catheterization if the patient has exertional angina after her hemoglobin is back to her normal. (2) Acute renal insufficiency Plan: Her renal function is improved this morning. Will defer further management to her primary team. (3) Symptomatic anemia Plan: Appears to be secondary to a GI etiology. The patient denies recurrence of chest pain. She received blood transfusion and feels much better. She is scheduled to undergo EGD and colonoscopy this morning. Recommendations: -Further management per primary team. (4) Hypertension Qualifiers: Hypertension type: essential hypertension Qualified Code(s): I10 - Essential (primary) hypertension Plan: Her blood pressure is close to her goal. Recommendations: -Optimize outpatient medical regimen. -Further management per primary team. (5) Peripheral arterial disease Plan: The patient has a left carotid bruit and she is status post right CEA on 06/29/2017. She denies new neurological complaints. Her most recent carotid ultrasound in September 2019 demonstrated a 70 to 99% narrowing of the proximal left internal carotid artery which appears unchanged from a prior study on 07/20/2018. Recommendations: -Continue with current medical management. -Continue to follow-up with CT surgery at [facility]. -Resume Brilinta and aspirin as soon as cleared by GI/surgery.
[2019-12-24] MEDS ORDERED: PROMETHAZINE HCL INJ 25 MG/1 ML VIAL IV PRN (10:21)
[2019-12-24] MEDS ORDERED: DIPHENHYDRAMINE HCL 50 MG/ML VIAL IV PRN (10:21)
[2019-12-24] MEDS ORDERED: ONDANSETRON HCL INJ/PF 4 MG/2 ML SDV IV PRN ×2 (10:21→10:30)
[2019-12-24] MEDS ORDERED: ACETAMINOPHEN 325 MG TABLET PO PRN (10:27)
--- NOTE | 2019-12-24 10:51 | PDOC PROGRESS REPORT ---
Subjective Progress Note for:: 12/24/19 Reason For Visit: CHEST PAIN,POSITIVE FECAL OCCULT BLOOD 12/24/2019 Admitted for GI bleed, symptomatic anemia Physical Exam Vital Signs: Temp Pulse Resp BP Pulse Ox 97.9 F 53 L 18 151/47 H 96 12/24/19 08:56 12/24/19 08:56 12/24/19 08:56 12/24/19 08:56 12/24/19 08:56 Intake & Output 12/23/19 12/24/19 12/25/19 06:59 06:59 06:59 Intake Total 500 1930 Balance 500 1930 Weight 76.6 kg 78.4 kg General appearance: PRESENT: no acute distress, other - Up and ambulatory prior to GI studies Respiratory exam: PRESENT: clear to auscultation tenisha. ABSENT: rales, rhonchi, wheezes Cardiovascular exam: PRESENT: RRR. ABSENT: diastolic murmur, rubs, systolic murmur Neurological exam: PRESENT: alert, awake, oriented to person, oriented to place, oriented to time, oriented to situation, CN II-XII grossly intact. ABSENT: motor sensory deficit Psychiatric exam: PRESENT: appropriate affect, normal mood. ABSENT: homicidal ideation, suicidal ideation Results Laboratory Results: 12/24/19 04:51 12/24/19 04:51 12/23/19 12/23/19 12/24/19 01:17 19:56 04:51 WBC 5.7 6.7 RBC 3.46 L 3.17 L Hgb 10.9 L D 10.2 L Hct 31.3 L 28.6 L MCV 90 90 MCH 31.4 32.0 MCHC 34.7 35.5 RDW 16.4 H 16.1 H Plt Count 178 163 Sodium Potassium Chloride Carbon Dioxide Anion Gap BUN Creatinine Est GFR ( Amer) Glucose Calcium Magnesium Triglycerides Cholesterol LDL Cholesterol Direct VLDL Cholesterol HDL Cholesterol TSH Free T3 pg/mL Blood Type O POSITIVE Antibody Screen NEGATIVE 12/24/19 12/24/19 12/24/19 04:51 04:51 04:51 WBC RBC Hgb Hct MCV MCH MCHC RDW Plt Count Sodium 138.4 Potassium 4.2 Chloride 111 H Carbon Dioxide 21 L Anion Gap 6 BUN 36 H Creatinine 2.02 H Est GFR ( Amer) 29 L Glucose 101 Calcium 8.8 Magnesium 2.0 Triglycerides 98 Cholesterol 88.73 LDL Cholesterol Direct 47 VLDL Cholesterol 20.0 HDL Cholesterol 30 L TSH 4.77 H Free T3 pg/mL 3.15 Blood Type Antibody Screen 12/22/19 12/23/19 12/23/19 22:54 01:59 01:59 Creatine Kinase 59 CK-MB (CK-2) Troponin I < 0.012 Cancelled 12/23/19 12/23/19 12/23/19 01:59 08:10 08:10 Creatine Kinase 51 CK-MB (CK-2) 0.87 1.10 Troponin I < 0.012 < 0.012 12/23/19 12/23/19 13:46 13:46 Creatine Kinase 65 CK-MB (CK-2) 1.26 Troponin I < 0.012 Assessment and Plan - Diagnosis (1) Chest pain Qualifiers: Chest pain type: other chest pain Qualified Code(s): R07.89 - Other chest pain; R07.8 - Other chest pain Is this a current diagnosis for this admission?: Yes (2) Diabetes mellitus type 2 in nonobese Is this a current diagnosis for this admission?: Yes (3) Hypertension Qualifiers: Hypertension type: essential hypertension Qualified Code(s): I10 - Es sential (primary) hypertension Is this a current diagnosis for this admission?: Yes (4) Melena Is this a current diagnosis for this admission?: Yes (5) Peripheral arterial disease Is this a current diagnosis for this admission?: Yes (6) Positive fecal occult blood test Is this a current diagnosis for this admission?: Yes (7) Symptomatic anemia Is this a current diagnosis for this admission?: Yes - Plan Summary Summary: Patient will be admitted to the telemetry floor where she will receive routine supportive and symptomatic cares. Serial cardiac enzymes will be obtained. Patient will receive 2 units of packed red blood cells as treatment of her symptomatic anemia despite her hemoglobin being greater than 8. A cardiology consultation with Dr. Orozco will be obtained. A nephrology consult will be obtained as soon as nephrology services are once again available. Patient will use morphine sulfate 2 to 4 mg IV every 2 hours as needed for pain. She will use Ativan 1 mg IV every 4 hours as needed for anxiety or restlessness. She will be continued on her usual home medications, as appropriate, once her medical list has been verified and reconciled. She will be on a cardiac and diabetic restricted diet. Before meals and at bedtime Accu-Cheks will be obtained with sliding scale insulin used to cover hyperglycemia and a hypoglycemic protocol in place. A surgical consultation with Dr. Valerio will be obtained for evaluation of her guaiac positive stool. 12/24/2019 This morning temperature 97.9 pulse is 54 blood pressure 136/57 Hemoglobin on admission was 8.4 today it is 10.2. Platelets on admission 225 today 163 BUN is improved from 45-36 creatinine has improved from 2.28-2.02 A1c is stable at 5.0 Patient is scheduled for upper and lower endoscopy today.. She does not need any discharge planning when she is cleared to go home Patient appears to be medically stable at this time from the cardiology standpoint however may need a work-up as an outpatient Blood pressures appear to be well controlled - Time Time Spent with patient: 15-24 minutes
[2019-12-24] MEDS ORDERED: LIDOCAINE 2% INJ-PF (100 MG/5 ML) SYRINGE ONE (11:14)
[2019-12-24] MEDS ORDERED: PROPOFOL INJ 200 MG/20 ML VIAL IV ONE (11:14)
[2019-12-24] MEDS ORDERED: EPHEDRINE SULFATE INJ 50 MG/1 ML AMPULE ONE (11:48)
--- NOTE | 2019-12-24 12:29 | Operative Report ---
Nonrecallable Operative Report DATE OF SURGERY: 12/24/19 PREOPERATIVE DIAGNOSIS: Guaiac positive stool POSTOPERATIVE DIAGNOSIS: Guaiac positive stool OPERATION: Esophago-gastroduodenoscopy and colonoscopy SURGEON: PAULINA ZAMBRANO ANESTHESIA: LMAC TISSUE REMOVED OR ALTERED: None COMPLICATIONS: None ESTIMATED BLOOD LOSS: 0 INTRAOPERATIVE FINDINGS: Descending and sigmoid diverticulosis PROCEDURE: Patient was brought to the operating room awake alert in stable condition procedure was done on the transport gurney she was placed in a left lateral decubitus position after being given sedation by anesthesia. A timeout was obtained. We used the first procedure was a esophagogastroduodenoscopy. The Olympus gastroscope was passed into the posterior pharynx and easily traversed the upper esophageal sphincters into the esophagus. There is mild distal esophagitis as we entered the stomach we noted the antrum to be normal without evidence of mucosal abnormalities the body and antrum were visualized and it appeared to be normal. We I would identified the pylorus and traversed portion to the duodenum there was mild duodenitis. As we slowly withdrew the scope into the duodenal bulb there was no evidence of any ulcerations. Scope was then retroflexed and we examined the proximal stomach and noted a small hiatal hernia and normal fundus. The scope was then slowly withdrawn again through the esophagus noting the distal esophagitis. The scope was completely withdrawn. Attention was then turned to the colonoscopy. The Olympus colonoscope was passed into the rectum and E and traversed the rectosigmoid junction into the descending colon as we slowly advance the scope past the splenic flexure through the transverse colon keeping the lumen in view. We then traversed the hepatic flexure into the descending colon and noted the cecum. We slowly withdrew the scope examining all the: Circumferentially I noted no evidence mucosal abnormalities in the descending colon sigmoid colon or rectum. There were some scattered diverticulosis in the sigmoid colon and descending colon. There were no masses no evidence of bleeding. Impression mild duodenitis Mild distal esophagitis. Descending and sigmoid scattered diverticulosis No obvious ongoing bleeding.
[2019-12-24] MEDS: DOCUSATE SODIUM 100 MG CAPSULE PO SCH ×2 (13:43→17:49)
[2019-12-24] MEDS: FUROSEMIDE 20 MG TABLET PO SCH (13:53)
[2019-12-24] MEDS: EZETIMIBE 10 MG TABLET PO SCH (13:53)
[2019-12-24] MEDS: AMLODIPINE BESYLATE 10 MG TABLET PO SCH (13:53)
[2019-12-24] MEDS: METOPROLOL SUCCINATE 25 MG TAB.SR.24H PO SCH (13:53)
[2019-12-24] MEDS: HYDRALAZINE HCL 50 MG TABLET PO SCH ×2 (13:53→17:54)
[2019-12-24] MEDS: MINOXIDIL 2.5 MG TABLET PO SCH ×2 (13:53→17:54)
[2019-12-24] MEDS: GLIPIZIDE XL 5 MG TAB.ER.24 PO SCH (22:44)
[2019-12-24] MEDS: ATORVASTATIN CALCIUM 80 MG TABLET PO SCH (22:45)
[2019-12-24] MEDS: LOSARTAN POTASSIUM 50 MG TABLET PO SCH (22:45)
[2019-12-24] MEDS: INSULIN GLARGINE,HUM.REC.ANLOG 1,000 UNIT/10 ML VIAL SUBCUT SCH (22:46)
[2019-12-25] MEDS: PANTOPRAZOLE SODIUM 20 MG TABLET.DR PO SCH (06:09)
[2019-12-25] MEDS: HEPARIN SOD (PORCINE) 5,000 UNIT/ML 1 ML VIAL SUBCUT SCH (06:09)
[2019-12-25 06:34] LABS: HEMATOCRIT 31.5 % (36.0-47.0); HEMOGLOBIN 10.9 g/dL (12.0-15.5); MEAN CORPUSCULAR HEMOGLOBIN 31.5 pg (27.0-33.4); MEAN CORPUSCULAR HGB CONC 34.7 g/dL (32.0-36.0); MEAN CORPUSCULAR VOLUME 91 fl (80-97); PLATELET COUNT 171 10^3/uL (150-450); RED BLOOD COUNT 3.47 10^6/uL (3.72-5.28); RED CELL DISTRIBUTION WIDTH 16.7 % (11.5-14.0)
[2019-12-25 06:55] LABS: ANION GAP 6 (5-19); BLOOD UREA NITROGEN 34 mg/dL (7-20); CALCIUM 9.4 mg/dL (8.4-10.2); CARBON DIOXIDE 23 mmol/L (22-30); CHLORIDE 108 mmol/L (98-107); GLUCOSE 73 mg/dL (75-110); POTASSIUM 3.9 mmol/L (3.6-5.0)
[2019-12-25] MEDS: INSULIN REG, HUMAN 100 UNIT/ML 3 ML VIAL (PYX) SUBCUT SCH ×2 (09:21→12:27)
[2019-12-25] MEDS: HYDRALAZINE HCL 50 MG TABLET PO SCH (10:25)
[2019-12-25] MEDS: METOPROLOL SUCCINATE 25 MG TAB.SR.24H PO SCH (10:26)
[2019-12-25] MEDS: AMLODIPINE BESYLATE 10 MG TABLET PO SCH (10:27)
[2019-12-25] MEDS: DOCUSATE SODIUM 100 MG CAPSULE PO SCH (10:27)
[2019-12-25] MEDS: LOSARTAN POTASSIUM 50 MG TABLET PO SCH (10:27)
[2019-12-25] MEDS: GLIPIZIDE XL 5 MG TAB.ER.24 PO SCH (10:55)
[2019-12-25] MEDS: FUROSEMIDE 20 MG TABLET PO SCH (10:55)
[2019-12-25] MEDS: EZETIMIBE 10 MG TABLET PO SCH (10:55)
[2019-12-25] MEDS: MINOXIDIL 2.5 MG TABLET PO SCH (10:56)
--- NOTE | 2019-12-25 10:57 | PDOC PROGRESS REPORT ---
Subjective Progress Note for:: 12/25/19 Subjective:: ALYSON GARCIA is a 79 year old female with history of hypertension, type 2 diabetes, hyperlipidemia, melena in the past, anemia, stroke several years ago, peripheral vascular disease status post right CEA on 06/29/[address] Burch at [facility], prior history of anemia who is consulted to our service for further evaluation of chest pain. The patient began with chest pain approximately 1 month ago. She describes it as a pressure as well and is regular pain, across the front of her chest, lasting anywhere from 3 to 5 minutes, sometimes so severe that she feels her chest is going to blow open, resolves with rest and deep breathing, recurs mostly at random however it may also be brought on by the use of the upper extremities. She states that she gets this pain when she is anemic and that this has happened several times in the past. Once her hemoglobin goes up all of her chest pain resolves. Of note, her CT surgeon at [facility] started the patient on Plavix due to her peripheral arterial disease however the patient developed dizziness therefore the medication was changed to Brilinta 60 mg twice daily. Upon admission yesterday she was found to be quite hypertensive with an elevated creatinine at 2.8 which is actually close to her baseline which is between 2.1 and 2.2. Of note, her hemoglobin in October 2019 was 12.2 and her LDL was at goal at 67. She feels well from the cardiovascular standpoint this morning and specifically denies chest pain, shortness of breath, SANDY, PND, lower extremity edema, palpitations, syncope and presyncope. Her telemetry today demonstrates normal sinus rhythm. 12/25/2019: The patient had an uneventful night and feels well this morning. She denies recurrence of index chest pain since her hemoglobin came back up to 10.9. Her colonoscopy and EGD yesterday did not reveal an active bleeding source. Her creatinine is 2.4 which is the same rating as the last one in the outpatient setting on 10/10/2019. Of note she had a normal Lexiscan nuclear stress test with [facility] on 10/09/2018. Her telemetry demonstrates normal sinus rhythm with episodes of sinus bradycardia. Her LDL as of October 2019 was at goal at 67. Physical exam on 12/25/2019: GENERAL: Pleasant and conversational. Oriented x3 with normal mood. Not in acute distress. Well groomed and well developed. HEENT: Normocephalic, atraumatic. Pupils equal. Sclerae anicteric. Oropharynx moist. NECK: No JVD. Bruit noted on the left carotid. LUNGS: Clear to auscultation bilaterally. Normal respiratory effort without the use of accessory muscles or intercostal retractions. CARDIOVASCULAR: Regular rate and rhythm, normal S1 and S2 without murmurs, rubs, or gallops. PMI not displaced. ABDOMEN: No masses or tenderness to palpation. No bruit. No splenomegaly or hepatomegaly. No abdominal aorta bruit noted. EXTREMITIES: No edema, no cyanosis, no clubbing. +2 pulses femoral and pedal pulses bilaterally. SKIN: No lesions or rashes. MUSCULOSKELETAL: No chest tenderness to palpation. NEUROLOGIC: Nonfocal. No gross sensory or motor deficits bilateral upper or lower extremities. Cardiac studies: Renal ultrasound on 11/20/2019: -Multiple small cysts in both kidneys. -4.7 cm exophytic cyst arises from the superior pole of the right kidney. -There is thinning of the renal parenchyma in the left kidney. -Increased echogenicity bilaterally which may be due to long history of diabetes and may indicate early findings of chronic renal failure. -Atherosclerotic changes within the abdominal aorta with a small aneurysm noted in the anterior margin of the distal abdominal aorta measuring 10 mm in length. -A few 2 mm gallstones in the dependent portion of the gallbladder. Echocardiogram on 10/09/2018: -LV systolic function is normal. -Mild concentric LVH. -Proximal septal thickening. -Grade 2 diastolic dysfunction. -Markedly elevated left ventricular filling pressures. -Mild MR, moderate PI, trace TR. Lexiscan MPS on 10/09/2018: -No evidence of ischemia or infarct. Reason For Visit: CHEST PAIN,POSITIVE FECAL OCCULT BLOOD Physical Exam Vital Signs: Temp Pulse Resp BP Pulse Ox 97.7 F 58 L 18 145/44 H 97 12/24/19 23:09 12/25/19 02:00 12/24/19 23:09 12/24/19 23:09 12/24/19 23:09 Intake & Output 12/24/19 12/25/19 12/26/19 06:59 06:59 06:59 Intake Total 1930 1303 Output Total 0 Balance 1929 1303 Weight 78.4 kg 76.9 kg Results Laboratory Results: 12/25/19 05:53 12/25/19 05:53 12/25/19 12/25/19 05:53 05:53 WBC 6.0 RBC 3.47 L Hgb 10.9 L Hct 31.5 L MCV 91 MCH 31.5 MCHC 34.7 RDW 16.7 H Plt Count 171 Sodium 136.9 L Potassium 3.9 Chloride 108 H Carbon Dioxide 23 Anion Gap 6 BUN 34 H Creatinine 2.43 H Est GFR ( Amer) 23 L Glucose 73 L Calcium 9.4 12/22/19 12/23/19 12/23/19 22:54 01:59 01:59 Creatine Kinase 59 CK-MB (CK-2) Troponin I < 0.012 Cancelled 12/23/19 12/23/19 12/23/19 01:59 08:10 08:10 Creatine Kinase 51 CK-MB (CK-2) 0.87 1.10 Troponin I < 0.012 < 0.012 12/23/19 12/23/19 13:46 13:46 Creatine Kinase 65 CK-MB (CK-2) 1.26 Troponin I < 0.012 Impressions: 12/25/19 05:53 12/25/19 05:53 MCV 91 fl (80-97) 12/25/19 05:53 MCH 31.5 pg (27.0-33.4) 12/25/19 05:53 MCHC 34.7 g/dL (32.0-36.0) 12/25/19 05:53 RDW 16.7 % (11.5-14.0) H 12/25/19 05:53 Seg Neutrophils % 63.0 % (42-78) 12/22/19 22:54 Chloride 108 mmol/L (98-107) H 12/25/19 05:53 Carbon Dioxide 23 mmol/L (22-30) 12/25/19 05:53 Anion Gap 6 (5-19) 12/25/19 05:53 Est GFR ( Amer) 23 (>60) L 12/25/19 05:53 Glucose 73 mg/dL (75-110) L 12/25/19 05:53 Calcium 9.4 mg/dL (8.4-10.2) 12/25/19 05:53 Magnesium 2.0 mg/dL (1.6-2.3) 12/24/19 04:51 Total Bilirubin 0.2 mg/dL (0.2-1.3) 12/22/19 22:54 AST 26 U/L (14-36) 12/22/19 22:54 Alkaline Phosphatase 115 U/L (38-126) 12/22/19 22:54 Total Protein 7.0 g/dL (6.3-8.2) 12/22/19 22:54 Albumin 4.0 g/dL (3.5-5.0) 12/22/19 22:54 Triglycerides 98 mg/dL (<150) 12/24/19 04:51 Cholesterol 88.73 mg/dL (0-200) 12/24/19 04:51 LDL Cholesterol Direct 47 mg/dL (<100) 12/24/19 04:51 VLDL Cholesterol 20.0 mg/dL (10-31) 12/24/19 04:51 HDL Cholesterol 30 mg/dL (>40) L 12/24/19 04:51 Lipase 382.8 U/L (23-300) H 12/22/19 22:54 TSH 4.77 uIU/mL (0.47-4.68) H 12/24/19 04:51 Free T3 pg/mL 3.15 pg/mL (2.77-5.27) 12/24/19 04:51 Urine Color STRAW 12/23/19 03:28 Urine Appearance CLEAR 12/23/19 03:28 Urine pH 6.0 (5.0-9.0) 12/23/19 03:28 Ur Specific Llewellyn 1.011 12/23/19 03:28 Urine Protein 100 mg/dL (NEGATIVE) H 12/23/19 03:28 Urine Glucose (UA) 150 mg/dL (NEGATIVE) H 12/23/19 03:28 Urine Ketones NEGATIVE mg/dL (NEGATIVE) 12/23/19 03:28 Urine Blood NEGATIVE (NEGATIVE) 12/23/19 03:28 Urine Nitrite NEGATIVE (NEGATIVE) 12/23/19 03:28 Ur Leukocyte Esterase TRACE (NEGATIVE) H 12/23/19 03:28 Urine WBC (Auto) 1 /HPF 12/23/19 03:28 Urine RBC (Auto) 0 /HPF 12/23/19 03:28 Blood Type O POSITIVE 12/23/19 01:17 Antibody Screen NEGATIVE 12/23/19 01:17 12/22/19 12/23/19 12/23/19 22:54 01:59 01:59 Creatine Kinase 59 CK-MB (CK-2) Troponin I < 0.012 Cancelled 12/23/19 12/23/19 12/23/19 01:59 08:10 08:10 Creatine Kinase 51 CK-MB (CK-2) 0.87 1.10 Troponin I < 0.012 < 0.012 12/23/19 12/23/19 13:46 13:46 Creatine Kinase 65 CK-MB (CK-2) 1.26 Troponin I < 0.012 Current Medication List Generic Name Dose Route Start Last Admin Trade Name Freq PRN Reason Stop Dose Admin Acetaminophen 650 mg 12/24/19 10:27 Tylenol 325 Mg Tablet PO 01/23/20 10:26 Q6HP PRN For headache, pain or fever Al Hydrox/Mg Hydrox/Simethicone 30 ml 12/23/19 02:13 Maalox Plus Susp 30 Udcup PO 01/22/20 02:12 Q6HP PRN HEARTBURN Amlodipine Besylate 10 mg 12/23/19 10:00 12/24/19 13:53 Norvasc 10 Mg Tablet PO 01/22/20 09:59 10 mg DAILY DOUGIE Administration Atorvastatin Calcium 80 mg 12/23/19 22:00 12/24/19 22:45 Lipitor 80 Mg Tablet PO 01/22/20 21:59 80 mg QHS DOUGIE Administration Dextrose 12.5 gm 12/23/19 02:20 Dextrose Inj 50% Syringe (25 Gm/50 Ml) IV 01/22/20 02:19 PRN PRN FOR BG 50-69 IN ALERT PATIENT Protocol Dextrose 25 gm 12/23/19 02:20 Dextrose Inj 50% Syringe (25 Gm/50 Ml) IV 01/22/20 02:19 PRN PRN PER PROTOCOL Protocol Docusate Sodium 100 mg 12/23/19 10:00 12/24/19 17:49 Colace 100 Mg Capsule PO 01/22/20 09:59 Not Given BID DOUGIE Ezetimibe 10 mg 12/24/19 10:00 12/24/19 13:53 Zetia 10 Mg Tablet PO 01/23/20 09:59 10 mg DAILY DOUGIE Administration Furosemide 20 mg 12/24/19 10:00 12/24/19 13:53 Lasix 20 Mg Tablet PO 01/23/20 09:59 20 mg DAILY DOUGIE Administration Glipizide 10 mg 12/24/19 22:00 12/24/19 22:44 Glucotrol Xl 5 Mg Tab.Er PO 01/23/20 21:59 10 mg Q12 DOUGIE Administration Glucagon 1 mg 12/23/19 02:20 Glucagen Inj 1 Mg Vial IM 01/22/20 02:19 PRN PRN Evaluate for BG < 70 Protocol Glucose 15 gm 12/23/19 02:20 Glutose 40% Gel 15 Gm Tube PO 01/22/20 02:19 PRN PRN FOR BG 50-69 IN ALERT PATIENT Protocol Glucose 30 gm 12/23/19 02:20 Glutose 40% Gel 15 Gm Tube PO 01/22/20 02:19 PRN PRN FOR BG < 50 IN ALERT PATIENT Protocol Heparin Sodium (Porcine) 5,000 unit 12/23/19 06:00 12/25/19 06:09 Heparin Inj 5,000 Units/Ml 1 Ml Vial SUBCUT 01/22/20 05:59 Not Given Q8 DOUGIE Hydralazine HCl 20 mg 12/23/19 02:20 Apresoline Inj/Pf 20 Mg/1 Ml Sdv IV 01/22/20 02:19 Q4HP PRN Give For Sbp > 160 / Dbp > 100 Hydralazine HCl 100 mg 12/23/19 18:00 12/24/19 17:54 Apresoline 50 Mg Tablet PO 01/22/20 17:59 100 mg BID DOUGIE Administration Lactated Ringer's 1,000 mls @ 60 mls/hr 12/23/19 02:13 12/23/19 19:00 Lactated Ringers 1000 Ml Iv Soln IV 60 mls/hr CONTINUOUS PRN Administration THIS MED IS NOT "PRN" Insulin Glargine 10 unit 12/23/19 22:00 12/24/19 22:46 Lantus Insulin 100 Unit/1 Ml 10 Ml SUBCUT 01/22/20 21:59 10 unit QHS DOUGIE Administration Insulin Human Regular 0 - 15 unit 12/23/19 22:00 12/24/19 22:45 Humulin R (Pyxis) Insulin 100 Unit/Ml 3ml SUBCUT 01/22/20 02:18 5 unit ACHS DOUGIE Administration Protocol Levalbuterol HCl 0.63 mg 12/23/19 02:13 Xopenex Neb 0.63 Mg/3 Ml Ampul NEB 01/22/20 02:12 RTQ2HP PRN SHORTNESS OF BREATH Lorazepam 1 mg 12/23/19 02:19 Ativan Inj 2 Mg/1 Ml Vial IV 12/30/19 02:18 Q4HP PRN ANXIETY/AGITATION Losartan Potassium 50 mg 12/24/19 22:00 12/24/19 22:45 Cozaar 50 Mg Tablet PO 01/23/20 21:59 50 mg Q12 DOUGIE Administration Magnesium Hydroxide 30 ml 12/23/19 02:13 Milk Of Magnesia 30 Ml Udcup PO 01/22/20 02:12 HSP PRN FOR CONSTIPATION Metoprolol Succinate 25 mg 12/23/19 17:00 12/24/19 13:53 Toprol Xl 25 Mg Tab.Sr PO 01/22/20 16:59 25 mg DAILY DOUGIE Administration Minoxidil 2.5 mg 12/23/19 18:00 12/24/19 17:54 Loniten 2.5 Mg Tablet PO 01/22/20 17:59 2.5 mg BID DOUGIE Administration Morphine Sulfate 2 mg 12/23/19 02:19 Morphine 10 Mg/Ml Inj IV 12/30/19 02:18 Q2HP PRN FOR PAIN SCALE 1-2 Morphine Sulfate 3 mg 12/23/19 02:19 Morphine 10 Mg/Ml Inj IV 12/30/19 02:18 Q2HP PRN FOR PAIN SCALE 3-4 Morphine Sulfate 4 mg 12/23/19 02:19 Morphine 10 Mg/Ml Inj IV 12/30/19 02:18 Q2HP PRN PAIN SCALE OF 5 Nicotine 1 each 12/23/19 02:19 Nicoderm 21 Mg/24 Hr Transderm Patch TD 01/22/20 02:18 DAILYP PRN WITHDRAWAL SYMPTOMS Ondansetron HCl 4 mg 12/24/19 10:30 Zofran Inj/Pf 4 Mg/2 Ml Sdv IV 01/22/20 02:12 Q4HP PRN FOR NAUSEA/VOMITING Pantoprazole Sodium 20 mg 12/23/19 06:00 12/25/19 06:[address] Tablet PO 01/22/20 05:59 20 mg Q6AM DOUGIE Administration Sodium Chloride 2.5 ml 12/23/19 06:00 12/25/19 06:09 Saline Flush 2.5 Ml Monoject Prefil Syrin IV 01/22/20 05:59 2.5 ml Q8 DOUGIE Administration Discontinued Medications Generic Name Dose Route Start Last Admin Trade Name Amarjitq PRN Reason Stop Dose Admin Acetaminophen 650 mg 12/23/19 02:19 Tylenol 325 Mg Tablet PO 01/22/20 02:18 Q4HP PRN For headache, pain or fever Acetaminophen 650 mg 12/23/19 05:54 12/23/19 08:46 Tylenol 325 Mg Tablet PO 12/24/19 05:53 650 mg .BEFORE TRANSFUSION PRN Administration THIS MED IS NOT "PRN" Bisacodyl 20 mg 12/23/19 11:30 12/23/19 12:14 Dulcolax 5 Mg Tablet PO 12/23/19 11:31 20 mg NOW ONE Administration Diphenhydramine HCl 25 mg 12/23/19 05:54 12/23/19 08:46 Benadryl 25 Mg Capsule PO 12/24/19 05:53 25 mg .BEFORE TRANSFUSION PRN Administration THIS MED IS NOT "PRN" Diphenhydramine HCl 12.5 mg 12/24/19 10:21 Benadryl Inj 50 Mg/1 Ml Vial IV 12/24/19 13:21 .WHILE IN PACU PRN ITCHING Ephedrine Sulfate Confirm 12/24/19 11:48 Ephedrine Sulfate Inj 50 Mg/Ml Ampule Administered 12/24/19 11:49 Dose 50 mg .ROUTE .STK-MED ONE Furosemide 10 mg 12/23/19 05:54 12/23/19 12:13 Lasix Inj/Pf 20 Mg/2 Ml Sdv IV 12/24/19 05:53 10 mg .AFTER FIRST UNIT PRN Administration THIS MED IS NOT "PRN" Furosemide 20 mg 12/23/19 10:00 12/23/19 12:14 Lasix 20 Mg Tablet PO 01/22/20 09:59 20 mg DAILY DOUGIE Administration Glipizide 10 mg 12/23/19 10:00 12/23/19 17:36 Glucotrol Xl 5 Mg Tab.Er PO 01/22/20 09:59 Not Given BID DOUGIE Glipizide 10 mg 12/23/19 18:00 12/23/19 17:36 Glucotrol Xl 5 Mg Tab.Er PO 01/22/20 17:59 Not Given BID DOUGIE Hydralazine HCl 100 mg 12/23/19 10:00 12/23/19 12:14 Apresoline 50 Mg Tablet PO 01/22/20 09:59 100 mg BID DOUGIE Administration Sodium Chloride 500 mls @ 0 mls/hr 12/23/19 00:31 12/23/19 02:54 Nacl 0.9% 500 Ml Iv Soln IV 12/23/19 00:32 Infused NOW ONE Infusion Wide Open Sodium Chloride 250 mls @ 30 mls/hr 12/23/19 05:54 Nacl 0.9% 250 Ml Iv Soln IV 12/24/19 05:53 .DURING TRANSFUSION PRN THIS MED IS NOT "PRN" Sodium Chloride 250 mls @ 0 mls/hr 12/23/19 05:54 Nacl 0.9% 250 Ml Iv Soln IV 12/24/19 05:53 CONTINUOUS PRN AFTER EACH UNIT As Directed Insulin Glargine 10 unit 12/23/19 22:00 Lantus Insulin 100 Unit/1 Ml 10 Ml SUBCUT 01/22/20 21:59 QHS DOUGIE Insulin Glargine 10 unit 12/23/19 17:30 Lantus (Pyxis) Insulin 100 Unit/1 Ml 10 Ml SUBCUT 12/24/19 07:00 ASDIR PRN Insulin Glargine Confirm 12/23/19 23:02 12/23/19 21:30 Lantus (Pyxis) Insulin 100 Unit/1 Ml 10 Ml Administered 12/23/19 23:03 Not Given Dose 1 unit SUBCUT .STK-MED ONE Insulin Human Regular 0 - 15 unit 12/23/19 02:19 12/23/19 12:16 Humulin R (Pyxis) Insulin 100 Unit/Ml 3ml SUBCUT 01/22/20 02:18 5 unit ACHSP PRN Administration PER PROTOCOL Protocol Lidocaine HCl Confirm 12/24/19 11:14 Xylocaine 2% Inj-Pf (100 Mg/5ml) Syringe Administered 12/24/19 11:15 Dose 100 mg .ROUTE .STK-MED ONE Losartan Potassium 50 mg 12/23/19 10:00 12/23/19 12:13 Cozaar 50 Mg Tablet PO 01/22/20 09:59 50 mg BID DOUGIE Administration Losartan Potassium 50 mg 12/23/19 18:00 12/23/19 18:24 Cozaar 50 Mg Tablet PO 01/22/20 17:59 50 mg BID DOUGIE Administration Metoprolol Succinate 25 mg 12/23/19 10:00 12/23/19 12:14 Toprol Xl 25 Mg Tab.Sr PO 01/22/20 09:59 25 mg DAILY DOUGIE Administration Minoxidil 2.5 mg 12/23/19 10:00 12/23/19 12:17 Loniten 2.5 Mg Tablet PO 01/22/20 09:59 2.5 mg BID DOUGIE Administration Ondansetron HCl 4 mg 12/23/19 02:13 Zofran Inj/Pf 4 Mg/2 Ml Sdv IV 01/22/20 02:12 Q4HP PRN FOR NAUSEA/VOMITING Ondansetron HCl 4 mg 12/24/19 10:21 Zofran Inj/Pf 4 Mg/2 Ml Sdv IV 12/24/19 13:21 .WHILE IN PACU PRN NAUSEA AND VOMITING Polyethylene Glycol 255 gm 12/23/19 12:00 12/23/19 12:15 Miralax Powder 17 Gm/Packet PO 12/23/19 12:01 255 gm NOW ONE Administration Promethazine HCl 12.5 mg 12/24/19 10:21 Phenergan Inj 25 Mg/1 Ml Vial IV 12/24/19 13:21 .WHILE IN PACU PRN NAUSEA AND VOMITING Propofol Confirm 12/24/19 11:14 Diprivan Inj 200 Mg/20 Ml Vial Administered 12/24/19 11:15 Dose 200 mg IV .[facility] ONE Assessment & Plan - Diagnosis (1) Chest pain Qualifiers: Chest pain type: other chest pain Qualified Code(s): R07.89 - Other chest pain; R07.8 - Other chest pain Is this a current diagnosis for this admission?: Yes Plan: The patient remains asymptomatic since admission and after receiving a blood tra nsfusion that brought her hemoglobin back up to 10.9. She states that she has been getting this chest pain on a regular basis when she is anemic. Her cardiac troponins are negative x2 and she had a normal Lexiscan nuclear stress test in October 2018. It is likely that her chest pain is secondary to demand related ischemia secondary to her low hemoglobin however, she is now at her baseline and asymptomatic. Her echocardiogram in October 2018 was most significant for a normal ejection fraction and grade 2 diastolic dysfunction. She is currently stable and ready for discharge from the cardiovascular standpoint. She will follow-up with my partner, Dr. Poe in 1 to 2 weeks. At this point and, given that the patient does not have an active source of bleeding, I believe her aspirin may be restarted. If there is no evidence of bleeding then her low-dose Brilinta can also be restarted. Recommendations: -Restart baby aspirin. If tolerated, restart Brilinta 60 mg twice daily. -Follow-up with Dr. Poe with [facility] in 1 week, I will arrange for that follow-up. (2) Acute renal insufficiency Plan: Her renal function is essentially at her baseline. She will continue to follow- up with her primary care provider. (3) Symptomatic anemia Is this a current diagnosis for this admission?: Yes Plan: She remains asymptomatic. Recommendations: -Further management per primary care provider. (4) Hypertension Qualifiers: Hypertension type: essential hypertension Qualified Code(s): I10 - Essential (primary) hypertension Is this a current diagnosis for this admission?: Yes Plan: Her blood pressure is close to her goal. Recommendations: -Optimize outpatient medical regimen. -Further management per primary team. (5) Peripheral arterial disease Is this a current diagnosis for this admission?: Yes Plan: The patient has a left carotid bruit and she is status post right CEA on 06/29/2017. She denies new neurological complaints. Her most recent carotid u ltrasound in September 2019 demonstrated a 70 to 99% narrowing of the proximal left internal carotid artery which appears unchanged from a prior study on 07/20/2018. Recommendations: -Continue with current medical management. -Continue to follow-up with CT surgery at [facility]. -Resume Brilinta and aspirin as soon as cleared by GI/surgery.
--- NOTE | 2019-12-25 11:04 | RADIOLOGY REPORT (SQ) ---
EXAM DESCRIPTION: U/S RETROPERITON (RENAL/AORTA) IMAGES COMPLETED DATE/TIME: 12/25/2019 10:10 am REASON FOR STUDY: elevated creatinine COMPARISON: None. TECHNIQUE: Dynamic and static grayscale images acquired of the kidneys and bladder and recorded on P ACS. Additional selected color Doppler and spectral images recorded. LIMITATIONS: None. FINDINGS: RIGHT KIDNEY: Asymmetrically large measuring 13.7 cm. Normal echogenicity. No solid or erin picious masses. Multiple cysts, largest within the upper pole measuring 4.7 cm. No hydronephrosis. No calcifications. LEFT KIDNEY: Asymmetrically small measuring 9.4 cm. Normal echogenicity. No solid or suspicious mass es. Multiple cysts, largest measuring 1.2 cm. No hydronephrosis. 5 mm echogenic focus, likely nono bstructing stone. . BLADDER: No masses. OTHER FINDINGS: No other significant finding. IMPRESSION: 1. No hydronephrosis. 2. Multiple bilateral cysts, largest on the right measuring 4.7 cm. 3. 5 mm nonobstructing left renal stone. TECHNICAL DOCUMENTATION: JOB ID: [id number] 2010 [employer]- All Rights Reserved Reading location - IP/workstation name: [email or web address]
--- NOTE | 2019-12-25 12:25 | PDOC DISCHARGE SUMMARY ---
Impression - Admit/DC Date/PCP Admission Date/Primary Care Provider: 12/23/19 02:36 Discharge Date: 12/25/19 - Discharge Diagnosis (1) Chest pain Is this a current diagnosis for this admission?: Yes (2) Symptomatic anemia Is this a current diagnosis for this admission?: Yes (3) CKD (chronic kidney disease) Is this a current diagnosis for this admission?: Yes (4) Diabetes mellitus type 2 in nonobese Is this a current diagnosis for this admission?: Yes (5) Hypertension Is this a current diagnosis for this admission?: Yes (6) Peripheral arterial disease Is this a current diagnosis for this admission?: Yes (7) Duodenitis Is this a current diagnosis for this admission?: Yes (8) Esophagitis Is this a current diagnosis for this admission?: Yes - Additional Information Resuscitation Status: Full Code Referrals: MARGIE GARNETT MD [NO LOCAL MD] - 01/10/20 10:[address] OROZCO MD [ACTIVE PROVISIONAL STAFF] - 12/28/19 10:45 am (Dr. Orozco is not taking new patients ---- Dr. Poe will be seeing the patient.) Prescriptions: Pantoprazole Sodium [Protonix [address] Tablet] 20 mg PO QAM #30 tablet.dr Home Medications: Amlodipine Besylate [Norvasc 10 mg Tablet] 10 mg PO DAILY 12/23/19 Aspirin [Ecotrin 81 mg EC Tablet] 81 mg PO DAILY 12/23/19 Atorvastatin Calcium [Lipitor 80 mg Tablet] 80 mg PO QHS 12/23/19 Ezetimibe 10 mg PO DAILY 12/23/19 Furosemide [Lasix 20 mg Tablet] 20 mg PO DAILY 12/23/19 Glipizide [Glucotrol Xl 5 mg Tab.er] 10 mg PO BID 12/23/19 Hydralazine HCl 100 mg PO BID 12/23/19 Insulin Glargine,Hum.rec.anlog [Lantus Insulin 100 Unit/mL Insulin Pen] 10 units SUBCUT QHS 12/23/19 Losartan Potassium 50 mg PO BID 12/23/19 Metoprolol Succinate [Toprol Xl 25 mg Tab.sr] 25 mg PO DAILY 12/23/19 Minoxidil [Loniten 2.5 mg Tablet] 2.5 mg PO BID 12/23/19 Ticagrelor [Brilinta] 60 mg PO BID 12/23/19 Pantoprazole Sodium [Protonix [address] Tablet] 20 mg PO QAM #30 tablet. 12/25/19 History of Present Illiness History of Present Illness: ALYSON GARCIA is a 79 year old female who presented to the emergency room with a two-week history of chest pain. She admits having frequent (several times per day) random intermittent episodes of sharp pains going across her anterior chest for the last 2 weeks. The pain occurs last for less than a minute before resolving spontaneously as long as she remains calm and takes deep breaths. The pain has been associated with recent generalized weakness. She denies other associated or accompanying signs and symptoms. She admits numerous similar episodes related to her chronic gastrointestinal blood loss anemia. She recently completed the second of 2 intravenous infusions to treat her chronic anemia with her bolt cutter in [place]. She has not identified any additional aggravating or ameliorating factors for her chest pain. In the emergency room she was found to have an EKG and cardiac enzymes which were negative for acute cardiac ischemia or injury. She was noted to have an elevation of her creatinine since her last visit at this hospital, and a drop in her hemoglobin since her recent treatment. A stool occult blood test was positive. Patient was subsequently admitted to the hospital for further evaluation and treatment. Hospital Course Hospital Course: Patient was admitted for evaluation of chest pain. Troponin was negative x3. Hemoglobin was 8.4. Patient was evaluated by pump house engineer and was thought that her symptoms were Not secondary to ACS. She was thought to be having chest pain or shortness of breath secondary to symptomatic anemia. She was given 2 units of PRBC with improvement of her hemoglobin level to a stable 10.2-10.9. Her chest pain resolved after the blood transfusions and has not recurred since then. She underwent an EGD and a colonoscopy for evaluation of occult GI bleed which showed no evidence of bleeding but did show mild duodenitis, mild esophagitis and diverticulosis. Patient's anemia could still be secondary to occult chronic GI bleed or chronic kidney disease. Patient's creatinine was noted to be over 2. Renal ultrasound shows no evidence of hydronephrosis but does show cyst which patient states she has a history of. I have called patient's nephrology office and confirmed that her most recent creatinine level last month was 2.5. This seems to be patient's baseline and patient will continue to follow-up with Dr. High in the clinic. I have started patient on moderate dose of PPI for her duodenitis and esophagitis and patient is being discharged home safely. Physical Exam Vital Signs: Temp Pulse Resp BP Pulse Ox 98.0 F 52 L 16 125/58 L 100 12/25/19 08:35 12/25/19 08:35 12/25/19 08:35 12/25/19 08:35 12/25/19 08:35 Intake & Output 12/24/19 12/25/19 12/26/19 06:59 06:59 06:59 Intake Total 1930 1303 Output Total 0 Balance 0 1303 Weight 78.4 kg 76.9 kg General appearance: PRESENT: no acute distress, cooperative Respiratory exam: PRESENT: unlabored Neurological exam: PRESENT: alert, awake, oriented to person, oriented to place, oriented to time, oriented to situation Results Laboratory Results: WBC 6.0 10^3/uL (4.0-10.5) 12/25/19 05:53 RBC 3.47 10^6/uL (3.72-5.28) L 12/25/19 05:53 Hgb 10.9 g/dL (12.0-15.5) L 12/25/19 05:53 Hct 31.5 % (36.0-47.0) L 12/25/19 05:53 MCV 91 fl (80-97) 12/25/19 05:53 MCH 31.5 pg (27.0-33.4) 12/25/19 05:53 MCHC 34.7 g/dL (32.0-36.0) 12/25/19 05:53 RDW 16.7 % (11.5-14.0) H 12/25/19 05:53 Plt Count 171 10^3/uL (150-450) 12/25/19 05:53 Lymph % (Auto) 24.7 % (13-45) 12/22/19 22:54 Louisa % (Auto) 8.9 % (3-13) 12/22/19 22:54 Eos % (Auto) 1.5 % (0-6) 12/22/19 22:54 Baso % (Auto) 1.9 % (0-2) 12/22/19 22:54 Absolute Neuts (auto) 3.4 10^3/uL (1.7-8.2) 12/22/19 22:54 Absolute Lymphs (auto) 1.3 10^3/uL (0.5-4.7) 12/22/19 22:54 Absolute Monos (auto) 0.5 10^3/uL (0.1-1.4) 12/22/19 22:54 Absolute Eos (auto) 0.1 10^3/uL (0.0-0.6) 12/22/19 22:54 Absolute Basos (auto) 0.1 10^3/uL (0.0-0.2) 12/22/19 22:54 Seg Neutrophils % 63.0 % (42-78) 12/22/19 22:54 PT 12.2 SEC (11.4-15.4) 12/22/19 22:54 INR 0.91 12/22/19 22:54 APTT 27.9 SEC (23.5-35.8) 12/22/19 22:54 Sodium 136.9 mmol/L (137-145) L 12/25/19 05:53 Potassium 3.9 mmol/L (3.6-5.0) 12/25/19 05:53 Chloride 108 mmol/L (98-107) H 12/25/19 05:53 Carbon Dioxide 23 mmol/L (22-30) 12/25/19 05:53 Anion Gap 6 (5-19) 12/25/19 05:53 BUN 34 mg/dL (7-20) H 12/25/19 05:53 Creatinine 2.43 mg/dL (0.52-1.25) H 12/25/19 05:53 Est GFR ( Amer) 23 (>60) L 12/25/19 05:53 Est GFR (MDRD) Non-Af 19 (>60) L 12/25/19 05:53 Glucose 73 mg/dL (75-110) L 12/25/19 05:53 POC Glucose 222 mg/dL (70-110) H 12/25/19 11:54 Hemoglobin A1c % 5.0 % (4.7-6.0) 12/24/19 04:51 Calcium 9.4 mg/dL (8.4-10.2) 12/25/19 05:53 Magnesium 2.0 mg/dL (1.6-2.3) 12/24/19 04:51 Total Bilirubin 0.2 mg/dL (0.2-1.3) 12/22/19 22:54 Direct Bilirubin 0.0 mg/dL (0.0-0.4) 12/22/19 22:54 Neonat Total Bilirubin Not Reportable 12/22/19 22:54 Neonat Direct Bilirubin Not Reportable 12/22/19 22:54 Neonat Indirect Bili Not Reportable 12/22/19 22:54 AST 26 U/L (14-36) 12/22/19 22:54 ALT 20 U/L (<35) 12/22/19 22:54 Alkaline Phosphatase 115 U/L (38-126) 12/22/19 22:54 Creatine Kinase 65 U/L (30-135) 12/23/19 13:46 CK-MB (CK-2) 1.26 ng/mL (<4.55) 12/23/19 13:46 Troponin I < 0.012 ng/mL 12/23/19 13:46 Total Protein 7.0 g/dL (6.3-8.2) 12/22/19 22:54 Albumin 4.0 g/dL (3.5-5.0) 12/22/19 22:54 Triglycerides 98 mg/dL (<150) 12/24/19 04:51 Cholesterol 88.73 mg/dL (0-200) 12/24/19 04:51 LDL Cholesterol Direct 47 mg/dL (<100) 12/24/19 04:51 VLDL Cholesterol 20.0 mg/dL (10-31) 12/24/19 04:51 HDL Cholesterol 30 mg/dL (>40) L 12/24/19 04:51 Lipase 382.8 U/L (23-300) H 12/22/19 22:54 TSH 4.77 uIU/mL (0.47-4.68) H 12/24/19 04:51 Free T3 pg/mL 3.15 pg/mL (2.77-5.27) 12/24/19 04:51 Urine Color STRAW 12/23/19 03:28 Urine Appearance CLEAR 12/23/19 03:28 Urine pH 6.0 (5.0-9.0) 12/23/19 03:28 Ur Specific [place] 1.011 12/23/19 03:28 Urine Protein 100 mg/dL (NEGATIVE) H 12/23/19 03:28 Urine Glucose (UA) 150 mg/dL (NEGATIVE) H 12/23/19 03:28 Urine Ketones NEGATIVE mg/dL (NEGATIVE) 12/23/19 03:28 Urine Blood NEGATIVE (NEGATIVE) 12/23/19 03:28 Urine Nitrite NEGATIVE (NEGATIVE) 12/23/19 03:28 Urine Bilirubin NEGATIVE (NEGATIVE) 12/23/19 03:28 Urine Urobilinogen NEGATIVE mg/dL (<2.0) 12/23/19 03:28 Ur Leukocyte Esterase TRACE (NEGATIVE) H 12/23/19 03:28 Urine WBC (Auto) 1 /HPF 12/23/19 03:28 Urine RBC (Auto) 0 /HPF 12/23/19 03:28 Squamous Epi Cells Auto 1 /HPF 12/23/19 03:28 Urine Mucus (Auto) RARE /LPF 12/23/19 03:28 Urine Ascorbic Acid NEGATIVE (NEGATIVE) 12/23/19 03:28 POC Stool Occult Blood POSITIVE (NEGATIVE) 12/23/19 00:43 COVID-19 Source Cancelled 12/23/19 13:00 COVID-19 (ANA MARÍA) Cancelled 12/23/19 13:00 SARS-CoV-2 (PCR) NEGATIVE (NEGATIVE) 12/23/19 13:00 Blood Type O POSITIVE 12/23/19 01:17 Blood Type Confirm O POSITIVE 12/23/19 06:30 Antibody Screen NEGATIVE 12/23/19 01:17 Crossmatch See Detail 12/23/19 01:17 12/22/19 12/23/19 12/23/19 22:54 01:59 01:59 CK-MB (CK-2) 0.87 Troponin I < 0.012 Cancelled < 0.012 12/23/19 12/23/19 08:10 13:46 CK-MB (CK-2) 1.10 1.26 Troponin I < 0.012 < 0.012 Impressions: Renal Ultrasound 12/25/19 00:00 IMPRESSION: 1. No hydronephrosis. 2. Multiple bilateral cysts, largest on the right measuring 4.7 cm. 3. 5 mm nonobstructing left renal stone. Plan Time Spent: Less than 30 Minutes Stroke Is this a Stroke Patient?: No Acute Heart Failure - Is this a Heart Failure Patient?: No
[2019-12-25 13:07] VITALS: BP 151/47
== END 2019-12-25 13:29 | disposition home or self-care (01) | DRG 812 ==
LOC: ER 22:43 → EH 12-23 02:36 → 3W 12-23 04:35
PROVIDERS: ADMIT Emergency Medicine; ATTEND Internal Medicine
PROC: 30233N1 Transfusion of Nonautologous Red Blood Cells into Peripheral Vein, Percutaneous Approach (ICD-10-PCS; 2019-12-23)
PROC: 0DJD8ZZ Inspection of Lower Intestinal Tract, Via Natural or Artificial Opening Endoscopic (ICD-10-PCS; principal; 2019-12-24 11:00)
PROC: 0DJ08ZZ Inspection of Upper Intestinal Tract, Via Natural or Artificial Opening Endoscopic (ICD-10-PCS; 2019-12-24 11:00)
DX: D50.0 Iron deficiency anemia secondary to blood loss (chronic) (principal); K92.1 Melena; K29.80 Duodenitis without bleeding; K20.9 Esophagitis, unspecified; K57.30 Diverticulosis of large intestine without perforation or abscess without bleeding; E78.5 Hyperlipidemia, unspecified; N28.1 Cyst of kidney, acquired; D63.1 Anemia in chronic kidney disease; Z86.73 Personal history of transient ischemic attack (TIA), and cerebral infarction without residual deficits; E11.51 Type 2 diabetes mellitus with diabetic peripheral angiopathy without gangrene; Z79.02 Long term (current) use of antithrombotics/antiplatelets; Z20.828 Contact with and (suspected) exposure to other viral communicable diseases; I12.9 Hypertensive chronic kidney disease with stage 1 through stage 4 chronic kidney disease, or unspecified chronic kidney disease; E11.22 Type 2 diabetes mellitus with diabetic chronic kidney disease; N18.9 Chronic kidney disease, unspecified; Z79.82 Long term (current) use of aspirin; Z79.899 Other long term (current) drug therapy; Z79.84 Long term (current) use of oral hypoglycemic drugs
CPT/HCPCS: 36415; 36430; 43235; 45378; 71045; 76770; 80048; 80053; 80061; 81001; 813; 82270; 82550; 82553; 82962; 83036; 83690; 83735; 84443; 84481; 84484; 85025; 85027; 85610; 85730; 86850; 86900; 86901; 86920; 87635; 93005; 93010; 96360; 99285; J1815; J1940; J2001; J2704; J3490; J7040; J7120; P9016